=== PATIENT | male | born 1935 | race Caucasian/White ===

== ENCOUNTER 2024-10-27 14:46 | Inpatient (IN) | payer OTHER, MEDICARE, SELFPAY ==
[2024-10-27] VITALS (7 sets, daily range): BP systolic 134–165; BP diastolic 62–82; PULSE 60–79; RESP 14–16; TEMP 36.6–36.9; O2SAT 93–100; BMI 34.4; BMI 25.7
--- OUTSIDE RECORDS SUMMARY | 2024-10-27 15:02 | XMS_ITS | Clinical Summary ---
Author Organization [email or web address] Address [address] [place] [id number] Care Team Providers Care Hotbed Lever Operator Name Role Phone Adair Sharp MD Primary Care Provider Allergies No known active allergies Medications ascorbic acid (VITAMIN C) 500 mg tablet Take 1 tablet by mouth once daily. 0 1 Active latanoprost (XALATAN) 0.005 % ophthalmic solution INSTILL 1 DROP INTO EACH EYE IN THE EVENING 0 9 Active timolol maleate (TIMOPTIC) 0.5 % ophthalmic solution INSTILL 1 DROP INTO LEFT EYE IN THE MORNING 0 9 Active doxazosin (CARDURA) 4 mg tabletIndications:B enign prostatic hyperplasia with lower urinary tract symptoms, symptom details unspecified Take 1 Tablet (4 mg) by mouth at bedtime. 90 Tablet 3 4 Active hydroCHLOROthiazide 25 mg tabletIndications:E ssential hypertension Take 1 Tablet (25 mg) by mouth once daily. 90 Tablet 3 4 Active pravastatin (PRAVACHOL) 20 mg tabletIndications:H yperlipidemia, unspecified hyperlipidemia type Take 1 Tablet (20 mg) by mouth at bedtime. 90 Tablet 3 4 Active omeprazole (PRILOSEC) 20 mg Delayed-Release capsuleIndications: Gastroesophageal reflux disease with esophagitis without hemorrhage Take 1 Capsule (20 mg) by mouth once daily before a meal. 90 Capsule 3 4 Active Active Problems Problem Noted Date Diagnosed Date Essential hypertension 08/03/2021 Hyperlipidemia, unspecified 02/02/2020 Venous insufficiency 12/09/2019 Obesity (BMI 30-39.9) 01/31/2018 S/P total knee replacement, right 01/28/2018 Overview (01/28/2018): 2012 Esophageal reflux disease 10/22/2012 Malignant neoplasm of prostate 01/18/2011 Overview (01/28/2018): 2007, brachytherapy Other hyperlipidemia 01/20/2010 BPH (benign prostatic hyperplasia) 01/20/2010 Osteoarthritis 01/20/2010 Resolved Problems Problem Noted Date Diagnosed Date Resolved Date Venous ulcer of left leg 08/03/202109/2021 Venous ulcer of left leg 02/02/202103/2024 HTN (hypertension) 01/20/2010 0 Routine health maintenance 01/20/2010 1 Overview (01/20/2010): Last cpx-10/08 Last lipid 10/08, LDL-105 Last colonoscopy-09/30 Immunizations Immunization Administration Dates Next Due AMB Influenza, IIV4 PF (=>6 mos Flulaval,Fluzone Fluarix)(Flu Clinic Only) 01/07/2020,01/07/2020 COVID-19 vaccine (Moderna 100mcg/0.5mL) PF, MDV 06/12/2020,06/02/2020,05/15/2020 Influenza A (H1N1), Inactivated 04/14/2009 Influenza A (H1N1), Inactiva trupti (Age >=3 Years) 04/14/2009 Influenza, High-dose Inactivated 01/24/2016,12/31 Influenza, High-dose Quadriv alent Inactivated 12/22/2022,01/04/2022,01/05/2021 Influenza, IIV3 (Age 6-35 mos) 01/18/2011 Influenza, IIV3 (Age >=3 years) 01/19/20 11,12/21/2008,01/20/2005,01/04,01/28/2003,02/12/2002,02/13/2001 ,02/07/2000,01/22/1998 Influenza, Inactivated IIV3 (Age 65+ Years) Preserv Free 01/16/2019,01/28/2018,12/21/2016 Pneumococcal Conj 20-valent (Prevnar 20) 10/26/2022 Pneumococcal Poly,23-Valent (Pneumovax) 12/10/2002 Pneumococcal conj 13-Valent (Prevnar 13) 01/18/2015 RSV, Recombinant ADJ Reconst ituted (Arexvy 120MCG/0.5mL) 12/22/2022 Td (Age >=7 Years) 02/02/2021,12/03/2007, 999 Zoster (Shingrix-RZV, recombinant) 03/20/2022, Family History Medical History Relation Name Comments Cancer Father colon Cancer Mother breast Good Health Sister Relation Name Status Comments Father Mother Sister Social History Tobacco Use Types Packs/Day Years Used Date Smoking Tobacco: Former Cigarettes 3 39 1 165 - 1994 Smokeless Tobacco: Never Tobacco Cessation:Counseling Given: Yes Alcohol Use Standard Drinks/Week Comments No 0 (1 standard drink = 0.6 oz pur e alcohol) PHQ-2 Answer Date Recorded PHQ-2 TOTAL SCORE 0 03/31/2024 Social Connections Answer Date Recorded Do you often feel lonely or isolated from those around you? 0 03/31/2024 Financial Resource Strain Answer Date R ecorded Difficulty of Paying Living Expenses 3 03/31/2024 Difficulty of Paying Living Expenses Not on file 03/31/2024 Food Insecurity Answer Date Recorded Do you worry your food will run out before you are able to buy more? 1 03/31/2024 Transportation Needs Answer Date Record ed Does lack of transportation keep you from medica l appointments? 1 03/31/2024 Does lack of transportation keep you from work, meetings or getting things that you need? 1 03/31/2024 Housing Stability Answer Date Recorded What is your housing situation today? 1 03/31/2024 Utilities Answer Date Recorded Do you have trouble paying f or utilities (for example, heat, electricity, water, phone)? 1 03/31/2024 Sex and Gender Information Value Date Recorded Sex Assigned at Not on file Legal Sex Male 7:52 AM STOCK COUNTER Gender Identity Not on file Sexual Orientation Not on file Obstetrics History Last Filed Vital Signs Vital Sign Reading Time Taken Comments Blood Pressure 140/70 03/31/2024 10:17 AM STOCK COUNTER Pulse 64 03/31/2024 10:17 AM STOCK COUNTER Temperature 36.7 C (98 F) 07/29/2021 4:10 PM CDT Respiratory Rate 16 07/29/2021 5:57 PM CDT Oxygen Saturation 97% 08/03/2021 7:50 AM CDT Inhaled Oxygen Concentration - - Weight 120.7 kg (266 lb) 03/31/2024 10:17 AM STOCK COUNTER Height 185 cm (6' 0.84) 03/31/2024 10:17 AM STOCK COUNTER Body Mass Index 35.25 03/31/2024 10:17 AM STOCK COUNTER Plan of Treatment Health Maintenance Due Date Last Done Comments COVID-19 vaccine series ( season) 2024 12/17/2023, 01/12/2023, 01/04/2022, Additional history exists Influenza Vaccine (#1) 2024 , 01/07/2020, 01/16/2019, Additional history exists BMI (ht and wt on same day) for age 18+ 03/31/2025 03/31/2024, 02/07/2023, 02/06/2022, Additional history exists Depression screening for age 12+ 03/31/2025 03/31/2024, 02/07/2023, 02/07/2022, Additional history exists Medicare Wellness for age 65+ 04/01/2025 03/31/2024, 02/07/2023, 02/06/2022, Additional history exists Tetanus booster 02/02/2031 02/02/2021, 05/2007, 04/02/1998 Zoster (shingles) series for age 50+ Completed 03/20/2022, 01/14/2022 Pneumococcal series for age 50+ Completed 10/26/2022, 01/18/2015, 12/10/2002 RSV vaccine for adults or Completed 12/22/2022 Hepatitis B series for 19+ Aged Out N o longer eligible based on patient's age to complete this topic Insurance [facility] MR Care Teams Hotbed Lever Operator Relationship Specialty [place] [address] [place] [address] PCP - General Family Practice 01/28/18
--- NOTE | 2024-10-27 15:03 | CRLHL7_ITS ---
For Patients: As a result of the Cures Act, medical imaging exams and procedure reports are released immediately into your electronic medical record. You may view this report before your referring provider. If you have questions, please contact your health care provider. Indication: Left hip fracture. Technique: Frontal view of the pelvis two views left hip Comparison: None. Findings: Moderately displaced acted intertrochanteric comminuted left femoral neck fracture. The hip appears to be located with moderate osteoarthritis. The obturator ring is intact. Brachytherapy seeds within the prostate. Impression: Displaced left femoral neck fracture. Dictated by Perry Monzon MD @ 10/27/2024 4:29:45 PM (Electronically Signed)
--- NOTE | 2024-10-27 15:04 | ED.GENADULT ---
HPI - General Adult General Chief complaint: Extremity Pain/Injury, Lower Stated complaint: Unspecified complaint Time Seen by Provider: 10/27/24 14:49 Source: patient and EMS Mode of arrival: EMS Limitations: no limitations History of Present Illness HPI narrative: [age] year old male coming in today complaining of left hip pain. 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 He denies hitting his head, denies losing consciousness. Denies pain in the upper extremities, chest or abdomen. Past medical history significant for hypertension, hyperlipidemia. Related Data Home Medications ?Medication ?Instructions ?Recorded ?Confirmed doxazosin 4 mg tablet 4 mg PO HS 10/27/24 10/27/24 hydrochlorothiazide 25 mg tablet 25 mg PO DAILY 10/27/24 10/27/24 latanoprost 0.005 % eye drops 1 drp ophthalmic (eye) QPM 10/27/24 10/27/24 omeprazole 20 mg capsule,delayed 20 mg PO DAILY 10/27/24 10/27/24 release pravastatin 20 mg tablet 20 mg PO HS 10/27/24 10/27/24 timolol maleate 0.5 % eye drops 1 drp ophthalmic (eye-left) QAM 10/27/24 10/27/24 Allergies Allergy/AdvReac Type Severity Reaction Status Date / Time No Known Drug Allergies Allergy Verified 10/27/24 14:51 Review of Systems Status of ROS: Reports: 6 or more systems reviewed and unremarkable except as noted in History and below Exam Narrative: Exam Narrative: Well-nourished well-developed patient in no acute distress. Alert and oriented. Answers questions appropriately. Mood and affect are appropriate. Thoughts are goal oriented and rational. No tangential or magical thinking noted. Patient speaks in full sentences without needing to catch his breath. HEENT: Normocephalic atraumatic. Pupils are equally round reactive to light. Extraocular muscles are intact. Conjunctivae are moist without any icterus noted. Moist mucous membranes. Cardiovascular: Heart is regular rate and rhythm . Lungs: Clear to auscultation bilaterally no wheezes rhonchi or rales are appreciated. Patient takes deep breaths without any discomfort. Abdomen: Soft and nontender nondistended with normal bowel sounds. Extremities: Patient has tenderness to palpation over the superior lateral thigh. He cannot lift that left leg off the bed. Skin: Well perfused. Const: Vital Signs, click to edit/add: Vital Signs - 24 hr 10/27/24 14:49 Temperature 98.5 F Pulse Rate [Pulse Oximeter] 74 Respiratory Rate 16 Blood Pressure [Ri ght Upper Arm] 141/62 H Pulse Oximetry 93 Oxygen Delivery Me thod Room Air Course Course ED Course: Symptoms concerning for hip fracture. Therefore we proceeded with an x-ray of the hip which does show a displaced femoral neck fracture. Hemoglobins minimally low at 11.7, normal white cell count. Chemistries are unremarkable, but creatinine clearance 42. Chest x-ray, read by me, does not show any acute pathology. EKG, read by me, shows normal sinus rhythm with a pulse of 66, low voltage QRS. Patient given fentanyl for pain control. Discussed patient with Orthopedics team who recommended admission and probable surgery in the morning. Vital Signs Vital signs: Initial Vital Signs Temperature 98.5 F 10/27/24 14:49 Temperature Source Temporal Artery Scan 10/27/24 14:49 Pulse Rate 74 10/27/24 14:49 Respiratory Rate 16 10/27/24 14:49 Blood Pressure 141/62 H 10/27/24 14:49 Blood Pressure Mean 88 10/27/24 14:49 Blood Pressure Position Supine 10/27/24 14:49 Pulse Oximetry 93 10/27/24 14:49 Oxygen Delivery Method Room Air 10/27/24 14:49 Vital Signs Temperature 98.5 F 10/27/24 14:49 Pulse Rate 74 10/27/24 14:49 Respiratory Rate 16 10/27/24 14:49 Blood Pressure 141/62 H 10/27/24 14:49 Pulse Oximetry 93 10/27/24 14:49 Oxygen Delivery Method Room Air 10/27/24 14:49 Temperature 98.5 F 10/27/24 14:49 Pulse Rate 74 10/27/24 14:49 Respiratory Rate 16 10/27/24 14:49 Blood Pressure 141/62 H 10/27/24 14:49 Pulse Oximetry 93 10/27/24 14:49 Oxygen Delivery Method Room Air 10/27/24 14:49 Medical Decision Making MDM Narrative Medical decision making narrative: 89-year-old male with a femoral neck fracture. Patient will be admitted for further management. Lab Data Lab results reviewed: Yes I reviewed the patient's lab results Labs: Lab Results 10/27/24 Range/Units 15:18 WBC 7.97 (4.50-11.00) K/uL RBC 4.10 L (4.30-5.90) m/uL Hgb 11.7 L (13.5-17.5) gm/dL Hct 35.3 L (37.0-53.0) % MCV 86 (80-100) fL MCH 29 (26-34) pg MCHC 33 (32-36) gm/dL RDW Coeff of Marita 14.2 (11.5-15.5) % Plt Count 142 (140-440) K/uL Neut % (Auto) 68.3 (42.0-72.0) % Lymph % (Auto) 17.6 L (20-44) % Becker % (Auto) 8.3 (0.0-11.0) % Eos % (Auto) 4.9 (0.0-7.0) % Baso % (Auto) 0.6 (0.0-3.0) % Neut # (Auto) 5.45 (1.7-7.0) K/uL Lymph # (Auto) 1.40 (0.90-2.90) K/uL Becker # (Auto) 0.70 (0.00-0.90) K/UL Eos # (Auto) 0.39 (0.00-0.50) K/uL Baso # (Auto) 0.05 (0.00-0.30) K/uL Abs Immat Gran (auto) 0.02 (0.00-0.30) K/uL Imm/Tot Granulo (auto) 0.3 % Sodium 138 (135-149) mmol/L Potassium 4.1 (3.6-5.1) mmol/L Chloride 105 (96-114) mmol/L Carbon Dioxide 27 (20-32) mmol/L Anion Gap 6 L (7-15) mEq/L BUN 27 (7-30) mg/dL Creatinine 1.4 (0.5-1.5) mg/dL Estimated Creat Clear 42.75 Estimated GFR 48 ml/min Glucose 150 H (60-115) mg/dL Calcium 8.8 (8.4-10.6) mg/dL Imaging Data X-ray hip: Attestation: I have reviewed the pertinent imaging results. Radiologist's impression: Technique: Frontal view of the pelvis two views left hip Comparison: None. Findings: Moderately displaced acted intertrochanteric comminuted left femoral neck fracture. The hip appears to be located with moderate osteoarthritis. The obturator ring is intact. Brachytherapy seeds within the prostate. Impression: Displaced left femoral neck fracture. Chest x-ray: Attestation: I have reviewed the pertinent imaging results. Radiologist's impression: TECHNIQUE: Chest radiograph 1 view COMPARISON: None FINDINGS: The sensitivity and specificity of the exam are severely limited by the patient`s body habitus. Mediastinum: The mediastinum is normal in appearance. The heart silhouette is normal in size and morphology. Lung: Both lungs are unremarkable in appearance. No sign of pleural effusion seen. No pneumothorax is identified. The left lateral costophrenic sulcus is partially excluded. Bone and Soft tissue: Mild dextroscoliosis of the thoracic spine with moderate degenerative disc disease seen. IMPRESSION: 1. No acute cardiopulmonary disease is seen. If there is a high clinical index of suspicion for rib injury, dedicated rib series radiographs are recommended. ECG Data Attestation: I personally reviewed and interpreted this ECG as follows: Discharge Plan Discharge Clinical Impression: Intertrochanteric fracture of femur Patient Disposition: Admitted As Inpatient Condition: Stable
--- NOTE | 2024-10-27 15:06 | CRLHL7_ITS ---
For Patients: As a result of the Cures Act, medical imaging exams and procedure reports are released immediately into your electronic medical record. You may view this report before your referring provider. If you have questions, please contact your health care provider. INDICATION: Fall, chest injury TECHNIQUE: Chest radiograph 1 view COMPARISON: None FINDINGS: The sensitivity and specificity of the exam are severely limited by the patient`s body habitus. Mediastinum: The mediastinum is normal in appearance. The heart silhouette is normal in size and morphology. Lung: Both lungs are unremarkable in appearance. No sign of pleural effusion seen. No pneumothorax is identified. The left lateral costophrenic sulcus is partially excluded. Bone and Soft tissue: Mild dextroscoliosis of the thoracic spine with moderate degenerative disc disease seen. IMPRESSION: 1. No acute cardiopulmonary disease is seen. If there is a high clinical index of suspicion for rib injury, dedicated rib series radiographs are recommended. Dictated by Benjamin Becerra MD @ 10/27/2024 4:39:51 PM Dictated by: Benjamin Becerra MD @ 10/27/2024 16:39:54 (Electronically Signed)
[2024-10-27 15:26] LABS: Hematocrit* 35.3 % (37.0-53.0); Hemoglobin* 11.7 gm/dL (13.5-17.5); Immature Granulocytes Abs Auto 0.02 K/uL (0.00-0.30); Immature Granulocytes Pct Auto 0.3 %; Lymphocytes Absolute Auto 1.40 K/uL (0.90-2.90); Mean Corpuscular HGB Conc 33 gm/dL (32-36); Mean Corpuscular Hemoglobin 29 pg (26-34); Mean Corpuscular Volume 86 fL (80-100); RDW Coefficient of Variation % 14.2 % (11.5-15.5); Red Blood Count* 4.10 m/uL (4.30-5.90); White Blood Count* 7.97 K/uL (4.50-11.00)
[2024-10-27 15:36] LABS: Slide Review Reflex No
[2024-10-27 15:41] LABS: Chloride* 105 mmol/L (96-114); Potassium* 4.1 mmol/L (3.6-5.1); Sodium* 138 mmol/L (135-149)
[2024-10-27 15:44] LABS: Blood Urea Nitrogen* 27 mg/dL (7-30); Creatinine* 1.4 mg/dL (0.5-1.5); Est. Creatinine Clearance* 42.75; Estimated Glomerular Filt Rate 48 ml/min
[2024-10-27 15:45] LABS: Anion Gap 6 mEq/L (7-15); Calcium* 8.8 mg/dL (8.4-10.6); Carbon Dioxide* 27 mmol/L (20-32); Glucose* 150 mg/dL (60-115)
--- NOTE | 2024-10-27 17:39 | P.IMHP_ITS ---
Assessment and Plan Assessment and plan (1) Intertrochanteric fracture of femur: Problem comment: - status post fall from standing state, tripped over hose - Dr. Mcmanus, orthopedic surgeon, will consult with patient tomorrow for surgical repair options - NPO after midnight Status: Acute (2) Anemia: Problem comment: - chronic Status: Acute (3) Venous insufficiency: Problem comment: - chronic, utilizes compression wraps during the day Status: Acute (4) Essential hypertension: Status: Acute (5) BPH (benign prostatic hyperplasia): Status: Acute Plan 1. Reviewed impression, plans, recommendations with patient 2. Answered his questions to satisfaction 3. Check EKG 4. 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 Has had left hip pain since. 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 Unfortunately he tripped over a hose while carrying out this responsibility. No other pains. Denies striking his head or having loss of co nsciousness. In our emergency department he was found to have nondisplaced left femoral neck fracture. Consultation between the emergency department physician and orthopedic surgery physician undertaken and it was recommended that patient be admitted to the hospital for preparation for orthopedic surgery stabilization of the fracture tomorrow morning. Review of Systems Status of ROS: Reports: 6 or more systems reviewed and unremarkable except as noted in History and below Narrative: Generally healthy. Denies cardiopulmonary concerns. Active, still working. Denies gastrointestinal or genitourinary concerns. Acknowledges chronic bilateral lower extremity edema for which she utilizes compression wraps every morning and removes them in the evening. No other recent trauma or injury. No recent travel. No recent illness. Lives at home with his . They have been for 67 years. Review of outside medical record, 03/31/2024, with mini cog test score of 3 suggestive of possible cognitive impairment Medical Decision Making Medical Decision Making During This Stay, Who Would You Like To Make Decisions For You In The Event You Are Unable To Make Them For Yourself?: His son, Deuce, . Relevant situational information: Does not want to be kept alive in a persistent vegetative state. [facility] Medical History (Updated 10/27/24 @ 18:00 by Hossein Gonzales MD) Glaucoma ?H40.9 - Unspecified glaucoma (ICD-10) Venous insufficiency (12/09/19) ?I87.2 - Venous insufficiency (chronic) (peripheral) (ICD-10) Osteoarthritis (01/20/10) ?M19.90 - Unspecified osteoarthritis, unspecified site (ICD-10) Obesity (BMI 30-39.9) (01/31/18) ?E66.9 - Obesity, unspecified (ICD-10) Malignant neoplasm of prostate (01/18/11) ?C61 - Malignant neoplasm of prostate (ICD-10) Hyperlipidemia, unspecified (02/02/20) ?E78.5 - Hyperlipidemia, unspecified (ICD-10) Essential hypertension (08/03/21) ?I10 - Essential (primary) hypertension (ICD-10) Esophageal reflux disease (10/22/12) ?K21.9 - Gastro-esophageal reflux disease without esophagitis (ICD-10) BPH (benign prostatic hyperplasia) (01/20/10) ?N40.0 - Benign prostatic hyperplasia without lower urinary tract symptoms (ICD-10) Surgical History Status post right knee replacement ?Z96.651 - Presence of right artificial knee joint (ICD-10) Social History Smoking Status: Former smoker What tobacco products do you use: cigarettes Smoking quit date/years: >15 years ago How often do you have a drink containing alcohol: never AUDIT-C Alcohol total score: 0 Non-prescribed substance use: denies use Meds Home Medications and Allergies Home Medications ?Medication ?Instructions ?Recorded ?Confirmed ?Type doxazosin 4 mg tablet 4 mg PO HS 10/27/24 10/27/24 History hydrochlorothiazide 25 mg tablet 25 mg PO DAILY 10/27/24 History latanoprost 0.005 % eye drops 1 drp ophthalmic (eye) Q PM 10/27/24 10/27/24 History omeprazole 20 mg capsule,delayed 20 mg PO DAILY 10/27/24 History release pravastatin 20 mg tablet 20 mg PO HS 10/27/24 5 History timolol maleate 0.5 % eye drops 1 drp ophthalmic (eye- left) QAM 10/27/24 10/27/24 History Allergies Allergy/AdvReac Type Severity Reaction Status Date / Time No Known Drug Allergies Allergy Verified 10/27/24 14:51 Exam Narrative: Exam Narrative: Examined patient in the emergency department. He is semi recumbent with the head of the bed elevated about 30? and legs extended in front of him and he appears comfortable. Alert and oriented x4. Friendly, articulate, cooperative. Vision and hearing are adequate. Midline nasal septum. Dentition in fair repair. Moist buccal mucosa. No icterus. Conjugate gaze. Neck is supple. Midline trachea. No head neck lymphadenopathy. No hepatojugular reflux or carotid bruits. Lungs are clear to auscultation without wheezing, rhonchi, rales. Chest wall excursions are full. No CVA tenderness. Heart tones with regular rhythm, normal S1-S2, grade 2/6 systolic murmur across precordium. Abdomen with active bowel sounds, soft, nontender. Bilateral lower extremities with compression wraps. Trace edema lower extremities. Palpable pulses upper and lower extremities. No focal motor neurologic deficits. Cranial nerves 3-12 grossly normal. Skin is dry, intact. Const: Vital Signs, click to edit/add: Vital Signs - 24 hr 10/27/24 14:49 10/27/24 16:53 10/27/24 17:00 Temperature 98.5 F Pulse Rate 71 Pulse Rate [Pulse Oximeter] 74 Respiratory Rate 16 14 Blood Pressure 162/82 H Blood Pressure [Ri ght Upper Arm] 141/62 H Pulse Oximetry 93 100 98 Oxygen Delivery Me thod Room Air Hospitalist - H&P: Result Labs Labs: Short CBC 10/27/24 Range/Units 15:18 WBC 7.97 (4.50-11.00) K/uL Hgb 11.7 L (13.5-17.5) gm/dL Hct 35.3 L (37.0-53.0) % Plt Count 142 (140-440) K/uL [facility] 10/27/24 15:18 Sodium 138 Potassium 4.1 Chloride 105 Carbon Dioxide 27 BUN 27 Creatinine 1.4 Glucose 150 H Calcium 8.8 Imaging Left hip x-ray: Attestation: I have reviewed the pertinent imaging results. Radiologist's impression: Findings: Moderately displaced acted intertrochanteric comminuted left femoral neck fracture. The hip appears to be located with moderate osteoarthritis. The obturator ring is intact. Brachytherapy seeds within the prostate. Impression: Displaced left femoral neck fracture. Chest x-ray: Attestation: I have reviewed the pertinent imaging results. Radiologist's impression: No acute cardiopulmonary process and no obvious rib fracture
--- NOTE | 2024-10-27 18:44 | PC.NURSE ---
Pt up to floor at 1615, VSS but hypertensive. Rates pain in the left hip 3 when not moving and 7-8/10 when moving. Alert and oriented x4, Afebrile and 95% on RA. Patient wraps legs bilaterally with ARUNA bandage every morning and takes off at NOC. Patient tolerating a reg diet but will be NPO in prep for surgery 10/[address] Mcmanus.
[2024-10-27] MEDS: ACETAMINOPHEN 325 MG TABLET 650 MG PO (20:33)
[2024-10-27] MEDS: SODIUM CHLORIDE 0.9 % (FLUSH) 10 ML SYRINGE 5 ML IVF (20:34)
[2024-10-27] MEDS: MORPHINE 4 MG/ML INJ IVP (20:42)
[2024-10-27] MEDS: DOXAZOSIN 4 MG TABLET PO (21:05)
[2024-10-28] VITALS (27 sets, daily range): BP systolic 94–156; BP diastolic 50–89; PULSE 56–97; RESP 12–24; TEMP 36.1–36.9; O2SAT 90–97
[2024-10-28] MEDS: MORPHINE 4 MG/ML INJ IVP (02:23)
[2024-10-28] MEDS: SODIUM CHLORIDE 0.9 % (FLUSH) 10 ML SYRINGE 5 ML IVF (02:23)
--- NOTE | 2024-10-28 06:35 | PC.NURSE ---
End of shift report [id number]: VSS. Afebrile. On RA. AxOx4. Rates pain from a 2-4/10 prn pain meds offered and given with relief. Intermittent ice applied. Pt NPO since 0000. Compression wraps removed overnight per pts request, BLE 2+ pitting edema. Pt utilizes urinal at bedside. Bed alarm on, call light within reach.?
[2024-10-28 06:54] LABS: HCO3 VBG 27 mmol/L (21-28); Hematocrit* 30.2 % (37.0-53.0); Hemoglobin* 10.0 gm/dL (13.5-17.5); Lactate* 1.6 mmol/L (0.5-1.9); Mean Corpuscular HGB Conc 33 gm/dL (32-36); Mean Corpuscular Hemoglobin 28 pg (26-34); Mean Corpuscular Volume 86 fL (80-100); PCO2 VBG 45 mmHG (40-50); PO2 VBG 33.5 mmHG (25-47); Red Blood Count* 3.52 m/uL (4.30-5.90); White Blood Count* 9.41 K/uL (4.50-11.00); pH VBG 7.393 (7.32-7.43)
[2024-10-28 06:56] LABS: Slide Review Reflex No
[2024-10-28 07:15] LABS: Albumin* 3.2 g/dL (3.3-5.0); Chloride* 103 mmol/L (96-114); Sodium* 135 mmol/L (135-149)
[2024-10-28 07:16] LABS: Potassium* 3.8 mmol/L (3.6-5.1)
[2024-10-28 07:18] LABS: Blood Urea Nitrogen* 31 mg/dL (7-30); Creatinine* 1.4 mg/dL (0.5-1.5); Est. Creatinine Clearance* 42.75; Estimated Glomerular Filt Rate 48 ml/min
[2024-10-28 07:19] LABS: Anion Gap 5 mEq/L (7-15); Calcium* 8.3 mg/dL (8.4-10.6); Carbon Dioxide* 27 mmol/L (20-32); Glucose* 137 mg/dL (60-115)
[2024-10-28] MEDS: LACTATED RINGERS 1000 ML 1,000 ML 125 ML IV ×2 (08:31→10:30)
--- NOTE | 2024-10-28 08:48 | CRLHL7_ITS ---
For Patients: As a result of the Century Cures Act, medical imaging exams and procedure reports are released immediately into your electronic medical record. You may view this report before your referring provider. If you have questions, please contact your health care provider. INDICATION: Intraoperative guidance. IMPRESSION: Fluoroscopic imaging provided for the procedure. 125 seconds fluoro time reported. Four images show cephalomedullary nail placement left hip and femur. Brachytherapy seeds noted in the expected position of the prostate. Dictated by Mazin Gallardo MD @ 11/01/2024 12:42:31 PM (Electronically Signed)
--- NOTE | 2024-10-28 10:22 | P.NB_ITS ---
Nerve Block Nerve Block Time Seen by Provider: 08:45 Date Seen: 10/28/24 Type of block requested by surgeon for post-operative analgesia: CHAI/LFCN Side: left Time out performed: Yes Verification of patient name: Yes Verification of date of : Yes Site marking: site marked Name of person performing procedure: Ivana Continuous monitoring Was continuous monitoring of O2 sat, B/P, manager monitoring, recorded every 15 minutes?: Yes Procedure Checklist: sterile prep, needles and gloves Ultrasound guided. Images saved: Yes Medications given in 5ml increments after negative aspiration: Ropivicaine %: 0.5 mL: 26 Needle gauge: 20 Precedex (mcg): 25 Patient tolerated procedure well: Yes Block Charges Block Charge (with Pro Fee): Other Periph Nerve Block Use of Ultrasound Machine for Block: Yes- US Guidance/pain block
--- NOTE | 2024-10-28 10:33 | PM.ORCN ---
History of Present Illness HPI Date Seen: 10/28/24 Chief complaint: Right hip pain status post fall from standing Narrative: Patient is a community ambulator, without assist. He fell yesterday sustaining a left hip fracture. He is admitted for treatment. He has never injured this hip or had surgery on it previously. He does not have diabetes, does not smoke cigarettes and is not on blood thinners. Review of Systems Narrative: The patient denies: Fever, night sweats, shaking chills, nausea, vomiting, diarrhea, chest pain, chest pressure, shortness of breath, no rash, no change in hearing or vision, no issues with bleeding or clotting [facility] Medical History Glaucoma ?H40.9 - Unspecified glaucoma (ICD-10) Venous insufficiency (12/09/19) ?I87.2 - Venous insufficiency (chronic) (peripheral) (ICD-10) Osteoarthritis (01/20/10) ?M19.90 - Unspecified osteoarthritis, unspecified site (ICD-10) Obesity (BMI 30-39.9) (01/31/18) ?E66.9 - Obesity, unspecified (ICD-10) Malignant neoplasm of prostate (01/18/11) ?C61 - Malignant neoplasm of prostate (ICD-10) Hyperlipidemia, unspecified (02/02/20) ?E78.5 - Hyperlipidemia, unspecified (ICD-10) Essential hypertension (08/03/21) ?I10 - Essential (primary) hypertension (ICD-10) Esophageal reflux disease (10/22/12) ?K21.9 - Gastro-esophageal reflux disease without esophagitis (ICD-10) BPH (benign prostatic hyperplasia) (01/20/10) ?N40.0 - Benign prostatic hyperplasia without lower urinary tract symptoms (ICD-10) Surgical History Status post right knee replacement ?Z96.651 - Presence of right artificial knee joint (ICD-10) Social History What is your current living situation?: I presently have a place to live Problems where you live: no known problems Problems where you live details: no known problems In the past 12 months, utilities in danger of being shut off: no In past 12 months, lack of transportation kept you from medical appts, meetings, work, or getting things needed for daily living: no In the past 12 mos, have been you worried that your food would run out before you had money to buy more?: never true In the past 12 mos, the food you bought just didn't last and you didn't have money to buy more?: never true Highest level of school completed/degree received: high school graduate Smoking Status: Former smoker What tobacco products do you use: cigarettes Smoking quit date/years: >15 years ago How often do you have a drink containing alcohol: never AUDIT-C Alcohol total score: 0 Non-prescribed substance use: denies use Caffeine: Yes How often does anyone, including family, friends and others, physically hurt you: never How often does anyone, including family, friends and others, insult or talk down to you: never How often does anyone, including family, friends and others, threaten you with harm: never How often does anyone, including family, friends and others, scream or curse at you: never service: Yes Meds Home Medications and Allergies Home Medications ?Medication ?Instructions ?Recorded ?Confirmed ?Type doxazosin 4 mg tablet 4 mg PO HS 10/27/24 10/27/24 History hydrochlorothiazide 25 mg tablet 25 mg PO DAILY 10/27/24 10/27/24 History latanoprost 0.005 % eye drops 1 drp ophthalmic (eye) QPM 10/27/24 10/27/24 History omeprazole 20 mg capsule,delayed 20 mg PO DAILY 10/27/24 10/27/24 History release pravastatin 20 mg tablet 20 mg PO HS 10/27/24 10/27/24 History timolol maleate 0.5 % eye drops 1 drp ophthalmic (eye-left) QAM 10/27/24 10/27/24 History Allergies Allergy/AdvReac Type Severity Reaction Status Date / Time No Known Drug Allergies Allergy Verified 10/27/24 14:51 Ortho Exam Narrative Exam Narrative: The patient is alert and oriented x3, in no acute distress, they are able to converse in a normal speaking voice without obvious hearing loss and with nonlabored breathing. The patient is examined supine in the hospital bed. The skin about the left hip is intact, without surgical scars or ecchymosis. CMS to the left foot is normal. Const Vital Signs, click to edit/add: Vital Signs - 24 hr 10/27/24 14:49 10/27/24 16:53 10/27/24 17:00 Temperature 98.5 F Pulse Rate 71 Pulse Rate [Pulse Oximeter] 74 Respiratory Rate 16 14 Blood Pressure 162/82 H Blood Pressure [Right Arm] Blood Pressure [Right Upper Arm] 141/62 H Pulse Oximetry 93 100 98 Oxygen Delivery Method Room Air 10/27/24 18:13 10/27/24 18:13 10/27/24 19:00 Temperature 97.8 F 97.9 F Pulse Rate Pulse Rate [Pulse Oximeter] 68 79 Respiratory Rate 16 16 16 Blood Pressure Blood Pressure [Right Arm] 165/74 H 134/68 Blood Pressure [Right Upper Arm] Pulse Oximetry 95 95 97 Oxygen Delivery Method Room Air Room Air Room Air 10/27/24 19:41 10/27/24 23:00 10/27/24 23:00 Temperature 98.4 F Pulse Rate Pulse Rate [Pulse Oximeter] 79 60 Respiratory Rate 16 16 16 Blood Pressure Blood Pressure [Right Arm] 143/76 H Blood Pressure [Right Upper Arm] Pulse Oximetry 94 94 Oxygen Delivery Method Room Air Room Air 10/28/24 03:00 10/28/24 07:00 10/28/24 07:00 Temperature 97.7 F Pulse Rate Pulse Rate [Pulse Oximeter] 72 72 Respiratory Rate 18 18 18 Blood Pressure Blood Pressure [Right Arm] 146/80 H Blood Pressure [Right Upper Arm] Pulse Oximetry 95 95 Oxygen Delivery Method Room Air Room Air 10/28/24 07:00 Temperature 98.5 F Pulse Rate Pulse Rate [Pulse Oximeter] 75 Respiratory Rate 18 Blood Pressure Blood Pressure [Right Arm] 142/65 H Blood Pressure [Right Upper Arm] Pulse Oximetry 95 Oxygen Delivery Method Room Air Results Labs Labs: Laboratory Results - last 48 hr 10/27/24 10/28/24 15:18 06:00 WBC 7.97 9.41 RBC 4.10 L 3.52 L Hgb 11.7 L 10.0 L Hct 35.3 L 30.2 L MCV 86 86 MCH 29 28 MCHC 33 33 RDW Coeff of Marita 14.2 Plt Count 142 133 L Neut % (Auto) 68.3 Lymph % (Auto) 17.6 L Rooks % (Auto) 8.3 Eos % (Auto) 4.9 Baso % (Auto) 0.6 Neut # (Auto) 5.45 Lymph # (Auto) 1.40 Rooks # (Auto) 0.70 Eos # (Auto) 0.39 Baso # (Auto) 0.05 Abs Immat Gran (auto) 0.02 Imm/Tot Granulo (auto) 0.3 VBG pH 7.393 VBG pCO2 45 VBG pO2 33.5 VBG HCO3 27 Sodium 138 135 Potassium 4.1 3.8 Chloride 105 103 Carbon Dioxide 27 27 Anion Gap 6 L 5 L BUN 27 31 H Creatinine 1.4 1.4 Estimated Creat Clear 42.75 42.75 Estimated GFR 48 48 Glucose 150 H 137 H Hemoglobin A1c 6.1 H Lactate 1.6 Calcium 8.8 8.3 L Phosphorus 3.6 Magnesium 1.9 C-Reactive Protein 2.5 H Albumin 3.2 L TSH 5.180 H Diagnostic results Additional Comments: An AP pelvis, AP and cross-table lateral view of the left hip show a 3 part intertrochanteric fracture. There is pre-existing Tonnis grade 2 left hip osteoarthritis with superior joint space narrowing not [id number], lateral osteophytic spurring. No real subchondral sclerosis or subchondral cysts. Assessment and Plan Assessment and plan (1) Intertrochanteric fracture of femur: Problem comment: - status post fall from standing state, tripped over hose - Dr. Mcmanus, orthopedic surgeon, will consult with patient tomorrow for surgical repair options - NPO after midnight Status: Acute Total time spent: Total time spent is greater than 50% in coordination of care (as documented) at patient's floor/unit and/or counseling patient: (2) Anemia: Problem comment: - chronic Status: Acute Total time spent: Total time spent is greater than 50% in coordination of care (as documented) at patient's floor/unit and/or counseling patient: (3) Venous insufficiency: Problem comment: - chronic, utilizes compression wraps during the day Status: Acute Total time spent: Total time spent is greater than 50% in coordination of care (as documented) at patient's floor/unit and/or counseling patient: (4) Essential hypertension: Status: Acute Total time spent: Total time spent is greater than 50% in coordination of care (as documented) at patient's floor/unit and/or counseling patient: (5) BPH (benign prostatic hyperplasia): Status: Acute Total time spent: Total time spent is greater than 50% in coordination of care (as documented) at patient's floor/unit and/or counseling patient: Plan Assessment: Three-part left hip intertrochanteric fracture Jose grade 2 left hip osteoarthritis Plan: He has been medically cleared for surgery. Therefore, we will plan to take him to the operating room today for ORIF of his left hip fracture.
--- NOTE | 2024-10-28 10:36 | PM.ORPRC ---
Procedure Note Date of procedure: 10/28/24 Procedure: PREOPERATIVE DIAGNOSIS: Left hip 3 part intertrochanteric fracture POSTOPERATIVE DIAGNOSIS: Left hip 3 part intertrochanteric fracture NAME OF OPERATION: Left hip fracture ORIF SURGEON: Mick Mcmanus MD NAIL KEGGER: HENRI Fuchs IMPLANTS: Synthes intramedullary hip screw 12 mm x 170 mm with a 115 mm lag screw and a 40 mm distal interlocking screw ANESTHESIA: Spinal ESTIMATED BLOOD LOSS: 50 mL COMPLICATIONS: None SPECIMENS: None DRAINS: None PREOPERATIVE ANTIBIOTICS: Ancef 2 gram INDICATIONS: The patient is a 89-year-old who fell yesterday sustaining a 3 part intertrochanteric fracture of the left hip. They were admitted for workup and care. They have been medically cleared for surgery. The risks, benefits and expected outcomes were discussed in detail. These included but were not limited to: Infection, bleeding, injury to blood vessel or nerve, venous thromboembolism. All questions were answered to their satisfaction. Use of an human resources executive assistant was necessary for patient positioning and safety, soft tissue retraction and closure, dressing application, and transfer of the patient to and from the hospital bed to the fracture table. PROCEDURE: Spinal anesthesia was administered. The patient was placed supine on the fracture table. The left lower extremity was prepped and draped in the usual sterile fashion. The limb was placed in longitudinal traction. Our provisional reduction was confirmed with the C-arm. The guide pin was placed percutaneously to the tip of the greater trochanter. It was advanced into the canal. Its placement was confirmed with the image intensifier in both AP and lateral views. We then made a stab incision around the guide pin. The soft tissue sleeve was advanced to the tip of the trochanter. The opening reamer was used. The intramedullary nail was placed. The guide pin was taken to the subchondral bone of the femoral head on both the AP and lateral views. It was placed in the posterior, inferior aspect of the head. The drill and the tap were used. We placed the 115 mm lag screw. Our reduction remains anatomic. Traction was released. The fracture was compressed. The lag screw was set to dynamic mode. That is it was not locked. We placed the distal interlocking screw. This construct was imaged in the AP and lateral views and was felt to be well placed with an anatomic reduction. The wounds were irrigated with normal saline. They were closed with Vicryl deep and Monocryl in the skin. A dry dressing was applied. Sponge and needle counts were correct x2. The patient tolerated the procedure well. There were no apparent complications. They were carefully transferred to the hospital bed and taken to the postanesthesia care unit in satisfactory condition. PLAN: The patient will be mobilized with physical therapy. They [may weightbear as tolerates on the left lower extremity. Xarelto will be used for DVT prophylaxis. They will be discharged to a retirement once medically appropriate.
--- NOTE | 2024-10-28 10:48 | P.ANES_ITS ---
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
--- NOTE | 2024-10-28 10:48 | W.ANESCHARGE ---
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
--- NOTE | 2024-10-28 10:58 | PC.SOCIAL ---
Addendum entered by JORDAN Mejia 10/28/24 16:01: Discharge planning: custom shop worker met with pt this afternoon after his surgery and physical therapy session. Pt stated to this worker, as he also did to the physical therapist, that he does not want to go to rehab after this hospital stay and would really like to go home, so that he can also be with his . custom shop worker will share this news with the team in rounds and check back in with the pt in the morning. Social work to follow-up as needed. Original Note: Discharge planning: custom shop worker met with pt's family(pt was still in surgery) to inquire if they knew if the pt was filing a worker's compensation claim. Family stated that the pt was at work when the fall/fracture happened, but they were not sure if it would be a work comp claim or not. custom shop worker did provide the family with the list [facility] for their reference in anticipation of the pt needing a short-term rehab stay after the hospital. Social work to follow-up as needed.
--- NOTE | 2024-10-28 11:08 | SUR.PHASEI ---
Patient arrived in PACU sleepy with oral airway and oxygen on per mask at 6l/m. When he was more alert he spit out oral airway. He denies pain, nausea or being cold. Oxygen off after 15 minutes in PACU. Oxygen saturation varies between 94% to 90%. Mask reapplied for another 5 minutes until he is more awake. Patient can't move feet yet. Legs still feel numb when asked.
--- NOTE | 2024-10-28 11:20 | SUR.PHASEI ---
Patient awake and comfortable. Oxygen off for 10 minutes and maintains a saturaion of 92%. Meets discharge criteria from PACU.
[2024-10-28] MEDS: ACETAMINOPHEN 325 MG TABLET 650 MG PO ×2 (14:36→19:57)
--- NOTE | 2024-10-28 15:42 | PM.IMPN1 ---
Assessment and Plan Assessment and plan (1) Intertrochanteric fracture of femur: Problem comment: - status post fall from standing state, ORIF by Dr. Mcmanus on 10/28/2024. No complications. Status: Acute (2) Anemia: Problem comment: Hemoglobin January 2023 was 13.5. Hemoglobin 11.7 on admission possibly due to blood loss from hip fracture Status: Acute (3) Venous insufficiency: Problem comment: - chronic, utilizes compression wraps during the day Status: Acute (4) Essential hypertension: Problem comment: Restart home blood pressure medicines as tolerated Status: Acute (5) BPH (benign prostatic hyperplasia): Problem comment: Monitor bladder scan. Status: Acute Plan 89-year-old male admitted to the hospital with left intertrochanteric femur fracture. Proceeded to surgery today with Dr. Mcmanus for ORIF. Uncomplicated. Postop doing well. Continue to monitor chronic medical problems as above. Pain control and therapy. 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 Has had left hip pain since. 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 Unfortunately he tripped over a hose while carrying out this responsibility. No other pains. Denies striking his head or having loss of consciousness. In our emergency department he was found to have nondisplaced left femoral neck fracture. Consultation between the emergency department physician and orthopedic surgery physician undertaken and it was recommended that patient be admitted to the hospital for preparation for orthopedic surgery stabilization of the fracture tomorrow morning. Patient reports he has otherwise been doing well recently. He has no other health concerns. No other injuries besides his hip. Exam Narrative: Exam Narrative: He is alert and appears in no distress. Respirations are clear to auscultation. Cardiovascular: S1, S2, 1/6 systolic murmur. No gallop or rub. Abdomen: Bowel sounds active. Abdomen is soft without tenderness. Lower extremities with intact pulses and sensation and motion bilaterally. 1+ edema bilaterally. Const: Vital Signs, click to edit/add: Vital Signs - 24 hr 10/27/24 16:53 10/27/24 17:00 10/27/24 18:13 Temperature 97.8 F Pulse Rate 71 Pulse Rate [Pulse Oximeter] 68 Respiratory Rate 14 16 Blood Pressure 162/82 H Blood Pressure [Ri ght Arm] 165/74 H Pulse Oximetry 100 98 95 Oxygen Delivery Me thod Room Air Oxygen Flow Rate 10/27/24 18:13 10/27/24 19:00 10/27/24 19:41 Temperature 97.9 F Pulse Rate Pulse Rate [Pulse Oximeter] 79 79 Respiratory Rate 16 16 16 Blood Pressure Blood Pressure [Ri ght Arm] 134/68 Pulse Oximetry 95 97 Oxygen Delivery Me thod Room Air Room Air Oxygen Flow Rate 10/27/24 23:00 10/27/24 23:00 10/28/24 03:00 Temperature 98.4 F 97.7 F Pulse Rate Pulse Rate [Pulse Oximeter] 60 72 Respiratory Rate 16 16 18 Blood Pressure Blood Pressure [Ri ght Arm] 143/76 H 146/80 H Pulse Oximetry 94 94 95 Oxygen Delivery Me thod Room Air Room Air Room Air Oxygen Flow Rate 10/28/24 07:00 10/28/24 07:00 10/28/24 07:00 Temperature 98.5 F Pulse Rate Pulse Rate [Pulse Oximeter] 72 75 Respiratory Rate 18 18 18 Blood Pressure Blood Pressure [Ri ght Arm] 142/65 H Pulse Oximetry 95 95 Oxygen Delivery Me thod Room Air Room Air Oxygen Flow Rate 10/28/24 10:44 10/28/24 10:50 10/28/24 10:54 Temperature 97.4 F L Pulse Rate 70 63 59 L Pulse Rate [Pulse Oximeter] Respiratory Rate 24 12 12 Blood Pressure 99/54 L 104/57 L 109/59 L Blood Pressure [Ri ght Arm] Pulse Oximetry 95 95 95 Oxygen Delivery Me thod Aerosol Mask Oxygen Flow Rate 6 10/28/24 11:00 10/28/24 11:05 10/28/24 11:10 Temperature Pulse Rate 58 L 57 L 56 L Pulse Rate [Pulse Oximeter] Respiratory Rate 12 12 12 Blood Pressure 117/58 L 112/61 115/62 Blood Pressure [Ri ght Arm] Pulse Oximetry 94 92 96 Oxygen Delivery Me thod Room Air Aerosol Mask Oxygen Flow Rate 4 10/28/24 11:15 10/28/24 11:19 10/28/24 11:35 Temperature 97.0 F L Pulse Rate 56 L 59 L Pulse Rate [Pulse Oximeter] 60 Respiratory Rate 12 13 16 Blood Pressure 118/60 115/59 L Blood Pressure [Ri ght Arm] 135/68 Pulse Oximetry 91 92 90 Oxygen Delivery Me thod Room Air Room Air Room Air Oxygen Flow Rate 10/28/24 11:45 10/28/24 12:00 10/28/24 12:15 Temperature 97.2 F L Pulse Rate Pulse Rate [Pulse Oximeter] 65 58 L 68 Respiratory Rate 16 22 16 Blood Pressure Blood Pressure [Ri ght Arm] 152/80 H 145/67 H 134/89 Pulse Oximetry 90 94 91 Oxygen Delivery Me thod Room Air Room Air Room Air Oxygen Flow Rate 10/28/24 12:30 10/28/24 13:00 10/28/24 13:30 Temperature Pulse Rate Pulse Rate [Pulse Oximeter] 66 63 70 Respiratory Rate 16 16 18 Blood Pressure Blood Pressure [Ri ght Arm] 121/62 127/58 L 156/61 H Pulse Oximetry 92 96 94 Oxygen Delivery Me thod Room Air Room Air Room Air Oxygen Flow Rate 10/28/24 15:00 10/28/24 15:00 Temperature Pulse Rate Pulse Rate [Pulse Oximeter] 70 Respiratory Rate 18 18 Blood Pressure Blood Pressure [Ri ght Arm] Pulse Oximetry 91 Oxygen Delivery Me thod Room Air Oxygen Flow Rate Documenting provider has reviewed patient's vital signs: yes Labs Labs: Laboratory Results - last 24 hr 10/27/24 10/28/24 15:18 06:00 WBC 9.41 RBC 3.52 L Hgb 10.0 L Hct 30.2 L MCV 86 MCH 28 MCHC 33 Plt Count 133 L VBG pH 7.393 VBG pCO2 45 VBG pO2 33.5 VBG HCO3 27 Sodium 138 135 Potassium 4.1 3.8 Chloride 105 103 Carbon Dioxide 27 27 Anion Gap 6 L 5 L BUN 27 31 H Creatinine 1.4 1.4 Estimated Creat Clear 42.75 42.75 Estimated GFR 48 48 Glucose 150 H 137 H Hemoglobin A1c 6.1 H Lactate 1.6 Calcium 8.8 8.3 L Phosphorus 3.6 Magnesium 1.9 C-Reactive Protein 2.5 H Albumin 3.2 L TSH 5.180 H
[2024-10-28] MEDS: CEFAZOLIN 2 GM in 0.9 % SODIUM CHLORIDE Mini-bag 100 ML IVPB (17:42)
--- NOTE | 2024-10-28 18:41 | PC.NURSE ---
Nursing Care Hours: 4839-1511 Pt this shift calm and cooperative, alert and oriented. Pre op education and prep completed without issue. Arrived back from PACU in stable condition. Post op recovery met without issue. Pt did walk to BR with [address] back from BR pt stopped and reported feeling dizzy. Chair brought to pt and BP taken, see VS. When pt felt ready about 2 min later, walked to the recliner and BP taken again with lower reading. See VS.
--- NOTE | 2024-10-28 18:47 | PC.NURSE ---
Nursing Care Hours: 3605-2054 Pre op education and prep completed without issue. Pt arrived from PACU alert and oriented. Post op recovery completed without issue. 2 assist with walker and gait belt to BR. On the way back from BR, pt stopped and c/o feeling dizzy. Chair brought to pt to sit. BP checked and WNL, see VS. Walked back to recliner when pt ready, rechecked BP which was soft, see VS. Pedal pulse present, CMS intact. Pain minimal with movement, treated per eMAR. Pt saline locked and tolerating PO intake.
[2024-10-28] MEDS: DOXAZOSIN 4 MG TABLET PO (19:58)
[2024-10-28] MEDS: SENNOSIDES 1 TAB TABLET 2 TAB PO (20:04)
[2024-10-29] VITALS (7 sets, daily range): BP systolic 121–133; BP diastolic 50–66; PULSE 70–96; RESP 16–28; TEMP 36.6–37; O2SAT 92–94
[2024-10-29] MEDS: CEFAZOLIN 2 GM in 0.9 % SODIUM CHLORIDE Mini-bag 100 ML IVPB (01:14)
[2024-10-29] MEDS: ACETAMINOPHEN 325 MG TABLET 650 MG PO ×4 (01:58→19:47)
[2024-10-29] MEDS: CALCIUM CARBONATE 500 MG CHEW PO (02:06)
[2024-10-29 06:44] LABS: Hematocrit* 24.3 % (37.0-53.0); Hemoglobin* 8.2 gm/dL (13.5-17.5); Immature Granulocytes Abs Auto 0.05 K/uL (0.00-0.30); Immature Granulocytes Pct Auto 0.5 %; Mean Corpuscular HGB Conc 34 gm/dL (32-36); Mean Corpuscular Hemoglobin 29 pg (26-34); Mean Corpuscular Volume 86 fL (80-100); RDW Coefficient of Variation % 14.3 % (11.5-15.5); Red Blood Count* 2.82 m/uL (4.30-5.90); White Blood Count* 10.10 K/uL (4.50-11.00)
[2024-10-29 06:45] LABS: Chloride* 98 mmol/L (96-114); Sodium* 131 mmol/L (135-149)
[2024-10-29 06:46] LABS: Potassium* 3.9 mmol/L (3.6-5.1)
[2024-10-29 06:48] LABS: Blood Urea Nitrogen* 37 mg/dL (7-30)
[2024-10-29 06:49] LABS: Anion Gap 6 mEq/L (7-15); Calcium* 8.1 mg/dL (8.4-10.6); Carbon Dioxide* 27 mmol/L (20-32); Creatinine* 1.6 mg/dL (0.5-1.5); Est. Creatinine Clearance* 37.41; Estimated Glomerular Filt Rate 41 ml/min; Glucose* 155 mg/dL (60-115)
[2024-10-29 06:51] LABS: Lymphocytes Absolute Auto 1.40 K/uL (0.90-2.90); Slide Review Reflex No
[2024-10-29] MEDS: OMEPRAZOLE 20 MG CAPSULE DR PO (07:08)
--- NOTE | 2024-10-29 07:35 | PC.NURSE ---
End of shift report [id number]: When ambulating pt?from the chair to bed pt had a decrease in BP going from 105/54 before ambulation and 94/50 after pt remained asymptomatic, MD Park notified, no new orders. Afebrile. On RA. Denies nausea. Rates pain from a 5-3/10, pain meds offered and given with relief. Pt stated he was having some stomach upset, tums offered and given. Piece Dyeing Machine Tender encouraged ice and pt was noted to utilize it for a short period of time. Pt ambulates 2 assist, ASHUTOSH W. Bed alarm on, call light within reach.?
[2024-10-29] MEDS: 0.9 % SODIUM CHLORIDE 500 ML 500 ML IV (07:49)
--- NOTE | 2024-10-29 08:26 | CRLHL7_ITS ---
For Patients: As a result of the Cures Act, medical imaging exams and procedure reports are released immediately into your electronic medical record. You may view this report before your referring provider. If you have questions, please contact your health care provider. INDICATION: Chest pain. TECHNIQUE: AP portable semi upright chest x-ray. COMPARISON: October 27, 2024. FINDINGS: Mildly shallow inspiratory effort. No pneumothorax. Normal heart size and pulmonary vascularity. Degenerative change of the shoulders/AC joints. IMPRESSION: No acute cardiopulmonary process identified. No significant change. Dictated by Sabas Huggins MD @ 10/29/2024 9:00:18 AM (Electronically Signed)
[2024-10-29] MEDS: RIVAROXABAN 10 MG TABLET PO (09:04)
[2024-10-29] MEDS: SENNOSIDES 1 TAB TABLET 2 TAB PO ×2 (09:04→19:46)
--- NOTE | 2024-10-29 09:55 | PM.ORPN ---
Subjective Subjective Time Seen by Provider: 09:15 Date Seen: 10/29/24 Principal diagnosis: Day 1 s/p left hip fracture ORIF Interval history: Ford (goes by 'Eben') is resting comfortably in his recliner. He c/o chest pain, SOB and dizziness. Chest pain began last night and comes and goes and improves with belching. His SOB worsens with transfers and ambulation. He also seems short of breath conversing with me this morning. Denies fever, chills, numbness/tingling distally and nausea and vomiting. Denies postop bowel movement, but admits to flatulence. Pain is well managed with acetaminophen and oxycodone PRN. Patient lives with his , who recently sustained a wrist fracture that will require surgical intervention. Eben explains she is seeing [facility] in [place]. She will be unable to care for Eben. Eben requesting I contact his son, Jose Cruz, to update him this morning. Jose Cruz is currently traveling in [facility] and his service is spotty. Ortho Exam Narrative Exam Narrative: Incision/Dressing: Mepilex dressing x [address] The distal dressing has 3cm area of drainage noted. This has been outlined. Nursing staff will notify our clinic if this increases. Moderate swelling. No obvious erythema, fluctuance or excessive warmth. No ecchymosis or erythematous streaking. Warmth around the wound is appropriate. Ice is being utilized as needed. CMS: Intact distally with 2+ Dorsalis pedis and Posterior Tibial pulses. 5/5 motor strength dorsal and plantar flexion. Confirmed sensation distally. Calf: Bilateral calves are supple, with no swelling, pain, tenderness, erythema, discoloration or coolness to the touch. Constitutional: Patient is alert and oriented x3. Patient is short of breath during our conversation. Patient is pleasant and cooperative. Affect is full range and appropriate for the circumstances. Const Vital Signs, click to edit/add: Vital Signs - 24 hr 10/28/24 10:44 10/28/24 10:50 10/28/24 10:54 Temperature 97.4 F L Pulse Rate 70 63 59 L Pulse Rate [Pulse Oximeter] Respiratory Rate 24 12 12 Blood Pressure 99/54 L 104/57 L 109/59 L Blood Pressure [Right Arm] Pulse Oximetry 95 95 95 Oxygen Delivery Method Aerosol Mask Oxygen Flow Rate 6 10/28/24 11:00 10/28/24 11:05 10/28/24 11:10 Temperature Pulse Rate 58 L 57 L 56 L Pulse Rate [Pulse Oximeter] Respiratory Rate 12 12 12 Blood Pressure 117/58 L 112/61 115/62 Blood Pressure [Right Arm] Pulse Oximetry 94 92 96 Oxygen Delivery Method Room Air Aerosol Mask Oxygen Flow Rate 4 10/28/24 11:15 10/28/24 11:19 10/28/24 11:35 Temperature 97.0 F L Pulse Rate 56 L 59 L Pulse Rate [Pulse Oximeter] 60 Respiratory Rate 12 13 16 Blood Pressure 118/60 115/59 L Blood Pressure [Right Arm] 135/68 Pulse Oximetry 91 92 90 Oxygen Delivery Method Room Air Room Air Room Air Oxygen Flow Rate 10/28/24 11:45 10/28/24 12:00 10/28/24 12:15 Temperature 97.2 F L Pulse Rate Pulse Rate [Pulse Oximeter] 65 58 L 68 Respiratory Rate 16 22 16 Blood Pressure Blood Pressure [Right Arm] 152/80 H 145/67 H 134/89 Pulse Oximetry 90 94 91 Oxygen Delivery Method Room Air Room Air Room Air Oxygen Flow Rate 10/28/24 12:30 10/28/24 13:00 10/28/24 13:30 Temperature Pulse Rate Pulse Rate [Pulse Oximeter] 66 63 70 Respiratory Rate 16 16 18 Blood Pressure Blood Pressure [Right Arm] 121/62 127/58 L 156/61 H Pulse Oximetry 92 96 94 Oxygen Delivery Method Room Air Room Air Room Air Oxygen Flow Rate 10/28/24 14:20 10/28/24 15:00 10/28/24 15:00 Temperature Pulse Rate Pulse Rate [Pulse Oximeter] 67 70 Respiratory Rate 18 18 18 Blood Pressure Blood Pressure [Right Arm] 105/55 L Pulse Oximetry 92 91 Oxygen Delivery Method Room Air Room Air Oxygen Flow Rate 10/28/24 15:30 10/28/24 16:30 10/28/24 17:30 Temperature Pulse Rate Pulse Rate [Pulse Oximeter] 67 68 72 Respiratory Rate 18 18 18 Blood Pressure Blood Pressure [Right Arm] 129/58 L 120/74 131/66 Pulse Oximetry 91 92 91 Oxygen Delivery Method Room Air Room Air Room Air Oxygen Flow Rate 10/28/24 17:50 10/28/24 17:55 10/28/24 19:00 Temperature 97.6 F Pulse Rate Pulse Rate [Pulse Oximeter] 97 86 Respiratory Rate 16 Blood Pressure Blood Pressure [Right Arm] 136/60 100/51 L 120/58 L Pulse Oximetry 94 Oxygen Delivery Method Room Air Oxygen Flow Rate 10/28/24 23:00 10/28/24 23:00 10/28/24 23:00 Temperature 98.1 F Pulse Rate Pulse Rate [Pulse Oximeter] 81 81 Respiratory Rate 16 16 16 Blood Pressure Blood Pressure [Right Arm] 105/54 L Pulse Oximetry 97 97 Oxygen Delivery Method Room Air Room Air Oxygen Flow Rate 10/28/24 23:15 10/29/24 03:00 10/29/24 07:00 Temperature 98.6 F Pulse Rate Pulse Rate [Pulse Oximeter] 70 70 Respiratory Rate 16 20 Blood Pressure Blood Pressure [Right Arm] 94/50 L 133/66 Pulse Oximetry 92 Oxygen Delivery Method Room Air Oxygen Flow Rate 10/29/24 07:00 10/29/24 07:00 Temperature 98.5 F Pulse Rate Pulse Rate [Pulse Oximeter] 83 Respiratory Rate 20 20 Blood Pressure Blood Pressure [Right Arm] 123/60 Pulse Oximetry 93 93 Oxygen Delivery Method Room Air Room Air Oxygen Flow Rate Assessment and Plan Assessment and plan (1) Intertrochanteric fracture of femur: Problem details: - status post fall from standing state, ORIF by Dr. Mcmanus on 10/28/2024. Status: Acute Assessment and Plan: - Regarding Eben's chest pain, this does not appear to be cardiac related. His troponin is negative and his EKG and chest x-ray show no acute findings. Regarding his SOB and dizziness, this is concerning for a pulmonary embolism. Dr. Zendejas and I discussed this concern and Dr. Zendejas will order a CT this morning. - Mepilex dressings will remain x 10 days. Patient will likely be discharged to SNF. The nursing staff at this facility may remove these dressings in approx. 10 days, perform a wound check and notify our Orthopedic clinic with any concerns. - Weight bear as tolerated with walker for assistance. - For pain management, recommend frequent icing, elevation and alternating Tylenol and Oxycodone PRN. ? - For DVT prophylaxis: Xarelto 10 mg daily. Also recommend ankle pumps when sedentary and frequent ambulation. - I anticipate Eben will be discharged to SNF. Discharge timing unknown at this time. Discharge medications will be sent when the SNF location is known. - Patient will follow-up with an Orthopedic PA in 2 weeks for a wound check and clinical evaluation. - Patient will follow-up with Dr. Mcmanus at 6 weeks postoperative. - Per the patient's request, I attempted to contact and update his son, Jose Cruz. There was no answer. I left a voicemail to return my call. Jose Cruz: [phone]. - Notify Orthopedics with any questions or concerns. ([phone])
--- NOTE | 2024-10-29 12:31 | PC.SOCIAL ---
Addendum entered by JORDAN Mejia 10/29/24 16:30: Discharge planning: mud worker faxed a referral to [facility] in [place] at fax number #[phone], as their admissions nurse, Keturah, said they have some male rehab openings coming up and they do review work comp cases. Social work to follow-up as needed. Addendum entered by JORDAN Mejia 10/29/24 14:33: Discharge planning: mud worker has reached out to [facility] and [facility] in [place] to see if they have availability for male short-term rehab beds. Social work to follow-up as needed. Addendum entered by JORDAN Mejia 10/29/24 14:31: Discharge planning: mud worker heard back from Bernice at [facility] that they do not accept any worker's compensation referrals. Social work to follow-up as needed. Addendum entered by JORDAN Mejia 10/29/24 14:23: Discharge planning: mud worker spoke to pt's granddaughter this afternoon who shared that her grandfather(the pt) is willing to go to rehab now and would prefer to go to [facility] or [facility] in [place] in that order. mud worker updated Rosita at [facility] case management and she suggested that this worker let the facility know the referral is a work comp case. mud worker secure emailed pt's referral to Bernice in admissions at [facility]. Social work to follow-up as needed. Addendum entered by JORDAN Mejia 10/29/24 12:38: Discharge planning: Rosita will be coming at 10:30am tomorrow. Social work to follow-up as needed. Original Note: Discharge planning: Received a call from Rosita with [facility] case management(worker's compensation) #[phone], who states she is working on the pt's worker's compensation case and will be coming to the hospital tomorrow 10/30/24 to meet with the pt. Rostia said she did also get a medical update from the pt's nurse that is working today. Social work to follow-up as needed.
--- NOTE | 2024-10-29 12:36 | PM.IMPN1 ---
Assessment and Plan Assessment and plan (1) Intertrochanteric fracture of femur: Problem comment: - status post fall from standing state, ORIF by Dr. Mcmanus on 10/28/2024. Status: Acute (2) Anemia: Problem comment: Hemoglobin January 2023 was 13.5. Hemoglobin 11.7 on admission possibly due to blood loss from hip fracture. Postop day 1 hemoglobin 8.2 due to acute blood loss from hip fracture. Continue to monitor. Status: Acute (3) Venous insufficiency: Problem comment: - chronic, utilizes compression wraps during the day Status: Acute (4) Essential hypertension: Problem comment: Restart home blood pressure medicines as tolerated. Status: Acute (5) BPH (benign prostatic hyperplasia): Problem comment: Monitor bladder scan. Status: Acute (6) Chest pain: Problem comment: History suggests esophageal chest pain. Continue to monitor. Vital signs are relatively normal in stable. EKG is unremarkable. Telemetry is unremarkable. Chest x-ray is unremarkable. Trial PPI. Status: Acute (7) Discharge planning issues: Problem comment: Patient will likely need rehab stay. He is open to this. 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 Ongoing concerns about this. Status: Acute Plan Continue in hospital for postoperative management of pain and therapy. Continue to monitor and manage other medical problems. Total Time Spent Total Time Spent: Total time spent today is 45 minutes in coordination of care and discussing with patient and other providers management of hip fracture, rehab, chest pain. Subjective Date Seen: 10/29/24 Interval history: Ford Coker is a 89 year old man was in his usual health until he tripped over a hose while at work today and fell landing on his left side. Has had left hip pain since. 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 Unfortunately he tripped over a hose while carrying out this responsibility. No other pains. Denies striking his head or having loss of consciousness. In our emergency department he was found to have nondisplaced left femoral neck fracture. Consultation between the emergency department physician and orthopedic surgery physician undertaken and it was recommended that patient be admitted to the hospital for preparation for orthopedic surgery stabilization of the fracture tomorrow morning. Patient reports he has otherwise been doing well recently. He has no other health concerns. No other injuries besides his hip. 10/28/2024: He underwent ORIF. Did well postoperatively. 10/29/2024: Eben reports doing fairly well overnight. He does note that he has a little chest discomfort and he points to his mid sternum where he has had that. He tells me he has had since yesterday. It seems to be resolved with burping or belching. No shortness of breath. He does have a history of some reflux and no history of known coronary disease. Discomfort was present when I saw him around 7:00 a.m. and hand resolved when I saw him around 10 a.m.. Eating without difficulty. He has been a little lightheaded when he stands up and moves. Hemoglobin is dropped to 8.2 today. Exam Narrative: Exam Narrative: He is alert and appears in no distress. Gives his own history. Oriented to his circumstances. Respirations are clear to auscultation. Breathing is unlabored. Cardiovascular: S1, S2, regular rate and rhythm. Abdomen: Bowel sounds active. Abdomen is soft without tenderness or mass. Extremities with intact pulses. Mild edema. Moves feet and ankles well Const: Vital Signs, click to edit/add: Vital Signs - 24 hr 10/28/24 13:00 10/28/24 13:30 10/28/24 14:20 Temperature Pulse Rate [Pulse Oximeter] 63 70 67 Respiratory Rate 16 18 18 Blood Pressure [Ri ght Arm] 127/58 L 156/61 H 105/55 L Pulse Oximetry 96 94 92 Oxygen Delivery Me thod Room Air Room Air Room Air 10/28/24 15:00 10/28/24 15:00 10/28/24 15:30 Temperature Pulse Rate [Pulse Oximeter] 70 67 Respiratory Rate 18 18 18 Blood Pressure [Ri ght Arm] 129/58 L Pulse Oximetry 91 91 Oxygen Delivery Me thod Room Air Room Air 10/28/24 16:30 10/28/24 17:30 10/28/24 17:50 Temperature Pulse Rate [Pulse Oximeter] 68 72 Respiratory Rate 18 18 Blood Pressure [Ri ght Arm] 120/74 131/66 136/60 Pulse Oximetry 92 91 Oxygen Delivery Ms thod Room Air Room Air 10/28/24 17:55 10/28/24 19:00 10/28/24 23:00 Temperature 97.6 F 98.1 F Pulse Rate [Pulse Oximeter] 97 86 81 Respiratory Rate 16 16 Blood Pressure [Ri ght Arm] 100/51 L 120/58 L 105/54 L Pulse Oximetry 94 97 Oxygen Delivery Me thod Room Air Room Air 10/28/24 23:00 10/28/24 23:00 10/28/24 23:15 Temperature Pulse Rate [Pulse Oximeter] 81 Respiratory Rate 16 16 Blood Pressure [Ri ght Arm] 94/50 L Pulse Oximetry 97 Oxygen Delivery Me thod Room Air 10/29/24 03:00 10/29/24 07:00 10/29/24 07:00 Temperature 98.6 F Pulse Rate [Pulse Oximeter] 70 70 Respiratory Rate 16 20 20 Blood Pressure [Ri ght Arm] 133/66 Pulse Oximetry 92 93 Oxygen Delivery Me thod Room Air Room Air 10/29/24 07:00 Temperature 98.5 F Pulse Rate [Pulse Oximeter] 83 Respiratory Rate 20 Blood Pressure [Ri ght Arm] 123/60 Pulse Oximetry 93 Oxygen Delivery Me thod Room Air Documenting provider has reviewed patient's vital signs: yes Labs Labs: Laboratory Results - last 24 hr 10/29/24 05:39 WBC 10.10 RBC 2.82 L Hgb 8.2 L Hct 24.3 L MCV 86 MCH 29 MCHC 34 RDW Coeff of Marita 14.3 Plt Count 105 L Neut % (Auto) 74.0 H Lymph % (Auto) 13.6 L [place] % (Auto) 10.2 Eos % (Auto) 1.4 Baso % (Auto) 0.3 Neut # (Auto) 7.50 H Lymph # (Auto) 1.40 [place] # (Auto) 1.00 H Eos # (Auto) 0.14 Baso # (Auto) 0.03 Abs Immat Gran (auto) 0.05 Imm/Tot Granulo (auto) 0.5 Sodium 131 L Potassium 3.9 Chloride 98 Carbon Dioxide 27 Anion Gap 6 L BUN 37 H Creatinine 1.6 H Estimated Creat Clear 37.41 Estimated GFR 41 Glucose 155 H Calcium 8.1 L Troponin I < 0.01
[2024-10-29] MEDS: SIMETHICONE 80 MG TAB.CHEW 160 MG PO (13:58)
--- NOTE | 2024-10-29 19:37 | PC.NURSE ---
Nursing Care Hours: [id number] Pt this shift calm and cooperative. 500ml bolus given for signs of hypovolemia. BP maintained and stable this shift before and after ambulation. Pt only tolerating short distance walking d/t pain. Making it to the room door than needing to sit for a short break and walking back. Pt unable to heel to toe walk on left leg d/t pain per pt. Full dose oxycodone given and pt tolerated well. Able to walk to wall opposite room before needing to sit for a break. Strong urine odor from pt but pt refused shower. Sponge bath given, gown and linens changed. Jayy wraps to bilat legs applied. Bilat pitting edema present. Epigastric and gas pains treated per emar.
[2024-10-30] VITALS (16 sets, daily range): BP systolic 115–145; BP diastolic 53–81; PULSE 71–93; RESP 16–22; TEMP 36.9–37.6; O2SAT 91–96
[2024-10-30] MEDS: ACETAMINOPHEN 325 MG TABLET 650 MG PO ×4 (01:53→20:53)
[2024-10-30] MEDS: OMEPRAZOLE 20 MG CAPSULE DR PO (05:55)
--- NOTE | 2024-10-30 06:44 | PC.NURSE ---
End of shift report [id number]: VSS. Afebrile rates pain from a 3-4/10 prn pain meds offered and given with relief. Intermittent ice utilized. L hip dressings are dry and intact with a scant amount of dried blood circled on dressing. Pt ambulates 2 A, GB, and W. Pt is up in the chair, chair alarm on, call light within reach.?
[2024-10-30 06:58] LABS: Hematocrit* 23.1 % (37.0-53.0); Immature Granulocytes Pct Auto 0.9 %; Mean Corpuscular HGB Conc 34 gm/dL (32-36); Mean Corpuscular Hemoglobin 29 pg (26-34); Mean Corpuscular Volume 85 fL (80-100); RDW Coefficient of Variation % 14.3 % (11.5-15.5); Red Blood Count* 2.72 m/uL (4.30-5.90); White Blood Count* 12.09 K/uL (4.50-11.00)
[2024-10-30 07:00] LABS: Hemoglobin* 7.9 gm/dL (13.5-17.5); Immature Granulocytes Abs Auto 0.10 K/uL (0.00-0.30); Lymphocytes Absolute Auto 2.20 K/uL (0.90-2.90)
[2024-10-30 07:01] LABS: Slide Review Reflex No
[2024-10-30] MEDS: RIVAROXABAN 10 MG TABLET PO (08:59)
[2024-10-30] MEDS: SENNOSIDES 1 TAB TABLET 2 TAB PO ×2 (08:59→20:53)
--- NOTE | 2024-10-30 09:42 | PC.SOCIAL ---
Addendum entered by JORDAN Mejia 10/30/24 16:34: Discharge planning: Pt has been clinically accepted to [facility] for short-term rehab. [facility] Admission staff and this worker have been trying to get a hold of the medical insurance verifier, Adam Kraft, about payment for the short-term rehab stay and have not been successful. beef cattle farm worker faxed and secure emailed the pt's hospital stay documentation to Adam Kraft earlier today and have not gotten a response from him. beef cattle farm worker plans to reach out to the pt's [employer] case work aide, Rosita Lloyd, to let her know that we are not getting a response from the medical insurance verifier. Social work to follow-up as needed. Addendum entered by JORDAN Mejia 10/30/24 11:00: Discharge planning: Pt's work compensation claim number is [id number]. The work comp carton forming machine adjuster's information is as follows: Adam Kraft Phone number: [phone] Fax number: [phone] Email: [email or web address] beef cattle farm worker will give this information to [facility] [employer] as well. Social work to follow-up as needed. Original Note: Discharge planning: beef cattle farm worker received a message from pt's son, Jose Cruz, asking for a call back in regards to discharge planning for the pt. beef cattle farm worker called Jose Cruz back this morning and left a message at phone number #[phone]. Social work to follow-up as needed.
--- NOTE | 2024-10-30 11:28 | PM.ORPN ---
Subjective Subjective Time Seen by Provider: 11:28 Date Seen: 10/30/24 Principal diagnosis: Day 2 s/p left hip fracture ORIF Interval history: Ford is conversive this morning. He states that ambulating has been quite painful left lower extremity. A retirement facility is the plan for discharge, upon work comp approval Ortho Exam Narrative Exam Narrative: Alert and oriented x3. Patient is in no acute distress. Converses without labored breathing. Hearing is grossly intact. Ambulates with a walker and assist. Examination of the left hip shows the dressing has a large area of blood saturation. Dressing is changed. Wound shows no erythema or drainage currently or sign of infection. No dehiscence. The wound is not gapping. A new waterproof dressing is applied. CMS intact left lower extremity. Very large swollen thigh. Calves are soft and nontender. Const Vital Signs, click to edit/add: Vital Signs - 24 hr 10/29/24 15:00 10/29/24 15:00 10/29/24 15:00 Temperature Pulse Rate Pulse Rate [Pulse Oximeter] 96 83 Respiratory Rate 20 20 28 H Blood Pressure [Left Arm] 124/50 L Pulse Oximetry 94 92 Oxygen Delivery Method Room Air Room Air 10/29/24 15:00 10/29/24 19:00 10/29/24 21:24 Temperature 98.1 F Pulse Rate 77 Pulse Rate [Pulse Oximeter] 85 85 Respiratory Rate 18 18 Blood Pressure [Left Arm] 130/57 L Pulse Oximetry 93 Oxygen Delivery Method Room Air 10/29/24 23:00 10/29/24 23:00 10/29/24 23:00 Temperature 97.9 F Pulse Rate 78 Pulse Rate [Pulse Oximeter] 85 Respiratory Rate 22 22 Blood Pressure [Left Arm] 127/57 L Pulse Oximetry 94 94 Oxygen Delivery Method Room Air Room Air 10/30/24 02:10 10/30/24 09:00 Temperature 98.9 F 98.6 F Pulse Rate Pulse Rate [Pulse Oximeter] 84 93 Respiratory Rate 20 18 Blood Pressure [Left Arm] 129/55 L 144/60 H Pulse Oximetry 91 96 Oxygen Delivery Method Room Air Room Air Documenting provider has reviewed patient's vital signs: yes Assessment and Plan Assessment and plan (1) History of open reduction and internal fixation (ORIF) procedure: Problem details: Left hip fracture ORIF (10/28/2024, Dr. Mcmanus) Status: Acute Assessment and Plan: Ford will be getting blood today. Hemoglobin 7.9. Plan for discharge is to a retirement facility upon approval of work comp. Weightbear as tolerated left lower extremity. Xarelto for DVT prophylaxis Continue PT and OT. Physical therapy at retirement facility See Dr. Mcmanus in 4-6 weeks. No need to see physician surgical physician assistant at 2 weeks due to him residing at a retirement facility. Remove dressing in 2 weeks. Change the dressing if needed Is discussed with Ford that his pain with weight-bearing will likely improve in a day or so, however pain will continue for several weeks.
[2024-10-30] MEDS: FUROSEMIDE 10 MG/ML inj 20 MG IVP (11:52)
[2024-10-30] MEDS: 0.9 % SODIUM CHLORIDE 500 ML 250 ML IV (11:52)
--- NOTE | 2024-10-30 13:53 | P.IMPN_ITS ---
Assessment and Plan Assessment and plan (1) Intertrochanteric fracture of femur: Problem comment: - status post fall from standing height. ORIF by Dr. Mcmanus on 10/28/2024. No complications. Status: Acute (2) History of open reduction and internal fixation (ORIF) procedure: Problem comment: Left hip fracture ORIF (10/28/2024, Dr. Mcmanus) Status: Acute (3) Chest pain: Problem comment: History suggests esophageal chest pain. Continue to monitor. Vital signs are relatively normal in stable. EKG is unremarkable. Telemetry is unremarkable. Chest x-ray is unremarkable. Trial PPI. No further episodes of chest pain Status: Acute (4) Anemia: Problem comment: Hemoglobin January 2023 was 13.5. Hemoglobin 11.7 on admission possibly due to blood loss from hip fracture. Postop day 1 hemoglobin 8.2 due to acute blood loss from hip fracture. Day 2 hemoglobin 7.9 with relative low blood pressure and significant weight gain from fluid resuscitation. Transfuse 1 unit with furosemide Status: Acute (5) Essential hypertension: Problem comment: Restart home blood pressure medicines as tolerated. Status: Acute (6) BPH (benign prostatic hyperplasia): Problem comment: Monitor bladder scan. Status: Acute (7) Discharge planning issues: Problem comment: Patient will likely need rehab stay. He is open to this. Some difficulty related to work Comp insurance coverage. 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 Ongoing concerns about this. Status: Acute Plan Continue in-hospital for management of acute blood loss anemia, rehab pending placement for ongoing rehabilitation. Total Time Spent Total Time Spent: Total time spent today is 40 minutes in coordination of care and discussing with patient and other providers ongoing management of blood-loss anemia, rehab, placement Subjective Date Seen: 10/30/24 Interval history: Interval history: Ford Coker is a 89 year old man was in his usual health until he tripped over a hose while at work today and fell landing on his left side. Has had left hip pain since. 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 Unfortunately he tripped over a hose while carrying out this responsibility. No other pains. Denies striking his head or having loss of consciousness. In our emergency department he was found to have nondisplaced left femoral neck fracture. Consultation between the emergency department physician and orthopedic surgery physician undertaken and it was recommended that patient be admitted to the hospital for preparation for orthopedic surgery stabilization of the fracture tomorrow morning. Patient reports he has otherwise been doing well recently. He has no other health concerns. No other injuries besides his hip. 10/28/2024: He underwent ORIF. Did well postoperatively. 10/29/2024: Eben reports doing fairly well overnight. He does note that he has a little chest discomfort and he points to his mid sternum where he has had that. He tells me he has had since yesterday. It seems to be resolved with burping or belching. No shortness of breath. He does have a history of some reflux and no history of known coronary disease. Discomfort was present when I saw him around 7:00 a.m. and hand resolved when I saw him around 10 a.m.. Eating without difficulty. He has been a little lightheaded when he stands up and moves. Hemoglobin is dropped to 8.2 today. 10/30/2024: He reports doing fairly well today. He has no concerns. Blood pressure has been relatively low despite holding blood pressure medication. Hemoglobin dropped to 7.9. Weight is up about 6 kg due to fluid resuscitation. No shortness of breath. Appetite is good. Exam Narrative: Exam Narrative: He is alert and appears in no distress. Speech is normal. Respirations are clear to auscultation. Cardiovascular: S1, S2, regular rate and rhythm. Abdomen is soft without tenderness or mass. Extremities with 1+ edema. He moves all 4 extremities well. Const: Vital Signs, click to edit/add: Vital Signs - 24 hr 10/29/24 15:10/29/24 15:10/29/24 15:00 Temperature Pulse Rate Pulse Rate [Pulse Oximeter] 96 83 Respiratory Rate 20 20 28 H Blood Pressure Blood Pressure [Le ft Arm] 124/50 L Pulse Oximetry 94 92 Oxygen Delivery Me thod Room Air Room Air 10/29/24 15:10/29/24 19:00 10/29/24 21:24 Temperature 98.1 F Pulse Rate 77 Pulse Rate [Pulse Oximeter] 85 85 Respiratory Rate 18 18 Blood Pressure Blood Pressure [Le ft Arm] 130/57 L Pulse Oximetry 93 Oxygen Delivery Me thod Room Air 10/29/24 23:00 10/29/24 23:00 10/29/24 23:00 Temperature 97.9 F Pulse Rate 78 Pulse Rate [Pulse Oximeter] 85 Respiratory Rate 22 22 Blood Pressure Blood Pressure [Le ft Arm] 127/57 L Pulse Oximetry 94 94 Oxygen Delivery Me thod Room Air Room Air 10/30/24 02:10 10/30/24 07:00 10/30/24 07:00 Temperature 98.9 F Pulse Rate Pulse Rate [Pulse Oximeter] 84 93 Respiratory Rate 20 18 18 Blood Pressure Blood Pressure [Le ft Arm] 129/55 L Pulse Oximetry 91 92 Oxygen Delivery Me thod Room Air Room Air 10/30/24 09:00 10/30/24 11:55 10/30/24 11:55 Temperature 98.6 F 99.2 F 99.2 F Pulse Rate 86 Pulse Rate [Pulse Oximeter] 93 93 Respiratory Rate 18 18 18 Blood Pressure 143/71 H Blood Pressure [Le ft Arm] 144/60 H 143/71 H Pulse Oximetry 96 92 92 Oxygen Delivery Me thod Room Air Room Air Room Air 10/30/24 12:14 10/30/24 12:44 10/30/24 13:13 Temperature 98.5 F 98.9 F 99.3 F Pulse Rate 87 84 87 Pulse Rate [Pulse Oximeter] Respiratory Rate 18 18 22 Blood Pressure 129/58 L 127/65 135/81 Blood Pressure [Le ft Arm] Pulse Oximetry 94 96 94 Oxygen Delivery Me thod Room Air Room Air Room Air Documenting provider has reviewed patient's vital signs: yes Labs Labs: Laboratory Results - last 24 hr 10/30/24 10/30/24 05:39 06:28 WBC 12.09 H RBC 2.72 L Hgb 7.9 L* Hct 23.1 L MCV 85 MCH 29 MCHC 34 RDW Coeff of Marita 14.3 Plt Count 113 L Neut % (Auto) 67.4 Lymph % (Auto) 18.4 L Campbell % (Auto) 9.8 Eos % (Auto) 3.2 Baso % (Auto) 0.3 Neut # (Auto) 8.10 H Lymph # (Auto) 2.20 Campbell # (Auto) 1.20 H Eos # (Auto) 0.40 Baso # (Auto) 0.00 Abs Immat Gran (auto) 0.10 Imm/Tot Granulo (auto) 0.9 Blood Type A Positive Antibody Screen NEGATIVE Crossmatch (AHG) See Detail
--- NOTE | 2024-10-30 18:52 | PC.NURSE ---
End of Shift: Patient pleasant and cooperative, A&O. VSS, afebrile. SpO2 maintained above 90% on RA. Blood transfusion complete this shift with no reactions noted. 1A with walker and gait belt. ?
[2024-10-31] MEDS: ACETAMINOPHEN 325 MG TABLET 650 MG PO ×2 (01:56→09:09)
[2024-10-31 02:12] VITALS: BP 145/67; PULSE 88; RESP 20; TEMP 37.2; O2SAT 96
[2024-10-31 06:44] LABS: Hematocrit* 23.2 % (37.0-53.0); Immature Granulocytes Abs Auto 0.11 K/uL (0.00-0.30); Immature Granulocytes Pct Auto 1.2 %; Mean Corpuscular HGB Conc 34 gm/dL (32-36); Mean Corpuscular Hemoglobin 29 pg (26-34); Mean Corpuscular Volume 85 fL (80-100); RDW Coefficient of Variation % 14.4 % (11.5-15.5); Red Blood Count* 2.72 m/uL (4.30-5.90); White Blood Count* 9.33 K/uL (4.50-11.00)
[2024-10-31 06:48] LABS: Hemoglobin* 7.9 gm/dL (13.5-17.5); Lymphocytes Absolute Auto 1.70 K/uL (0.90-2.90); Slide Review Reflex No
[2024-10-31] MEDS: OMEPRAZOLE 20 MG CAPSULE DR PO (07:06)
[2024-10-31 07:10] VITALS: PULSE 81
[2024-10-31 07:12] LABS: Chloride* 100 mmol/L (96-114); Potassium* 3.9 mmol/L (3.6-5.1); Sodium* 131 mmol/L (135-149)
[2024-10-31 07:15] LABS: Blood Urea Nitrogen* 41 mg/dL (7-30); Creatinine* 1.5 mg/dL (0.5-1.5); Est. Creatinine Clearance* 39.90; Estimated Glomerular Filt Rate 44 ml/min
[2024-10-31 07:16] LABS: Anion Gap 6 mEq/L (7-15); Calcium* 8.0 mg/dL (8.4-10.6); Carbon Dioxide* 25 mmol/L (20-32); Glucose* 129 mg/dL (60-115)
--- NOTE | 2024-10-31 08:18 | PM.ORPN ---
Subjective Subjective Time Seen by Provider: 08:00 Date Seen: 10/31/24 Principal diagnosis: Day 2 s/p left hip fracture ORIF Interval history: Ford (goes by 'Eben') is resting comfortably in his recliner. He reports he slept well last night. C/o 3 out of 10 left hip pain that is well managed with rest, ice, acetaminophen and oxycodone PRN. Denies chest pain, SOB and dizziness. Eben explains his granddaughter and will be visiting this morning around 12pm. Eben lives with his , who recently sustained a wrist fracture that will require surgical intervention. I also spoke with Eben's son Jose Cruz on Sunday (10/29) to provide an update. Most of Jose Cruz's questions related to discharge planning. I requested he contacted Electronic Sales And Service Technician to discuss this further. Ortho Exam Narrative Exam Narrative: Incision/Dressing: Mepilex dressing x [address] Moderate swelling. No obvious erythema, fluctuance or excessive warmth. No ecchymosis or erythematous streaking. Warmth around the wound is appropriate. Ice is being utilized as needed. CMS: Intact distally with 2+ Dorsalis pedis and Posterior Tibial pulses. 5/5 motor strength dorsal and plantar flexion. Confirmed sensation distally. Calf: Bilateral calves are supple, with no swelling, pain, tenderness, erythema, discoloration or coolness to the touch. Constitutional: Patient is alert and oriented x3. Patient is pleasant and cooperative. Affect is full range and appropriate for the circumstances. Const Vital Signs, click to edit/add: Vital Signs - 24 hr 10/30/24 09:00 10/30/24 11:55 10/30/24 11:55 Temperature 98.6 F 99.2 F 99.2 F Pulse Rate 86 Pulse Rate [Pulse Oximeter] 93 93 Respiratory Rate 18 18 18 Blood Pressure 143/71 H Blood Pressure [Left Arm] 144/60 H 143/71 H Pulse Oximetry 96 92 92 Oxygen Delivery Method Room Air Room Air Room Air 10/30/24 12:14 10/30/24 12:44 10/30/24 13:13 Temperature 98.5 F 98.9 F 99.3 F Pulse Rate 87 84 87 Pulse Rate [Pulse Oximeter] Respiratory Rate 18 18 22 Blood Pressure 129/58 L 127/65 135/81 Blood Pressure [Left Arm] Pulse Oximetry 94 96 94 Oxygen Delivery Method Room Air Room Air Room Air 10/30/24 13:44 10/30/24 14:14 10/30/24 14:32 Temperature 99.4 F 99.3 F 99.1 F Pulse Rate 84 86 81 Pulse Rate [Pulse Oximeter] Respiratory Rate 18 18 18 Blood Pressure 123/59 L 127/56 L 115/67 Blood Pressure [Left Arm] Pulse Oximetry 95 92 94 Oxygen Delivery Method Room Air Room Air Room Air 10/30/24 15:00 10/30/24 15:00 10/30/24 15:00 Temperature 98.9 F Pulse Rate Pulse Rate [Pulse Oximeter] 80 71 Respiratory Rate 18 16 16 Blood Pressure Blood Pressure [Left Arm] 130/53 L Pulse Oximetry 94 95 Oxygen Delivery Method Room Air Room Air 10/30/24 15:00 10/30/24 15:02 10/30/24 15:32 Temperature 99.4 F 98.9 F Pulse Rate 82 87 80 Pulse Rate [Pulse Oximeter] Respiratory Rate 18 16 Blood Pressure 127/70 130/53 L Blood Pressure [Left Arm] Pulse Oximetry 92 95 Oxygen Delivery Method Room Air Room Air 10/30/24 19:00 10/30/24 22:54 10/30/24 23:00 Temperature 99.6 F 99 F Pulse Rate Pulse Rate [Pulse Oximeter] 92 76 76 Respiratory Rate 18 18 18 Blood Pressure Blood Pressure [Left Arm] 145/62 H 125/57 L Pulse Oximetry 93 93 Oxygen Delivery Method Room Air Room Air 10/30/24 23:00 10/30/24 23:00 10/31/24 02:12 Temperature 99 F Pulse Rate 88 Pulse Rate [Pulse Oximeter] 88 Respiratory Rate 18 20 Blood Pressure Blood Pressure [Left Arm] 145/67 H Pulse Oximetry 93 96 Oxygen Delivery Method Room Air Room Air Assessment and Plan Assessment and plan (1) History of open reduction and internal fixation (ORIF) procedure: Problem details: Left hip fracture ORIF (10/28/2024, Dr. Mcmanus) Status: Acute Assessment and Plan: - Mepilex dressings will remain x 10-14 days. - Discharge timing remains unknown. Tentative plan is to be discharged to [facility], however this is pending work comp approval. The nursing staff at [facility] will remove these dressings in approx. 10-14 days, perform a wound check and notify our Orthopedic clinic with any concerns. - Weight bear as tolerated with walker for assistance. - For pain management, recommend frequent icing, elevation and alternating Tylenol and Oxycodone PRN. ? - For DVT prophylaxis: Xarelto 10 mg daily. Also recommend ankle pumps when sedentary and frequent ambulation. - Patient will follow-up with an Orthopedic PA in 2 weeks for a wound check and clinical evaluation. - Patient will follow-up with Dr. Mcmanus at 6 weeks postoperative. - Notify Orthopedics with any questions or concerns. ([phone])
[2024-10-31 09:02] VITALS: BP 126/52; PULSE 78; RESP 20; RESP 22; TEMP 36.7; O2SAT 93; O2SAT 95
[2024-10-31] MEDS: SENNOSIDES 1 TAB TABLET 2 TAB PO (09:09)
[2024-10-31] MEDS: RIVAROXABAN 10 MG TABLET PO (09:09)
[2024-10-31] MEDS: POTASSIUM CHLORIDE 10 MEQ CAPSULE ER 20 MEQ PO (10:26)
[2024-10-31] MEDS: FUROSEMIDE 10 MG/ML inj 20 MG IVP (10:26)
[2024-10-31 11:44] VITALS: BP 147/62; PULSE 78; RESP 22; TEMP 36.6; O2SAT 95
--- NOTE | 2024-10-31 12:23 | P.DS_ITS ---
DS: Providers Provider Date Seen: 10/31/24 Date of admission: 10/27/24 17:29 Primary care physician: Not a Local Provider Admitting Clinician: Hossein Gonzales MD Attending Physician on discharge: Antelmo Zendejas MD Date of Discharge: 10/31/24 DS: Diagnosis Discharge Diagnosis (1) History of open reduction and internal fixation (ORIF) procedure: Status: Acute Problem details: Left hip fracture ORIF (10/28/2024, Dr. Mcmanus) (2) Intertrochanteric fracture of femur: Status: Acute Problem details: - status post fall from standing height. ORIF by Dr. Mcmanus on 10/28/2024. No complications. (3) Chest pain: Status: Acute Problem details: Patient had episode of chest pain early in hospital stay. Evaluation showed no acute coronary syndrome. Suspected to be due to reflux. Resolved without recurrence. (4) BPH (benign prostatic hyperplasia): Status: Acute Problem details: Monitor bladder scan as needed (5) Essential hypertension: Status: Acute Problem details: Restart home blood pressure medicines as tolerated. Due to low blood pressure from blood-loss anemia blood pressure medicines were held until the day of discharge. Doxazosin was switched to Flomax. (6) Venous insufficiency: Status: Acute Problem details: - chronic, utilizes compression wraps during the day. Behzad stockings. (7) Anemia: Status: Acute Problem details: Hemoglobin January 2023 was 13.5. Hemoglobin 11.7 on admission possibly due to blood loss from hip fracture. Postop day 1 hemoglobin 8.2 due to acute blood loss from hip fracture. Day 2 hemoglobin 7.9 with relative low blood pressure a nd significant weight gain from fluid resuscitation. Transfuse 1 unit with furosemide. Hemoglobin stable at 7.9 on discharge. Recheck next week. DS: Summary Hospital Course Hospital Course: Fodr Coker is a 89 year old man was in his usual health until he tripped over a hose while at work today and fell landing on his left side. Has had left hip pain since. 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 Unfortunately he tripped over a hose while carrying out this responsibility. No other pains. Denies striking his head or having loss of consciousness. In our emergency department he was found to have nondisplaced left femoral neck fracture. Consultation between the emergency department physician and o rthopedic surgery physician undertaken and it was recommended that patient be admitted to the hospital for preparation for orthopedic surgery stabilization of the fracture tomorrow morning. Patient reports he has otherwise been doing well recently. He has no other health concerns. No other injuries besides his hip. Hospital course: Patient did well after surgery. He did have some lightheadedn ess and low blood pressure which was thought due to blood loss from his fracture. Additional evidence for that came with a hemoglobin that dropped to 7.9 and marked swelling and bruising of his left thigh. Blood pressure medicines were held and he did well. He received 1 unit of blood transfusion. Hemoglobin 7.9 on discharge. Status at Discharge Functional status at discharge: uses cane/walker Overall status at discharge: patient is progressing back to baseline Time Spent with Patient Time attestation: Total time spent providing and/or coordinating discharge services: 45 minutes Time spent: Greater than 30 minutes Exam Narrative: Exam Narrative: He is alert in no distress. Breathing is unlabored. Respirations are clear to auscultation. Cardiovascular: S1, S2, regular rate and rhythm. 1/6 systolic murmur. Abdomen is soft without tenderness. Lower extremities notable for marked swelling and bruising of the left thigh. Distally has intact pulses and sensation. Mild lower extremity edema. Const: Vital Signs, click to edit/add: Vital Signs - 24 hr 10/30/24 12:44 10/30/24 13:13 10/30/24 13:44 Temperature 98.9 F 99.3 F 99.4 F Pulse Rate 84 87 84 Pulse Rate [Pulse Oximeter] Respiratory Rate 18 22 18 Blood Pressure 127/65 135/81 123/59 L Blood Pressure [Le ft Arm] Pulse Oximetry 96 94 95 Oxygen Delivery Me thod Room Air Room Air Room Air 10/30/24 14:14 10/30/24 14:32 10/30/24 15:00 Temperature 99.3 F 99.1 F Pulse Rate 86 81 Pulse Rate [Pulse Oximeter] Respiratory Rate 18 18 18 Blood Pressure 127/56 L 115/67 Blood Pressure [Le ft Arm] Pulse Oximetry 92 94 94 Oxygen Delivery Me thod Room Air Room Air Room Air 10/30/24 15:00 10/30/24 15:00 10/30/24 15:00 Temperature 98.9 F Pulse Rate 82 Pulse Rate [Pulse Oximeter] 80 71 Respiratory Rate 16 16 Blood Pressure Blood Pressure [Le ft Arm] 130/53 L Pulse Oximetry 95 Oxygen Delivery Me thod Room Air 10/30/24 15:02 10/30/24 15:32 10/30/24 19:00 Temperature 99.4 F 98.9 F 99.6 F Pulse Rate 87 80 Pulse Rate [Pulse Oximeter] 92 Respiratory Rate 18 16 18 Blood Pressure 127/70 130/53 L Blood Pressure [Le ft Arm] 145/62 H Pulse Oximetry 92 95 93 Oxygen Delivery Me thod Room Air Room Air Room Air 10/30/24 22:54 10/30/24 23:00 10/30/24 23:00 Temperature 99 F Pulse Rate Pulse Rate [Pulse Oximeter] 76 76 Respiratory Rate 18 18 18 Blood Pressure Blood Pressure [Le ft Arm] 125/57 L Pulse Oximetry 93 93 Oxygen Delivery Me thod Room Air Room Air 10/30/24 23:00 10/31/24 02:12 10/31/24 09:02 Temperature 99 F 98.1 F Pulse Rate 88 Pulse Rate [Pulse Oximeter] 88 78 Respiratory Rate 20 20 Blood Pressure Blood Pressure [Le ft Arm] 145/67 H 126/52 L Pulse Oximetry 96 93 Oxygen Delivery Me thod Room Air Room Air 10/31/24 11:44 Temperature 97.8 F Pulse Rate Pulse Rate [Pulse Oximeter] 78 Respiratory Rate 22 Blood Pressure Blood Pressure [Le ft Arm] 147/62 H Pulse Oximetry 95 Oxygen Delivery Me thod Room Air Documenting provider has reviewed patient's vital signs: yes DS: Data Data Completed and Pending Labs on day of discharge: Labs from last 24 hours 10/31/24 10/30/24 06:04 05:39 WBC 9.33 RBC 2.72 L Hgb 7.9 L* Hct 23.2 L MCV 85 MCH 29 MCHC 34 RDW Coeff of Marita 14.4 Plt Count 136 L Neut % (Auto) 64.4 Lymph % (Auto) 18.5 L [place] % (Auto) 12.4 H Eos % (Auto) 3.1 Baso % (Auto) 0.4 Neut # (Auto) 6.00 Lymph # (Auto) 1.70 [place] # (Auto) 1.20 H Eos # (Auto) 0.29 Baso # (Auto) 0.04 Abs Immat Gran (auto) 0.11 Imm/Tot Granulo (auto) 1.2 Sodium 131 L Potassium 3.9 Chloride 100 Carbon Dioxide 25 Anion Gap 6 L BUN 41 H Creatinine 1.5 Estimated Creat Clear 39.90 Estimated GFR 44 Glucose 129 H Calcium 8.0 L Crossmatch (AHG) See Detail Discharge Plan Discharge Disposition: [facility] Date of Admission: 10/27/24 17:29 Attending Provider on Discharge: Jose Zendejas Consulting Providers: Jovita Zapien; Zulma Park; Marcus Juarez; Vinicio Tovar; Marcos Robertson; Rg Taylor; Jackie Kimble; Keturah Juarez; Adeline Ba; Hossein Gonzales; Matilda Cameron; Favio Elizabeth; Jose Zendejas; Nando Molina; Ciro Stoddard; Last Herbert; Arlet Moreland; Natanael Acosta; Stacia Guevara; Lyndsay Fallon; Kate Prieto; Berenice Moran; Payton Lopez; Vanessa Han; Ana Paula Dougherty; Lenka Dougherty; Shawn Stoll; Alberto Espino; Evan Calvillo; Puja Cedeno; Brooklynn Anderson; Stanley Greene Primary Care Provider: Provider,Not a Local Condition: Stable Anticipated Discharge Date/Time: 10/31/24 12:00 Discharge Medications: New tamsulosin 0.4 mg capsule 0.4 mg PO QHS Qty: 30 2RF oxycodone 5 mg tablet 5 mg PO Q4H PRN (Reason: pain) Qty: 30 0RF sennosides [Senna Lax] 8.6 mg tablet 8.6 mg PO BID Qty: 10 0RF Xarelto 10 mg tablet 10 mg PO DAILY Qty: 10 0RF Rx Instructions: for 35 days aspirin 81 mg tablet 81 mg PO BID Qty: 60 0RF Rx Instructions: Start aspirin 81 mg twice daily after the last dose of Xarelto, in 10 days Continued pravastatin 20 mg tablet 20 mg PO HS hydrochlorothiazide 25 mg tablet 25 mg PO DAILY latanoprost 0.005 % drops 1 drp ophthalmic (eye) QPM Patient Comments: BOTH EYES omeprazole 20 mg capsule,delayed release(DR/EC) 20 mg PO DAILY timolol maleate 0.5 % drops 1 drp ophthalmic (eye-left) QAM Discontinued doxazosin 4 mg tablet 4 mg PO HS Discharge Orders: Discharge Order (Routine); Ordered 10/31/24 Ordered By: Jose Zendejas Consulting provider completed their portion of the discharge: Yes Additional Instructions: Please make postoperative appointment with Dr. Mcmanus in 4-6 weeks [facility] [place]. Activity Level: Weight Bearing as Tolerated and Use Walker Activity Detail: Keep dressing on for 2 weeks. Dressing is waterproof. May shower. Attend physical therapy at long-term [facility]. Ice and elevate operative extremity without restriction. Swelling and bruising will worsen within the first week. When swelling occurs, elevate the extremity above heart level several times a day and gently massage/pull soft tissue swelling toward hip. This allows gravity to assist in eliminating the swelling/edema. Wear compression stockings/divina bandages as needed for swelling. Ambulate frequently throughout the day. If you drive, Do not drive while taking narcotic pain medication. Do not drink alcohol while taking narcotic pain medication. May drive when safe to do so and have full function of the extremities, this may take 6 weeks or more. Notify Orthopedics with any questions or concerns. ([phone]) Weightbear as tolerated left lower extremity. Discharge Diet: Regular Follow Up Appointments: Provider,Not a Local [Primary Care Provider, Family Practice] [facility]F Length of Stay: <30 days Can use facility standing orders?: Yes Code Status: DNR/DNI TEDs: Bilateral Knee Rehab Potential: Good Therapy: Physical Therapy and Occupational Therapy Therapy Orders: Evaluate and Treat Oxygen: No Lab Orders: Check hemoglobin in 4-6 days
--- NOTE | 2024-10-31 12:44 | PC.NURSE ---
Nurse to nurse given to Neeta at [facility].
--- NOTE | 2024-10-31 14:40 | PC.NURSE ---
Discharge: Patient pleasant and cooperative, alert and oriented. Patient vitally stable, lungs clear but also had some expiratory wheezes, BS WNL, IV removed catheter intact. Patient rates left hip pain 3-07/10, only scheduled tylenol given, patient declined oxycodone. Left hip dressings x2, C/D/I, active ice used on hip. Patient tolerating regular diet and urinating well using urinal. Patient signed belongings sheet and discharge form, patient had no further questions regarding discharge information. Patient left the floor by wheelchair with family and belongings to [facility] at 1328.
--- NOTE | 2024-10-31 15:57 | PC.SOCIAL ---
Addendum entered by JORDAN Mejia 10/31/24 16:13: Discharge planning: The pt was transported to [facility] by his granddaughter/grandson. Social work to follow-up as needed. Original Note: Discharge planning: Pt discharged to [facility] today for short-term rehab. Discharge orders were secure emailed to Kenisha at [facility]. The pre-admission screening was also completed and secure emailed to Kenisha at [facility]. [id number]. 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 The pt was just a little frustrated with his work comp claim and hopeful that they will cover all the costs of his hospital stay and short-term rehab stay. The pt stated that he received excellent care while in the hospital and was a little sad to leave. Social work to follow-up as needed.
== END 2024-10-31 13:28 | DRG 481 ==
LOC: ED 16:55 → MEDSURG 17:28
PROVIDERS: Family Medicine; Orthopaedic Surgery; Admitting Provider Internal Medicine; Emergency Provider Family Medicine; Visit Provider Internal Medicine
PROC: 0QS706Z Reposition Left Upper Femur with Intramedullary Internal Fixation Device, Open Approach (ICD-10-PCS; CPT 27245; principal; 2024-10-28 08:45)
DX: S72.142A Displaced intertrochanteric fracture of left femur, initial encounter for closed fracture (principal); D62 Acute posthemorrhagic anemia; G89.18 Other acute postprocedural pain; W01.0XXA Fall on same level from slipping, tripping and stumbling without subsequent striking against object, initial encounter; Y93.H3 Activity, building and construction; Y92.9 Unspecified place or not applicable; I87.2 Venous insufficiency (chronic) (peripheral); R07.9 Chest pain, unspecified; R06.02 Shortness of breath; R42 Dizziness and giddiness; I10 Essential (primary) hypertension; N40.0 Benign prostatic hyperplasia without lower urinary tract symptoms; E66.9 Obesity, unspecified; K21.9 Gastro-esophageal reflux disease without esophagitis; E78.5 Hyperlipidemia, unspecified
CPT/HCPCS: 01210; 36415; 36430; 51798; 64450; 71045; 73502; 73552; 76000; 76942; 80048; 80069; 82803; 83036; 83605; 83735; 84443; 84484; 85025; 85027; 86140; 86850; 86900; 86901; 86922; 93005; 94761; 97110; 97116; 97162; 97165; 97530; 97535; 99100; 99284; 99285; A9270; C1713; J0665; J0690; J1938; J2270; J2371; J2704; J2795; J3010; J3490; J7030; J7120; P9016

== ENCOUNTER 2024-12-27 13:25 | Outpatient (CLI) | payer MEDICARE, SELFPAY | END 2024-12-27 13:26 | disposition home or self-care (01) | LOC: AMB 12-30 13:37 | PROVIDERS: PCP Podiatrist Foot & Ankle Surgery; Visit Provider Internal Medicine | DX: R53.1 Weakness (principal) | CPT/HCPCS: A0998 ==

== ENCOUNTER 2024-12-27 14:21 | Inpatient (IN) | payer MEDICARE, SELFPAY ==
--- OUTSIDE RECORDS SUMMARY | 2010-09-28 07:04 | XMS_ITS | Continuity of Care Document ---
Author Organization [facility] Address [address] [address] [place] [address] Phone Care Team Providers Care Database Modeler Name Role Phone Unavailable Unavailable Unavailable Advance Directives Directive Yes / No Effective Date File Name No Information Encounters Encounter Description Practice Location Reason(s) For Visit Diagnoses Date Provider Providers Copied on Encounter [facility], [address] [address], [place], [place], [id number], [place] tel:[phone] [facility] No Information No Information Family History Family Member Type Diagnosis Age At Onset No Information Payers Payer name Insurance type Covered green party ID Authoriza tion(s) Medicare [facility] MB [id number] AARP CI [id number] Social History Type Description Quantity Date Captured Comments Sex Male Smoking Status No Information Chief Complaint And Reason For Visit No Information Reason For Referral Reason For Referral No Information History Of Present Illness Encounter Date Complaint History Of Prese nt Illness No Information Functional Status Date Functional Assessmen t No Information Instructions Date Instruction Additional Infor mation No Information Assessments Type Assessment Date No Information Patient Care Teams Name Effective Dates (start - stop) Status Members No Information
--- OUTSIDE RECORDS SUMMARY | 2010-09-28 07:04 | XMS_ITS | Continuity of Care Document ---
Author Organization [facility] Address [address] [address] [place] [address] Phone Care Team Providers Care Saddle Stitcher Name Role Phone Unavailable Unavailable Unavailable Advance Directives Directive Yes / No Effective Date File Name No Information Encounters Encounter Description Practice Location Reason(s) For Visit Diagnoses Date Provider Providers Copied on Encounter [facility], [address] [address], [place], [place], [id number], [place] tel:[phone] [facility] No Information No Information Family History Family Member Type Diagnosis Age At Onset No Information Payers Payer name Insurance type Covered green party ID Authoriza tion(s) Medicare [facility] MB [id number] AARP CI [id number] Social History Type Description Quantity Date Captured [...]
[2024-12-27] VITALS (33 sets, daily range): BP systolic 104–167; BP diastolic 54–78; PULSE 73–117; RESP 28–44; TEMP 36.1–38; O2SAT 89–96; BMI 33.1; BMI 32.3; BMI 32.4
--- OUTSIDE RECORDS SUMMARY | 2024-12-27 14:24 | XMS_ITS | Clinical Summary ---
Author Organization [facility] Address [address] [place] [id number] Care Team Providers Care Branch Chief Name Role Phone Adair Sharp MD Primary Care Provider [facility] [place] Unavailable Allergies No known active allergies Medications ascorbic [...] cpx-10/08 Last lipid 10/08, LDL-105 Last colonoscopy-09/30 Encounters Date Type Department Care Team Description 12/24/2024 9:00 AM CDT Home Care Visit [address] [address] Ciro Amador, PT PT - REASSESSMENT 12/17/2024 9:30 AM CDT Home Care Visit [address] [address] Ciro Amador, PT PT - HOME VISIT 12/10/2024 9:30 AM CDT Home Care Visit [address] [address] Ciro Amador, PT PT - HOME VISIT 12/03/2024 9:30 AM CDT Home Care Visit [address] [address] Ciro Amador, PT PT - HOME VISIT 12/02/2024 2:55 PM CDT Office Visit [facility] [address] [place] [address] Adair Sharp MD Hospital F/U (Fall and broken hip [facility].) 12/02/2024 Travel 11/28/2024 9:00 AM CDT Home Care Visit [address] [address] Josemanuel Tristan, PT PT - [place] START OF CARE 11/28/2024 Plan of Care Documentation [address] [address] 11/25/2024 Nurse Triage [address] [address] Adair Sharp MD Home Care 11/25/2024 Nurse Triage [address] [address] [facility], [facility] Error-please disregard 11/21/2024 Transcribe Orders [address] [address] Provider, [facility] 11/05/2024 Lab Requisition [facility] [phone] Una Horton NP 10/29/2024 Orders Only [facility] Scanner 1 scan: (1-Ord) 10/29/2024 10/29/2024 Orders Only [facility] Scanner 1 scan: (1-Ord) [facility], CHEST 1V PORTABLE, 10/29/2024 10/28/2024 Orders Only [facility] Scanner 1 scan: (1-Ord) [facility], FEMOR LT 2V, 10/28/2024 10/27/2024 Orders Only [facility] Scanner 1 scan: (1-Ord) 10/27/2024 10/27/2024 Orders Only [facility] Scanner 1 scan: (1-Ord) 10/27/2024 10/27/2024 Orders Only [facility] Scanner 1 scan: (1-Ord) 10/27/2024 10/27/2024 Orders Only [facility] Scanner 1 scan: (1-Ord) [facility], HIP LT MIN 2V, 10/27/2024 10/27/2024 Orders Only [facility] Scanner 1 scan: (1-Ord) [facility], CHEST 1V, 10/27/2024 from Last 3 Months Immunizations Immunization Administration Dates Next Due AMB Influenza, IIV4 PF (=>6 mos Flulaval,Fluzone Fluarix)(Flu Clinic Only) 01/07/2020,01/07/2020 COVID-19 VACCINE (MODERNA 25MCG/0.25ML) 6MO-11YO PFS 12/17/2023 COVID-19 vaccine (Moderna 100mcg/0.5mL) PF, MDV 06/12/2020,06/02/2020,05/15/2020 Influenza A (H1N1), Inactivated 04/14/2009 Influenza A (H1N1), Inactiva trupti (Age >=3 Years) 04/14/2009 Influenza, High-dose Inactivated 12/17/2023,01/01,01/18/2015 Influenza, High-dose Quadriv alent Inactivated 12/22/2022,01/04/2022,01/05/2021 Influenza, IIV3 (Age 6-35 mos) 01/18/2011 Influenza, IIV3 (Age >=3 years) 01/19/20 11,12/21/2008,01/20/2005,01/04,01/28/2003,02/12/2002,02/13/2001 ,02/07/2000,01/22/1998 Influenza, Inactivated IIV3 (Age 65+ Years) Preserv Free 01/16/2019,01/28/2018,12/21/2016 Pneumococcal Conj 20-valent (Prevnar 20) 10/26/2022 Pneumococcal Poly,23-Valent (Pneumovax) 12/10/2002 Pneumococcal conj 13-Valent (Prevnar 13) 01/18/2015 RSV, Recombinant ADJ Reconst ituted (Arexvy 120MCG/0.5mL) 12/22/2022 Td (Age >=7 Years) 02/02/2021,12/03/2007, 999 Tuberculin Skin Test, Unspecified 11/14/2024,04/2024 Zoster (Shingrix-RZV, recombinant) 03/20/2022, Zoster, Unspecified Formulation 03/20/2022,01/14 Family History Medical History Relation Name Comments Cancer Father colon Cancer Mother breast Good Health Sister Relation Name Status Comments Father Mother Sister Social History Tobacco Use Types Packs/Day Years Used Date Smoking Tobacco: Former Cigarettes 3 39 1 955 - 1994 Passive Smoke Exposure: Past Smokeless Tobacco: Never Tobacco Cessation:Counseling Given: No Alcohol Use Standard Drinks/Week Comments No 0 (1 standard drink = 0.6 oz pur e alcohol) PHQ-2 Answer Date Recorded PHQ-2 TOTAL SCORE 0 12/02/2024 Social Connections Answer Date Recorded Do you often feel lonely or isolated from those around you? 0 12/02/2024 Financial Resource Strain Answer Date R ecorded Difficulty of Paying Living Expenses 3 03/31/2024 Difficulty of Paying Living Expenses Not on file 03/31/2024 Food Insecurity Answer Date Recorded Do you worry your food will run out before you are able to buy more? 1 12/02/2024 Transportation Needs Answer Date Record ed Does lack of transportation keep you from medica l appointments? 1 12/02/2024 Does lack of transportation keep you from work, meetings or getting things that you need? 1 12/02/2024 Housing Stability Answer Date Recorded What is your housing situation today? 1 12/02/2024 Utilities Answer Date Recorded Do you have trouble paying f or utilities (for example, heat, electricity, water, phone)? 1 12/02/2024 Sex and Gender Information Value Date Recorded Sex Assigned at Not on file Legal Sex Male 7:52 AM [employer] Gender Identity Not on file Sexual Orientation Not on file Obstetrics History Last Filed Vital Signs Vital Sign Reading Time Taken Comments Blood Pressure 130/72 12/24/2024 9:20 AM CDT Pulse 68 12/24/2024 9:20 AM CDT Temperature 36.6 C (97.9 F) 12/24/2024 9:20 AM CDT Respiratory Rate 18 12/24/2024 9:20 AM CDT Oxygen Saturation 97% 12/24/2024 9:20 AM CDT Inhaled Oxygen Concentration - - Weight 99.5 kg (219 lb 4.8 oz) 12/02/2024 2:54 P M CDT Height 185 cm (6' 0.84) 12/02/2024 2:54 PM CDT Body Mass Index 29.06 12/02/2024 2:54 PM CDT Plan of Treatment Upcoming Encounters Date Type Department Care Team (Late st Contact Info) Description 01/01/2025 9:30 AM CDT [facility] [address] [place] [address] Ciro Amador, PT [address] [place], [place] [id number] 01/07/2025 3:00 AM CDT [facility] [address] [place] [address] Ciro Amador, PT [address] [place], [place] [id number] Health Maintenance Due Date Last Done Comments COVID-19 vaccine series ( season) 2024 12/17/2023, 12/17/2023, 01/12/2023, Additional history exists Influenza Vaccine (#1) 2024 , 01/07/2020, 01/07/2020, Additional history exists Medicare Wellness for age 65+ 04/01/2025 03/31/2024, 02/07/2023, 02/06/2022, Additional history exists BMI (ht and wt on same day) for age 18+ 12/02/2025 12/02/2024, 03/31/2024, 02/07/2023, Additional history exists Depression screening for age 12+ 12/02/2025 12/02/2024, 03/31/2024, 02/07/2023, Additional history exists Tetanus booster 02/02/2031 02/02/2021, 05/2007, 04/02/1998 Zoster (shingles) series for age 50+ Completed 03/20/2022, 01/14/2022 Pneumococcal series for age 50+ Completed 10/26/2022, 01/18/2015, 12/10/2002 RSV vaccine for adults or Completed 12/22/2022 Hepatitis B series for 19+ Aged Out N o longer eligible based on patient's age to complete this topic Procedures Procedure Name Priority Date/Time Associated Diagnosis Comments HEMOGLOBIN Routine 12/02/2024 3:41 PM CDT Hospital discharge follow-up S/p left hip fracture RED CELL MORPHOLOGY Routine 11/11/2024 8 :24 AM CDT Other specified postprocedural states PLATELET ESTIMATE Routine 11/11/2024 8:2 4 AM CDT Other specified postprocedural states MANUAL DIFFERENTIAL Routine 11/11/2024 8 :24 AM CDT Other specified postprocedural states CBC WITH AUTO DIFFERENTIAL Routine 11/11/2024 8:24 AM CDT Other specified postprocedural states BASIC METABOLIC PANEL Routine 11/11/2024 8:24 AM CDT Other specified postprocedural states CBC WITH AUTO DIFFERENTIAL Routine 11/11/2024 8:24 AM CDT Other specified postprocedural states SCAN-ELECTROCARDIOGR AM EKG 10/29/2024 12:00 AM CDT SCAN-RADIOLOGY REPORT 10/29/2024 12:00 AM CDT SCAN-RADIOLOGY REPORT 10/28/2024 12:00 AM CDT SCAN-ELECTROCARDIOGR AM EKG 10/27/2024 12:00 AM CDT SCAN-ELECTROCARDIOGR AM EKG 10/27/2024 12:00 AM CDT SCAN-ELECTROCARDIOGR AM EKG 10/27/2024 12:00 AM CDT SCAN-RADIOLOGY REPORT 10/27/2024 12:00 AM CDT SCAN-RADIOLOGY REPORT 10/27/2024 12:00 AM CDT from Last 3 Months Results * (ABNORMAL) HEMOGLOBIN (12/02/2024 3:41 PM CDT) HEMOGLOBIN 10.0(L) 13.2 - 17.1 g/dL 12/03/2024 4:50 AM CDT [facility] MCV 90.1 80.0 - 100.0 fL 12/03/2024 4:50 AM CDT [facility] Blood BLOOD SPECIMEN / Unknown [facility] / Unknown 12/02/2024 3:41 PM CDT 12/02/2024 3:41 PM CDT Adair Sharp MD HEMATOLOGY Final R esult [facility] [address] [place] [address], * (ABNORMAL) CBC WITH AUTO DIFFERENTIAL (11/11/2024 8:24 AM CDT) WHITE BLOOD COUNT 9.3 4.5 - 11.0 thou/cu mm 11/11/2024 11:21 AM [facility] RED BLOOD COUNT 3.39(L) 4.30 - 5.90 mil/cu mm 11/11/2024 11:21 AM [facility] HEMOGLOBIN 9.6(L) 13.5 - 17.5 g/dL 11/11/2024 11:21 AM [facility] HEMATOCRIT 29.7(L) 37.0 - 53.0 % 11/11/2024 11:21 AM [facility] MCV 88 80 - 100 fL 11/11/2024 11:21 AM [facility] MCH 28.3 26.0 - 34.0 pg 11/11/2024 11:21 AM [facility] MCHC 32.3 32.0 - 36.0 g/dL 11/11/2024 11:21 AM [facility] RDW 14.9 11.5 - 15.5 % 11/11/2024 11:21 AM [facility] PLATELET COUNT 298 140 - 440 thou/cu mm 11/11/2024 11:21 AM [facility] MPV 8.6 6.5 - 11.0 fL 11/11/2024 11:21 AM CDT [facility] Blood BLOOD SPECIMEN / Unknown Butterfly / Unknown 11/11/2024 8:24 AM CDT 11/11/2024 9:48 AM CDT Una Horton NP HEMATOLOGY Final Resul t Performing Organization Address City/[facility]/ZIP Co de Phone Number [facility] [address] [place] [address] * (ABNORMAL) RED CELL MORPHOLOGY (11/11/2024 8:24 AM CDT) ELLIPTOCYTES Few 11/11/2024 11:21 AM CDT [facility] RBC COMMENT Present(A ) RBC morphology appears normal, RBC morphology within normal limits for newborns. 11/11/2024 11:21 AM CDT [facility] Blood BLOOD SPECIMEN / Unknown Butterfly / Unknown 11/11/2024 8:24 AM CDT 11/11/2024 9:48 AM CDT Una Horton NP HEMATOLOGY Final Resul t Performing Organization Address [facility] Co de Phone Number [facility] [address] [place] [address] * PLATELET ESTIMATE (11/11/2024 8:24 AM CDT) PLATELET ESTIMATE Adequate Adequate, No estimate 11/11/2024 11:21 AM CDT [facility] Blood BLOOD SPECIMEN / Unknown Butterfly / Unknown 11/11/2024 8:24 AM CDT 11/11/2024 9:48 AM CDT Una Horton NP HEMATOLOGY Final Resul t Performing Organization Address City/[facility]/ZIP Co de Phone Number [facility] [address] [place] [address] * (ABNORMAL) MANUAL DIFFERENTIAL (11/11/2024 8:24 AM CDT) Pathologist [facility] % NEUTROPHILS 74.0 % 11/11/2024 11:21 AM T [facility] % LYMPHOCYTES 16.0 % 11/11/2024 11:21 AM T [facility] % MONOCYTES 4.0 % 11/11/2024 11:21 AM T [facility] % EOSINOPHILS 6.0 % 11/11/2024 11:21 AM T [facility] % BASOPHILS 0.0 % 11/11/2024 11:21 AM T [facility] NEUTROPHILS ABSOLUTE 6.9 1.7 - 7.0 thou/cu mm 11/11/2024 11:21 AM T [facility] LYMPHOCYTES ABSOLUTE 1.5 0.9 - 2.9 thou/cu mm 11/11/2024 11:21 AM T [facility] MONOCYTES ABSOLUTE 0.4 <0.9 thou/cu mm 11/11/2024 11:21 AM [facility] EOSINOPHILS ABSOLUTE 0.6(H) <0.5 thou/cu mm 11/11/2024 11:21 AM T [facility] BASOPHILS ABSOLUTE 0.0 <0.3 thou/cu mm 11/11/2024 11:21 AM [facility] Blood BLOOD SPECIMEN / Unknown Butterfly / Unknown 11/11/2024 8:24 AM CDT 11/11/2024 9:48 AM CDT us Una Horton NP HEMATOLOGY Final Resul t [facility] [address] [place] [address] * (ABNORMAL) BASIC METABOLIC PANEL (11/11/2024 8:24 AM CDT) [facility] SODIUM 137 136 - 145 mmol/L 11/11/2024 10:24 AM T [facility] POTASSIUM 3.9 3.5 - 5.1 mmol/L 11/11/2024 10:24 AM T [facility] CHLORIDE 100 98 - 107 mmol/L 11/11/2024 10:24 AM [facility] CO2,TOTAL 25 22 - 29 mmol/L 11/11/2024 10:24 AM [facility] ANION GAP 12 5 - 18 11/11/2024 10:24 AM [facility] GLUCOSE 135(H) 70 - 99 mg/dL 11/11/2024 10:24 AM [facility] CALCIUM 9.0 8.8 - 10.4 mg/dL 11/11/2024 10:24 AM [facility] Comment: Reference ranges for this test were updated on 02/05/2024 to reflect our healthy population more accurately. Reference range changes are not retroactively applied to results, but previous results using the same methodology can be interpreted in the context of the new reference range. BUN 25(H) 8 - 23 mg/dL 11/11/2024 10:24 AM [facility] CREATININE 1.32(H) 0.70 - 1.20 mg/dL 11/11/2024 10:24 AM [facility] BUN/CREAT RATIO 19 10 - 20 10:24 AM [facility] eGFR 52(L) >90 mL/min/1. 73m2 11/11/2024 10:24 AM [facility] Comment:As of 2021, eG FR is calculated by the CKD-EPI creatinine equation without race adjustment. eGFR can be influenced by muscle mass, exercise, and diet. The reported eGFR is an estimation only and is only applicable if the renal function is stable. Blood BLOOD SPECIMEN / Unknown Butterfly / Unknown 11/11/2024 8:24 AM CDT 11/11/2024 9:48 AM CDT us Una Horton COMB WINDER CHEMISTRY Final Resul t [facility] [address] [place] [address] * SCAN-RADIOLOGY REPORT (10/29/2024 12:00 AM CDT) Only the most recent of4 resultswithin the time period is included. Anatomical Region Laterality Modality Other us Scanner OTHER Final Result * SCAN-ELECTROCARDIOGRAM EKG (10/29/2024 12:00 AM CDT) Only the most recent of4 resultswithin the time period is included. us Scanner OTHER Final Result from Last 3 Months Insurance [facility] [employer] network Care Teams Branch Chief Relationship Specialty [place] [address] [place] [address] PCP - General Family Practice 01/28/18 [facility], [facility] [address] [place] [address] 11/27/24
--- NOTE | 2024-12-27 14:49 | CRLHL7_ITS ---
For Patients: As a result of the Century Cures Act, medical imaging exams and procedure reports are released immediately into your electronic medical record. You may view this report before your referring provider. If you have questions, please contact your health care provider. INDICATION: Shortness of breath TECHNIQUE: Single-view chest. COMPARISON: Chest x-ray 10/29/2024 FINDINGS: The lungs are clear. The heart, mediastinum and pulmonary vessels are of normal size. There is no evidence of pleural disease. IMPRESSION: Negative chest. Dictated by Claudia Mcneill MD @ 12/27/2024 3:43:47 PM (Electronically Signed)
--- NOTE | 2024-12-27 14:50 | ED.GENADULT ---
HPI - General Adult General Chief complaint: Weakness <Dmitri Royal MD - Last Filed: 12/27/24 15:59> Stated complaint: Weakness, chest tightness <Dmitri Royal MD - Last Filed: 12/27/24 15:59> Time Seen by Provider: 12/27/24 14:24 <Dmitri Royal MD - Last Filed: 12/27/24 15:59> History of Present Illness HPI narrative: Patient is 89-year-old gentleman who lives independently with his . Patient had a hip fracture approximately 2 months ago. That appears to be healed up postsurgery. He was having trouble getting out of his chair today and developed weakness and stumbled to the ground. He did not hit his head he did not lose consciousness he was assisted up by his family who brings him in further evaluation. Patient is having no pain consistent with injury. He states he feels somewhat unsteady and weak. Patient wears compression stockings to his thighs bilaterally for lower extremity edema. Has had no obvious sources of bleeding no difficulties with other falls. Patient has no bruising or ecchymosis no swelling. Patient is concerned that his weakness is progressing. <Dmitri Royal MD - Last Filed: 12/27/24 15:59> Related Data Home medications: Home Medications ?Medication ?Instructions ?Recorded ?Confirmed hydrochlorothiazide 25 mg tablet 25 mg PO DAILY 10/27/24 12/08/24 latanoprost 0.005 % eye drops 1 drp ophthalmic (eye) QPM 10/27/24 12/08/24 omeprazole 20 mg capsule,delayed 20 mg PO DAILY 10/27/24 12/08/24 release pravastatin 20 mg tablet 20 mg PO HS 10/27/24 12/08/24 timolol maleate 0.5 % eye drops 1 drp ophthalmic (eye-left) QAM 10/27/24 12/08/24 doxazosin 4 mg tablet 4 mg PO DAILY 12/08/24 12/08/24 Previous Rx's ?Medication ?Instructions ?Recorded rivaroxaban 10 mg tablet (Xarelto) 10 mg PO DAILY #10 tabs 10/31/24 tamsulosin 0.4 mg capsule 0.4 mg PO QHS #30 caps 10/31/24 <Dmitri Royal MD - Last Filed: 12/27/24 15:59> Allergies/adverse reactions: Allergies Allergy/AdvReac Type Severity Reaction Status Date / Time No Known Drug Allergies Allergy Verified 12/27/24 14:41 <Dmitri Royal MD - Last Filed: 12/27/24 15:59> Review of Systems Status of ROS: Reports: 10 or more systems reviewed and unremarkable except as noted in History and below <Dmitri Royal MD - Last Filed: 12/27/24 15:59> [facility] Medical History: Medical History Glaucoma ?H40.9 - Unspecified glaucoma (ICD-10) Venous insufficiency (12/09/19) ?I87.2 - Venous insufficiency (chronic) (peripheral) (ICD-10) Osteoarthritis (01/20/10) ?M19.90 - Unspecified osteoarthritis, unspecified site (ICD-10) Obesity (BMI 30-39.9) (01/31/18) ?E66.9 - Obesity, unspecified (ICD-10) Malignant neoplasm of prostate (01/18/11) ?C61 - Malignant neoplasm of prostate (ICD-10) Hyperlipidemia, unspecified (02/02/20) ?E78.5 - Hyperlipidemia, unspecified (ICD-10) Essential hypertension (08/03/21) ?I10 - Essential (primary) hypertension (ICD-10) Esophageal reflux disease (10/22/12) ?K21.9 - Gastro-esophageal reflux disease without esophagitis (ICD-10) BPH (benign prostatic hyperplasia) (01/20/10) ?N40.0 - Benign prostatic hyperplasia without lower urinary tract symptoms (ICD-10) <Dmitri Royal MD - Last Filed: 12/27/24 15:59> Surgical History: Surgical History History of open reduction and internal fixation (ORIF) procedure (10/28/24) ?Z98.890 - Other specified postprocedural states (ICD-10) 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) ?Z96.651 - Presence of right artificial knee joint (ICD-10) <Dmitri Royal MD - Last Filed: 12/27/24 15:59> Social History: Social History What is your current living situation?: I presently have a place to live Problems where you live: no known problems Problems where you live details: no known problems In the past 12 months, utilities in danger of being shut off: no In past 12 months, lack of transportation kept you from medical appts, meetings, work, or getting things needed for daily living: no In the past 12 mos, have been you worried that your food would run out before you had money to buy more?: never true In the past 12 mos, the food you bought just didn't last and you didn't have money to buy more?: never true Highest level of school completed/degree received: high school graduate Smoking Status: Former smoker What tobacco products do you use: cigarettes Smoking quit date/years: >15 years ago How often do you have a drink containing alcohol: never AUDIT-C Alcohol total score: 0 Non-prescribed substance use: denies use Caffeine: Yes How often does anyone, including family, friends and others, physically hurt you: never How often does anyone, including family, friends and others, insult or talk down to you: never How often does anyone, including family, friends and others, threaten you with harm: never How often does anyone, including family, friends and others, scream or curse at you: never service: Yes <Dmitri Royal MD - Last Filed: 12/27/24 15:59> Exam Narrative: Exam Narrative: EXAM GENERAL: Patient appears elderly. EYES: No scleral icterus. ENT: Tympanic membranes and oropharynx normal. THYROID: no thyroid nodules or thyromegaly. LYMPH: No supraclavicular or cervical lymphadenopathy. SKIN: Patient has some minor erythema in the right posterior hand and wrist. EXT: Bilateral lower extremity edema to the knees. Symmetric. HEART: Regular rate and rhythm with no murmurs, rubs, or gallops. LUNGS: Decreased breath sounds bilaterally. ABD: Soft, non tender, non distended. PSYCH: Good eye contact, speech is not pressured. <Dmitri Royal MD - Last Filed: 12/27/24 15:59> Const: Vital Signs, click to edit/add: Vital Signs - 24 hr 12/27/24 14:38 12/27/24 14:43 12/27/24 14:45 Temperature Pulse Rate 106 H 102 H 101 H Pulse Rate [Pulse Oximeter] Respiratory Rate Blood Pressure 132/74 Blood Pressure [Ri ght Upper Arm] Pulse Oximetry 92 95 96 Oxygen Delivery Me thod 12/27/24 14:52 12/27/24 14:52 12/27/24 15:02 Temperature 100.4 F H Pulse Rate 101 H Pulse Rate [Pulse Oximeter] 102 H Respiratory Rate 32 H Blood Pressure 121/67 144/78 H Blood Pressure [Ri ght Upper Arm] 132/74 Pulse Oximetry 95 89 Oxygen Delivery Me thod Room Air 12/27/24 15:06 12/27/24 15:32 12/27/24 16:11 Temperature Pulse Rate 104 H 101 H Pulse Rate [Pulse Oximeter] Respiratory Rate Blood Pressure 145/62 H Blood Pressure [Ri ght Upper Arm] Pulse Oximetry 94 93 Oxygen Delivery Me thod 12/27/24 16:15 12/27/24 16:30 12/27/24 16:32 Temperature Pulse Rate 101 H 94 101 H Pulse Rate [Pulse Oximeter] Respiratory Rate Blood Pressure 165/77 H Blood Pressure [Ri ght Upper Arm] Pulse Oximetry 92 93 93 Oxygen Delivery Me thod 12/27/24 16:54 12/27/24 17:00 12/27/24 17:02 Temperature Pulse Rate 110 H 113 H 109 H Pulse Rate [Pulse Oximeter] Respiratory Rate Blood Pressure 157/78 H Blood Pressure [Ri ght Upper Arm] Pulse Oximetry 90 92 91 Oxygen Delivery Me thod 12/27/24 17:32 12/27/24 17:33 12/27/24 17:36 Temperature Pulse Rate 113 H 117 H Pulse Rate [Pulse Oximeter] Respiratory Rate 44 H Blood Pressure 167/78 H Blood Pressure [Ri ght Upper Arm] Pulse Oximetry 92 91 Oxygen Delivery Me thod <Dmitri Royal MD - Last Filed: 12/27/24 15:59> Vital Signs, click to edit/add: Vital Signs - 24 hr 12/27/24 14:38 12/27/24 14:43 12/27/24 14:45 Temperature Pulse Rate 106 H 102 H 101 H Pulse Rate [Pulse Oximeter] Respiratory Rate Blood Pressure 132/74 Blood Pressure [Ri ght Upper Arm] Pulse Oximetry 92 95 96 Oxygen Delivery Me thod 12/27/24 14:52 12/27/24 14:52 12/27/24 15:02 Temperature 100.4 F H Pulse Rate 101 H Pulse Rate [Pulse Oximeter] 102 H Respiratory Rate 32 H Blood Pressure 121/67 144/78 H Blood Pressure [Ri ght Upper Arm] 132/74 Pulse Oximetry 95 89 Oxygen Delivery Me thod Room Air 12/27/24 15:06 12/27/24 15:32 12/27/24 16:11 Temperature Pulse Rate 104 H 101 H Pulse Rate [Pulse Oximeter] Respiratory Rate Blood Pressure 145/62 H Blood Pressure [Ri ght Upper Arm] Pulse Oximetry 94 93 Oxygen Delivery Me thod 12/27/24 16:15 12/27/24 16:30 12/27/24 16:32 Temperature Pulse Rate 101 H 94 101 H Pulse Rate [Pulse Oximeter] Respiratory Rate Blood Pressure 165/77 H Blood Pressure [Ri ght Upper Arm] Pulse Oximetry 92 93 93 Oxygen Delivery Me thod 12/27/24 16:54 12/27/24 17:00 12/27/24 17:02 Temperature Pulse Rate 110 H 113 H 109 H Pulse Rate [Pulse Oximeter] Respiratory Rate Blood Pressure 157/78 H Blood Pressure [Ri ght Upper Arm] Pulse Oximetry 90 92 91 Oxygen Delivery Me thod 12/27/24 17:32 12/27/24 17:33 12/27/24 17:36 Temperature Pulse Rate 113 H 117 H Pulse Rate [Pulse Oximeter] Respiratory Rate 44 H Blood Pressure 167/78 H Blood Pressure [Ri ght Upper Arm] Pulse Oximetry 92 91 Oxygen Delivery Me thod <Alexander Macias MD - Last Filed: 12/27/24 17:49> Course Course ED Course: Patient appears to be uninjured by his fall and actually appears to be probably in his usual state of health. I am concerned about his amount of edema and I did send off a D-dimer and BNP as well as troponin CBC comprehensive metabolic panel chest x-ray EKG UA. <Dmitri Royal MD - Last Filed: 12/27/24 15:59> Reevaluation(s) Time of Reevaluation #1: 16:00 <Alexander Macias MD - Last Filed: 12/27/24 17:49> Reevaluation #1: Sign-out from prior provider. Patient presents today with generalized weakness and fall, no other localizing symptoms. On exam here patient is tachycardic and febrile, not hypotensive. Labs with white blood cell count 14.2, hemoglobin 10.2, creatinine 1.8 which is proximally stable for the patient. Troponin 0.08 and will be repeated coming EKG without acute ischemic changes. BNP elevated at 8030. Urinalysis with moderate bacteria and blood but negative nitrites, negative leukocyte esterase, no white blood cells. D-dimer elevated, CT PE study ordered and also CT abdomen and pelvis. Anticipate admission. <Alexander Macias MD - Last Filed: 12/27/24 17:49> Time of Reevaluation #2: 16:51 <Alexander Macias MD - Last Filed: 12/27/24 17:49> Reevaluation #2: Labs independently interpreted by me with lactate 2.1, gentle fluid bolus ordered as patient does have elevated BNP although no history of heart failure. <Alexander Macias MD - Last Filed: 12/27/24 17:49> Time of Reevaluation #3: 16:57 <Alexander Macias MD - Last Filed: 12/27/24 17:49> Reevaluation #3: CT chest independently interpreted by me without acute infiltrate, pleural effusion, pericardial effusion, or pulmonary embolism. <Alexander Macias MD - Last Filed: 12/27/24 17:49> Additional Reevaluation(s): 5:12 p.m. patient examined. He has some noisy breathing and some expiratory wheezes but no crackles on exam. Examination of bilateral extremities with marked edema which family says is not usual, additionally the right lower leg is warm and erythematous with about a 6 cm blister anterior medially. There are some chronic venous stasis changes of the legs bilaterally. This would appear to represent cellulitis with edema. Zosyn and vancomycin are ordered, Lasix will be given to a diuresis and plan for admission. Will order bilateral lower extremity ultrasounds as well given his elevated D-dimer and lower extremity swelling. 5:48 p.m. care discussed with Dr. Juarez, hospitalist. Request CRP and procalcitonin which will be added orders, patient also given Lasix 40 mg. <Alexander Macias MD - Last Filed: 12/27/24 17:49> Vital Signs Vital signs: Initial Vital Signs Pulse Rate 106 H 12/27/24 14:38 Pulse Oximetry 92 12/27/24 14:38 Vital Signs Pulse Rate 106 H 12/27/24 14:38 Pulse Oximetry 92 12/27/24 14:38 Temperature 100.4 F H 12/27/24 14:52 Pulse Rate 117 H 12/27/24 17:33 Respiratory Rate 44 H 12/27/24 17:36 Blood Pressure 167/78 H 12/27/24 17:32 Pulse Oximetry 91 12/27/24 17:33 Oxygen Delivery Method Room Air 12/27/24 14:52 <Dmitri Royal MD - Last Filed: 12/27/24 15:59> Initial Vital Signs Pulse Rate 106 H 12/27/24 14:38 Pulse Oximetry 92 12/27/24 14:38 Vital Signs Pulse Rate 106 H 12/27/24 14:38 Pulse Oximetry 92 12/27/24 14:38 Temperature 100.4 F H 12/27/24 14:52 Pulse Rate 117 H 12/27/24 17:33 Respiratory Rate 44 H 12/27/24 17:36 Blood Pressure 167/78 H 12/27/24 17:32 Pulse Oximetry 91 12/27/24 17:33 Oxygen Delivery Method Room Air 12/27/24 14:52 <Alexander Macias MD - Last Filed: 12/27/24 17:49> Medications Administered Medications: Discontinued Medications Generic Name Dose Route Start Last Admin Trade Name Freq PRN Reason Stop Dose Admin Acetaminophen 1,000 mg 12/27/24 17:14 12/27/24 17:30 Acetaminophen 500 Mg Tablet PO 12/27/24 17:15 1,000 mg ONCE ONE Administration <Dmitri Royal MD - Last Filed: 12/27/24 15:59> Discontinued Medications Generic Name Dose Route Start Last Admin Trade Name Freq PRN Reason Stop Dose Admin Acetaminophen 1,000 mg 12/27/24 17:14 12/27/24 17:30 Acetaminophen 500 Mg Tablet PO 12/27/24 17:15 1,000 mg ONCE ONE Administration <Alexander Macias MD - Last Filed: 12/27/24 17:49> Medical Decision Making Lab Data Labs: Lab Results 12/27/24 12/27/24 12/27/24 Range/Units 14:49 15:13 16:19 WBC 14.27 H (4.50-11.00) K/uL RBC 3.69 L (4.30-5.90) m/uL Hgb 10.7 L (13.5-17.5) gm/dL Hct 31.6 L (37.0-53.0) % MCV 86 (80-100) fL MCH 29 (26-34) pg MCHC 34 (32-36) gm/dL RDW Coeff of Marita 14.8 (11.5-15.5) % Plt Count 105 L (140-440) K/uL Neut % (Auto) 91.6 H (42.0-72.0) % Lymph % (Auto) 3.6 L (20-44) % [place] % (Auto) 3.5 (0.0-11.0) % Eos % (Auto) 0.0 (0.0-7.0) % Baso % (Auto) 0.0 (0.0-3.0) % Neut # (Auto) 13.10 H (1.7-7.0) K/uL Lymph # (Auto) 0.50 L (0.90-2.90) K/uL [place] # (Auto) 0.50 (0.00-0.90) K/UL Eos # (Auto) 0.00 (0.00-0.50) K/uL Baso # (Auto) 0.00 (0.00-0.30) K/uL Abs Immat Gran (auto) 0.20 (0.00-0.30) K/uL Imm/Tot Granulo (auto) 1.3 % D-Dimer Quant (PE/DVT) 16.52 H (0.00-0.50) ug/ml Sodium 130 L (135-149) mmol/L Potassium 3.7 (3.6-5.1) mmol/L Chloride 97 (96-114) mmol/L Carbon Dioxide 21 (20-32) mmol/L Anion Gap 12 (7-15) mEq/L BUN 45 H (7-30) mg/dL Creatinine 1.8 H (0.5-1.5) mg/dL Estimated Creat Clear 33.25 Estimated GFR 36 ml/min Glucose 127 H (60-115) mg/dL Lactate 2.1 H (0.5-1.9) mmol/L Calcium 8.5 (8.4-10.6) mg/dL Total Bilirubin 0.8 (0.1-1.5) mg/dL AST 91 H (12-35) U/L ALT 30 (4-50) U/L Alkaline Phosphatase 87 (40-150) U/L Troponin I 0.08 H* (0.01-0.04) ng/mL NT-Pro-B Natriuret Pep 8030 H (See Note) pg/mL Total Protein 6.7 (6.0-8.3) g/dL Albumin 3.5 (3.3-5.0) g/dL Urine Color Minerva A (Yellow) Urine Appearance Slightly Cloudy A (Clear) Urine pH 5.5 (5.0-8.5) Ur Specific [place] 1.025 (1.000-1.030) Urine Protein 2+ A (Negative) Urine Glucose (UA) Negative (Negative) Urine Ketones Trace A (Negative) Urine Blood 3+ A (Negative) Urine Nitrite Negative (Negative) Urine Bilirubin Negative (Negative) Urine Urobilinogen 0.2 (0.2-1.0) Ur Leukocyte Esterase Negative (Negative) Urine RBC 0-2 (0-2) Urine WBC 0-2 (0-5) Ur Squamous Epith Cells None (None-Few) Amorphous Sediment Moderate A (None) Urine Bacteria Moderate A (None) Coarse Granular Casts Few A (None) <Dmitri Royal MD - Last Filed: 12/27/24 15:59> Lab Results 12/27/24 12/27/24 12/27/24 Range/Units 14:49 15:13 16:19 WBC 14.27 H (4.50-11.00) K/uL RBC 3.69 L (4.30-5.90) m/uL Hgb 10.7 L (13.5-17.5) gm/dL Hct 31.6 L (37.0-53.0) % MCV 86 (80-100) fL MCH 29 (26-34) pg MCHC 34 (32-36) gm/dL RDW Coeff of Marita 14.8 (11.5-15.5) % Plt Count 105 L (140-440) K/uL Neut % (Auto) 91.6 H (42.0-72.0) % Lymph % (Auto) 3.6 L (20-44) % [place] % (Auto) 3.5 (0.0-11.0) % Eos % (Auto) 0.0 (0.0-7.0) % Baso % (Auto) 0.0 (0.0-3.0) % Neut # (Auto) 13.10 H (1.7-7.0) K/uL Lymph # (Auto) 0.50 L (0.90-2.90) K/uL [place] # (Auto) 0.50 (0.00-0.90) K/UL Eos # (Auto) 0.00 (0.00-0.50) K/uL Baso # (Auto) 0.00 (0.00-0.30) K/uL Abs Immat Gran (auto) 0.20 (0.00-0.30) K/uL Imm/Tot Granulo (auto) 1.3 % D-Dimer Quant (PE/DVT) 16.52 H (0.00-0.50) ug/ml Sodium 130 L (135-149) mmol/L Potassium 3.7 (3.6-5.1) mmol/L Chloride 97 (96-114) mmol/L Carbon Dioxide 21 (20-32) mmol/L Anion Gap 12 (7-15) mEq/L BUN 45 H (7-30) mg/dL Creatinine 1.8 H (0.5-1.5) mg/dL Estimated Creat Clear 33.25 Estimated GFR 36 ml/min Glucose 127 H (60-115) mg/dL Lactate 2.1 H (0.5-1.9) mmol/L Calcium 8.5 (8.4-10.6) mg/dL Total Bilirubin 0.8 (0.1-1.5) mg/dL AST 91 H (12-35) U/L ALT 30 (4-50) U/L Alkaline Phosphatase 87 (40-150) U/L Troponin I 0.08 H* (0.01-0.04) ng/mL NT-Pro-B Natriuret Pep 8030 H (See Note) pg/mL Total Protein 6.7 (6.0-8.3) g/dL Albumin 3.5 (3.3-5.0) g/dL Urine Color Minerva A (Yellow) Urine Appearance Slightly Cloudy A (Clear) Urine pH 5.5 (5.0-8.5) Ur Specific [place] 1.025 (1.000-1.030) Urine Protein 2+ A (Negative) Urine Glucose (UA) Negative (Negative) Urine Ketones Trace A (Negative) Urine Blood 3+ A (Negative) Urine Nitrite Negative (Negative) Urine Bilirubin Negative (Negative) Urine Urobilinogen 0.2 (0.2-1.0) Ur Leukocyte Esterase Negative (Negative) Urine RBC 0-2 (0-2) Urine WBC 0-2 (0-5) Ur Squamous Epith Cells None (None-Few) Amorphous Sediment Moderate A (None) Urine Bacteria Moderate A (None) Coarse Granular Casts Few A (None) <Alexander Macias MD - Last Filed: 12/27/24 17:49> Discharge Plan Discharge Clinical Impression: Cellulitis of right lower leg, Edema of both legs, Venous insufficiency <Dmitri Royal MD - Last Filed: 12/27/24 15:59> Patient Disposition: Admitted As Inpatient <Dmitri Royal MD - Last Filed: 12/27/24 15:59>
[2024-12-27 14:56] LABS: Appearance Urine Slightly Cloudy (Clear)
[2024-12-27 15:23] LABS: Hematocrit* 31.6 % (37.0-53.0); Hemoglobin* 10.7 gm/dL (13.5-17.5); Immature Granulocytes Pct Auto 1.3 %; Mean Corpuscular HGB Conc 34 gm/dL (32-36); Mean Corpuscular Hemoglobin 29 pg (26-34); Mean Corpuscular Volume 86 fL (80-100); RDW Coefficient of Variation % 14.8 % (11.5-15.5); Red Blood Count* 3.69 m/uL (4.30-5.90); White Blood Count* 14.27 K/uL (4.50-11.00)
[2024-12-27 15:26] LABS: Immature Granulocytes Abs Auto 0.20 K/uL (0.00-0.30); Lymphocytes Absolute Auto 0.50 K/uL (0.90-2.90); Slide Review Reflex No
[2024-12-27 15:32] LABS: Albumin* 3.5 g/dL (3.3-5.0); Chloride* 97 mmol/L (96-114); Potassium* 3.7 mmol/L (3.6-5.1); Sodium* 130 mmol/L (135-149)
[2024-12-27 15:35] LABS: Alanine Aminotransferase* 30 U/L (4-50); Alkaline Phosphatase* 87 U/L (40-150); Anion Gap 12 mEq/L (7-15); Aspartate Amino Transferase* 91 U/L (12-35); Bilirubin Total* 0.8 mg/dL (0.1-1.5); Blood Urea Nitrogen* 45 mg/dL (7-30); Calcium* 8.5 mg/dL (8.4-10.6); Carbon Dioxide* 21 mmol/L (20-32); Creatinine* 1.8 mg/dL (0.5-1.5); Est. Creatinine Clearance* 33.25; Estimated Glomerular Filt Rate 36 ml/min; Glucose* 127 mg/dL (60-115); Total Protein* 6.7 g/dL (6.0-8.3)
[2024-12-27 15:48] LABS: NT Pro B Type NatriureticPept* 8030 pg/mL (See Note)
--- NOTE | 2024-12-27 15:56 | CRLHL7_ITS ---
For Patients: As a result of the Century Cures Act, medical imaging exams and procedure reports are released immediately into your electronic medical record. You may view this report before your referring provider. If you have questions, please contact your health care provider. Indication: Weakness shortness of breath, elevated D-dimer and fever Technique: Volumetric multidetector CT images of the abdomen and pelvis were obtained after the administration of intravenous contrast. 130 cc Isovue 370 low osmolar intravenous contrast Comparison: None available. Findings: There is basilar atelectasis and parenchymal scar within the partially visualized lung bases. There is mild hepatomegaly without significant hepatic steatosis or focal abnormality. The portal vein is patent. The gallbladder is unremarkable without evidence of radiopaque calculus. There is no significant common biliary ductal dilatation or abrupt cut off. The spleen is normal in enhancement and size. The stomach and duodenum are grossly unremarkable. The pancreas is normal in enhancement without significant atrophy. The adrenal glands are unremarkable. Peripelvic cystic changes of the left greater than right kidneys are appreciated without evidence of hydronephrosis or obstruction. There is moderate stool within the colon without evidence of focal pericolonic inflammatory change. There is likely peristalsis seen within the rectosigmoid colon. The appendix is unremarkable. Somewhat prominent right inguinal and pelvic sidewall lymph nodes are appreciated no other mesenteric or epigastric adenopathy is appreciated. Brachytherapy seeds within the prostate gland are appreciated otherwise the pelvic viscera are grossly within normal limits. There is mildly aneurysmal infrarenal abdominal aorta measuring 3.8 x 3.7 centimeters in greatest dimension with minimal scattered atherosclerotic calcification. There is no free fluid or free air. The anterior abdominal wall is intact without significant hernias. The lumbar vertebral body heights are grossly maintained with likely congenital versus prior fusion changes of the L3-L4 level. There is severe facet arthrosis. No evidence of displaced fracture. Impression: 1. Incidental note made of prominent right inguinal and pelvic sidewall lymph nodes which could represent reactive changes to right lower extremity infectious or inflammatory change. 2. Decompressed appearance of the colon with minimal stool. No definite acute intra-abdominal abnormality. 3. Minimal parapelvic cystic changes. 4. 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 Please note that all CT scans at this facility use dose modulation, iterative reconstruction, and/or weight-based dosing when appropriate to reduce radiation dose to as low as reasonably achievable. Dictated by Amanuel Al MD @ 12/27/2024 5:59:24 PM (Electronically Signed)
--- NOTE | 2024-12-27 15:56 | CRLHL7_ITS ---
For Patients: As a result of the Century Cures Act, medical imaging exams and procedure reports are released immediately into your electronic medical record. You may view this report before your referring provider. If you have questions, please contact your health care provider. INDICATION: Week shortness of breath elevated D-dimer TECHNIQUE: CT chest with 130 cc Isovue 370 intravenous contrast. COMPARISON: None. FINDINGS: Lungs and pleura: Emphysema. Again severe motion limits evaluation. Basilar atelectasis Heart and vasculature: Heart size is normal. Thoracic aorta and pulmonary artery are normal in caliber. Severe respiratory motion limits evaluation of distal pulmonary emboli. No central or proximal pulmonary emboli. Lymph nodes/mediastinum: No mediastinal, hilar, or axillary adenopathy. Chest wall: No masses. Upper abdomen: No significant findings. Bones: Unremarkable for age. IMPRESSION: 1. Severe motion limits evaluation of distal pulmonary emboli. No central or proximal pulmonary emboli. Emphysema. No acute pulmonary findings Please note that all CT scans at this facility use dose modulation, iterative reconstruction, and/or weight-based dosing when appropriate to reduce radiation dose to as low as reasonably achievable. Dictated by Claudia Mcneill MD @ 12/27/2024 5:50:34 PM (Electronically Signed)
[2024-12-27 16:06] LABS: D Dimer Quantitative* 16.52 ug/ml (0.00-0.50)
[2024-12-27 16:29] LABS: Lactate* 2.1 mmol/L (0.5-1.9)
--- NOTE | 2024-12-27 17:13 | CRLHL7_ITS ---
For Patients: As a result of the Century Cures Act, medical imaging exams and procedure reports are released immediately into your electronic medical record. You may view this report before your referring provider. If you have questions, please contact your health care provider. INDICATION: Bilateral lower extremity swelling with elevated D-dimer. TECHNIQUE: Ultrasound venous duplex bilateral lower extremity. Compression venous exam was performed using roberto-scale, color Doppler, and spectral Doppler analysis. COMPARISON: None. FINDINGS: Deep veins: Sonographic imaging demonstrates the bilateral common femoral, deep femoral, superficial femoral, popliteal, and posterior tibial veins to be fully compressible with normal color Doppler blood flow. Peroneal veins appear grossly patent on the right but are not definitively identified on the left. Superficial veins: Greater saphenous veins fully compressible. IMPRESSION: No sonographic evidence of DVT within either lower extremity, however evaluation of the left calf veins is limited on this examination. Dictated by Rashaad Gil MD @ 12/27/2024 7:08:19 PM (Electronically Signed)
[2024-12-27] MEDS: ACETAMINOPHEN 500 MG TABLET 1000 MG PO (17:30)
[2024-12-27 17:49] LABS: PCR FLU A Negative PCR FLU A (Negative); PCR FLU B Negative PCR FLU B (Negative); PCR RSV Negative PCR RSV (Negative); SARS PCR* Negative SARS-CoV-2 (Negative)
[2024-12-27] MEDS: FUROSEMIDE 10 MG/ML inj 40 MG IVP (17:58)
[2024-12-27] MEDS: IPRAT-ALBUT 0.5-2.5 MG/3 ML NEB 1 NEB IH (18:09)
--- NOTE | 2024-12-27 18:25 | P.IMHP_ITS ---
Assessment and Plan Assessment and plan (1) Sepsis: Problem comment: -source is right leg. No known MRSA hx. MRSA pending. Bulla noted - likely a staph infection. -high likelihood of bacteremia. B/C pending. -broad spectrum initiated with Vanc/Cefepime. -LR for fluid bolus in this patient with SULAIMAN, mild CHF and edema but intravascularly dry (30cc/kg is not appropriate given his CHF; will do 250-500cc an hour as frequent reassessments -monitor urine output (Bhatia), blood pressure, pulse, lactate, respiratory status. Admitted to CCU. -sepsis criteria: temp, HR, RR, WBC count. Lactate >2, creatinine almost 2 and platelets 105 -also given his INR of 1.5 and DDimer elevation - likely due to endothelial activation and cytokine storm from infection. Status: Acute (2) Myocardial strain: Problem comment: -initial trop is 0.08, repeat 0.10. will follow. No acute ECG changes or symptoms of chest pain/heaviness. -EKG reviewed and compared to previous. -324mg aspirin administered -treat the sepsis Status: Acute (3) Cellulitis of right lower leg: Problem comment: -no wound cultures yet -venous duplex neg -broad spectrum antibiotics -treat the sepsis -mrsa swab sent Status: Acute (4) CHF with unknown LVEF: Problem comment: -last echo in 2021 - normal LVEF (EF67%) with mild . -rec'd lasix in the ED but first priority is the sepsis, intravascular depletion and avoiding end organ assault -we can catch up diuresis once sepsis has resolved Status: Acute (5) Delirium: Problem comment: -intermittent, mild. He's confused tonight on timing and duration of symptoms. -treat the sepsis Status: Acute (6) Essential hypertension: Problem comment: -holding home meds Status: Acute (7) Venous insufficiency: Problem comment: -chronic with stasis changes -ordered edemawear Status: Acute (8) Anemia: Problem comment: Hemoglobin January 2023 was 13.5. ABLA this summer with hip fracture; rec'd one unit PRBCS. abhishek was 7.9. 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 He presents with about 24 hours of acute weakness, delirium. His son is able to give me and lot of the history. He states his father and mother both went [place] 2 nights ago and seemed to be in the usual state of health. In fact, his , needs support with the walker and oxygen and he was able to provide that to his . Family spoke to him yesterday and he seemed normal. This morning Eben's called their son and said that his father had slipped from his easy recliner was on the floor. When the son arrived he was unable to get his father up. Fire and rescue were able to put him back in his chair. However eventually they called 911 as he was unable to stand. His son states that he was also out of it. He was thinking his hip fracture had just happened and that was actually back on 10/28/2024 here in our hospital. He completed a month of rehab at [facility]. The ER to notice of a very red right murillo with a singular bulla, peripheral edema, delirium and fever. Apparently he has chronic venous stasis and insufficiency. However his legs are more swollen than usual. His hands are swollen. The ER also noted tachypnea, tachycardia, and fever. Hospitalist team was contacted to further evaluate this gentleman who appears to be in sepsis with acute heart failure complicated by SULAIMAN, advanced age, delirium and myocardial strain. ER COURSE: Labs, imaging (which included a CTA, abdomen pelvis CT, venous duplex), blood cultures. He was given Tylenol and Lasix. No fluid bolus or antibiotics were noted to be administered in the ER. CODE STATUS: DNR/DNI. I confirmed this with his family as well. Even for short term he does not want to be intubated or on any amount of life support. 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 Bedside was Stanley, son, and Miranda, [id number]. His Kamryn has advancing dementia and is unable to make decisions for his healthcare. I've updated the PFSH, medications and allergies in the Expanse tabs. INVESTIGATIONS: LABS/MICRO/ECG/IMAGING Patient presented with a low-grade fever 100.4? F Blood pressure has been mildly elevated since arrival 165/77, 167/78 Pulse rate low 100s up to 117, sinus tach Respiratory rate has been elevated 32-44 Pulse ox 91% on room air Stated weight 120 kilos His labs are reviewed. -leukocytosis at 14.27, 91% neutrophils. -hemoglobin 10.7, previously anemic from ABLA in our system from a hip fracture. -platelets are depressed 105. -D-dimer markedly elevated at 16.52 -no venous blood gas has been run from this presentation -chemistries reflect a known hyponatremia -kidney function reveals that he is likely intravascularly dry at 1.8, BUN 45 -glucose is 127 -elevated lactate at 2.1 --> 2.2 -liver function test shows AST of 91 -troponin is 0.08 --> 0.10 -CRP is 33. procalcitonin is 30. -proBNP is 8000 -his albumin and total protein are normal -urine is maria de jesus, 2+ protein, 3+ blood. Negative for LE and nitrate. -negative respiratory swab CT abdomen pelvis 1. Incidental note made of prominent right inguinal and pelvic sidewall lymph nodes which could represent reactive changes to right lower extremity infectious or inflammatory change. 2. Decompressed appearance of the colon with minimal stool. No definite acute intra-abdominal abnormality. 3. Minimal parapelvic cystic changes. 4. 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 CTA 1. Severe motion limits evaluation of distal pulmonary emboli. No central or proximal pulmonary emboli. Emphysema. No acute pulmonary findings U/S No sonographic evidence of DVT within either lower extremity, however evaluation of the left calf veins is limited on this examination. BC x 2 UC pending ECHO 2021 Final Impressions: 1. Normal left ventricular size, mildly increased wall thickness, normal global systolic function, calculated EF of 67 %. 2. Right ventricular cavity size is normal, global systolic RV function is normal. 3. The aortic valve is calcified and trileaflet, mild stenosis and no regurgitation. 4. The inferior vena cava is normal sized, respiratory size variation greater than 50%. ? Comparison There are no prior studies on this patient for comparison purposes. REVIEW OF SYSTEMS: 12-point ROS completed with patient and negative unless otherwise stated in HPI or below. PHYSICAL EXAM: CONSTITUTIONAL: warm, flushed. mild delirium at times. cooperative. GENERAL: Well-developed and above ideal body weight VITAL SIGNS: see record. HEENT: Dry mucus membranes and lips. no JVD, but habitus makes it hard to examine. CARDIAC: rhythm is regular. There is no S3 or rub. No harsh murmurs. PULM: exp wheezing, shallow tachypnea NEURO: Speech is fluent. A brief neurologic exam is negative. SKIN: confluent hyperemia and edema to the right lower extremity. large 8x6cm bulla noted on anterior murillo. chronic appearing wound on the plantar surface of right foot. mild erythema in the right groin. right dorsum of hand is warm and swollen. PSYCHIATRIC: Euthymic. ADMIT TO MEDSURG: CCU DVT: Lovenox GI: PO intake Time spent: Today I spent 75 minutes seeing the patient, discussing the patient with ER staff, reviewing Expanse and EPIC notes/diagnostics, discussing the care plan with our care time that includes social work, PT/OT, pharmacy, RT, care home and documenting my impressions and plan in the medical record. MEDICAL NECESSITY FOR HOSPITALIZATION Anticipated midnights in the hospital: 2+ Admitting diagnosis: sepsis, chf, myocardial strain, cellulitis, delirium. Risk of morbidity and mortality: high Acuity is characterized as high and reflected in: High acuity with presentation. Likely bacteremic, advanced age, SULAIMAN, delirium, myocardial strain verses non-STEMI. This patient will require hospital services as outlined in the assessment and plan in order to stabilize and be safely discharged to a lower level of care. Because of the risk and acuity as described above, this patient cannot be managed at a lower level of care. LENGTH OF STAY: 2 IP ? Anticipated LOS>2 midnights due to acuity of clinical presentation requiring inpatient level of care Medical Decision Making Medical Decision Making Has patient completed a Health Care Directive: Yes [facility] Medical History (Updated 12/27/24 @ 22:04 by Keturah Juarez MD) Glaucoma ?H40.9 - Unspecified glaucoma (ICD-10) Venous insufficiency (12/09/19) ?I87.2 - Venous insufficiency (chronic) (peripheral) (ICD-10) Osteoarthritis (01/20/10) ?M19.90 - Unspecified osteoarthritis, unspecified site (ICD-10) Obesity (BMI 30-39.9) (01/31/18) ?E66.9 - Obesity, unspecified (ICD-10) Malignant neoplasm of prostate (01/18/11) ?C61 - Malignant neoplasm of prostate (ICD-10) Hyperlipidemia, unspecified (02/02/20) ?E78.5 - Hyperlipidemia, unspecified (ICD-10) Essential hypertension (08/03/21) ?I10 - Essential (primary) hypertension (ICD-10) Esophageal reflux disease (10/22/12) ?K21.9 - Gastro-esophageal reflux disease without esophagitis (ICD-10) BPH (benign prostatic hyperplasia) (01/20/10) ?N40.0 - Benign prostatic hyperplasia without lower urinary tract symptoms (ICD-10) Surgical History (Updated 12/27/24 @ 18:43 by Keturah Juarez MD) History of open reduction and internal fixation (ORIF) procedure (10/28/24) ?Z98.890 - Other specified postprocedural states (ICD-10) 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 lives in [place] with his who has dementia and physical limitations. 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 What is your current living situation?: I presently have a place to live Problems where you live: no known problems Problems where you live details: n/a In the past 12 months, utilities in danger of being shut off: no In past 12 months, lack of transportation kept you from medical appts, meetings, work, or getting things needed for daily living: no In the past 12 mos, have been you worried that your food would run out before you had money to buy more?: never true In the past 12 mos, the food you bought just didn't last and you didn't have money to buy more?: never true Highest level of school completed/degree received: high school graduate Smoking Status: Former smoker What tobacco products do you use: cigarettes Smoking quit date/years: >15 years ago Do you use any of these nicotine containing products: None Second hand tobacco smoke exposure: No How often do you have a drink containing alcohol: never AUDIT-C Alcohol total score: 0 Non-prescribed substance use: denies use Caffeine: Yes How often does anyone, including family, friends and others, physically hurt you : never How often does anyone, including family, friends and others, insult or talk down to you: never How often does anyone, including family, friends and others, threaten you with harm: never How often does anyone, including family, friends and others, scream or curse at you: never service: Yes Meds Home Medications and Allergies Home Medications ?Medication ?Instructions ?Recorded ?Confirmed ?Type hydrochlorothiazide 25 mg tablet 25 mg PO DAILY 12/08/24 History latanoprost 0.005 % eye drops 1 drp ophthalmic (eye) Q PM 10/27/24 12/08/24 History omeprazole 20 mg capsule,delayed 20 mg PO DAILY 12/08/24 History release pravastatin 20 mg tablet 20 mg PO HS 10/27/24 5 History timolol maleate 0.5 % eye drops 1 drp ophthalmic (eye- left) QAM 10/27/24 12/08/24 History rivaroxaban 10 mg tablet (Xarelto) 10 mg PO DAILY #10 tabs 10/31/24 12/08/24 Rx tamsulosin 0.4 mg capsule 0.4 mg PO QHS #30 caps 10/3112/08/24 Rx doxazosin 4 mg tablet 4 mg PO DAILY 12/08/2412/08 History Allergies Allergy/AdvReac Type Severity Reaction Status Date / Time No Known Drug Allergies Allergy Verified 12/27/24 14:41 Exam 2 Const: Vital Signs, click to edit/add: Vital Signs - 24 hr 12/27/24 14:38 12/27/24 14:43 12/27/24 14:45 Temperature Pulse Rate 106 H 102 H 101 H Pulse Rate [Pulse Oximeter] Respiratory Rate Blood Pressure 132/74 Blood Pressure [Ri ght Upper Arm] Pulse Oximetry 92 95 96 Oxygen Delivery Al thod 12/27/24 14:52 12/27/24 14:52 12/27/24 15:02 Temperature 100.4 F H Pulse Rate 101 H Pulse Rate [Pulse Oximeter] 102 H Respiratory Rate 32 H Blood Pressure 121/67 144/78 H Blood Pressure [Ri ght Upper Arm] 132/74 Pulse Oximetry 95 89 [facility] 12/27/24 15:06 12/27/24 15:32 12/27/24 16:11 Temperature Pulse Rate 104 H 101 H Pulse Rate [Pulse Oximeter] Respiratory Rate Blood Pressure 145/62 H Blood Pressure [Ri ght Upper Arm] Pulse Oximetry 94 93 Oxygen Delivery Al thod 12/27/24 16:15 12/27/24 16:30 12/27/24 16:32 Temperature Pulse Rate 101 H 94 101 H Pulse Rate [Pulse Oximeter] Respiratory Rate Blood Pressure 165/77 H Blood Pressure [Ri ght Upper Arm] Pulse Oximetry 92 93 93 [facility] 12/27/24 16:54 12/27/24 17:00 12/27/24 17:02 Temperature Pulse Rate 110 H 113 H 109 H Pulse Rate [Pulse Oximeter] Respiratory Rate Blood Pressure 157/78 H Blood Pressure [Ri ght Upper Arm] Pulse Oximetry 90 92 91 [facility] 12[facility]27/24 17:32 12/27/24 17:33 12/27/24 17:36 Temperature Pulse Rate 113 H 117 H Pulse Rate [Pulse Oximeter] Respiratory Rate 44 H Blood Pressure 167/78 H Blood Pressure [Ri ght Upper Arm] Pulse Oximetry 92 91 Oxygen Delivery [facility] - H&P: Result Labs Labs: Short CBC 12/27/24 Range/Units 15:13 WBC 14.27 H (4.50-11.00) K/uL Hgb 10.7 L (13.5-17.5) gm/dL Hct 31.6 L (37.0-53.0) % Plt Count 105 L (140-440) K/uL BMP 12/27/24 15:13 Sodium 130 L Potassium 3.7 Chloride 97 Carbon Dioxide 21 BUN 45 H Creatinine 1.8 H Glucose 127 H Calcium 8.5 Cardiac Enzymes 12/27/24 Range/Units 15:13 Troponin I 0.08 H* (0.01-0.04) ng/mL Liver Function 09/27/25 Range/Units 15:13 Total Bilirubin 0.8 (0.1-1.5) mg/dL AST 91 H (12-35) U/L ALT 30 (4-50) U/L Alkaline Phosphatase 87 (40-150) U/L Albumin 3.5 (3.3-5.0) g/dL Urine 12/27/24 Range/Units 14:49 Urine Color Maria De Jesus A (Yellow) Urine Appearance Slightly Cloudy A (Clear) Urine pH 5.5 (5.0-8.5) Ur Specific [place] 1.025 (1.000-1.030) Urine Protein 2+ A (Negative) Urine Glucose (UA) Negative (Negative)
[2024-12-27 18:28] LABS: Procalcitonin* 30.30 ng/mL (<0.50)
[2024-12-27] MEDS: VANCOMYCIN 1.5 GM/300 ML 1.5 GM/300 ML PIGGYBACK IVPB (19:37)
[2024-12-27] MEDS: PANTOPRAZOLE SODIUM 40 MG INJ IVP (19:37)
[2024-12-27] MEDS: CEFEPIME HCL 2 GM in 0.9 % SODIUM CHLORIDE Mini-bag 100 ML IVPB (19:37)
[2024-12-27 19:38] LABS: PCO2 VBG 33 mmHG (40-50); pH VBG 7.451 (7.32-7.43)
[2024-12-27 19:39] LABS: HCO3 VBG 23 mmol/L (21-28); PO2 VBG 45.5 mmHG (25-47)
[2024-12-27] MEDS: LACTATED RINGERS 500 ML 500 ML IV (19:43)
[2024-12-27 19:46] LABS: Lactate* 2.2 mmol/L (0.5-1.9)
[2024-12-27 20:50] LABS: INR 1.49 (0.91-1.10); Prothrombin Time 19.0 Seconds
[2024-12-27] MEDS: ASPIRIN 81 MG TAB.CHEW 324 MG PO (20:59)
[2024-12-27] MEDS: ENOXAPARIN 40 MG/0.4 ML INJ SUBCUT (20:59)
[2024-12-27] MEDS: SODIUM CHLORIDE 0.9 % (FLUSH) 10 ML SYRINGE 5 ML IVF (20:59)
[2024-12-27] MEDS: LACTATED RINGERS 1000 ML 1,000 ML 250 ML IV (21:30)
[2024-12-27 23:30] LABS: HCO3 VBG 23 mmol/L (21-28); Lactate* 2.6 mmol/L (0.5-1.9); PCO2 VBG 36 mmHG (40-50); PO2 VBG 60.0 mmHG (25-47); pH VBG 7.406 (7.32-7.43)
[2024-12-28] VITALS (34 sets, daily range): BP systolic 110–140; BP diastolic 48–82; PULSE 75–96; RESP 22–30; TEMP 36.2–37.7; O2SAT 91–96
[2024-12-28] MEDS: LACTATED RINGERS 1000 ML 1,000 ML 250 ML IV (01:12)
[2024-12-28] MEDS: CEFEPIME HCL 2 GM in 0.9 % SODIUM CHLORIDE Mini-bag 100 ML IVPB ×3 (03:14→19:25)
[2024-12-28] MEDS: SODIUM CHLORIDE 0.9 % (FLUSH) 10 ML SYRINGE 5 ML IVF ×3 (03:15→19:42)
[2024-12-28 05:13] LABS: Hematocrit* 31.0 % (37.0-53.0); Hemoglobin* 10.5 gm/dL (13.5-17.5); Immature Granulocytes Abs Auto 0.17 K/uL (0.00-0.30); Immature Granulocytes Pct Auto 2.1 %; Mean Corpuscular HGB Conc 34 gm/dL (32-36); Mean Corpuscular Hemoglobin 29 pg (26-34); Mean Corpuscular Volume 86 fL (80-100); RDW Coefficient of Variation % 15.2 % (11.5-15.5); Red Blood Count* 3.62 m/uL (4.30-5.90); White Blood Count* 8.16 K/uL (4.50-11.00)
[2024-12-28 05:22] LABS: Lymphocytes Absolute Auto 0.40 K/uL (0.90-2.90)
[2024-12-28 05:26] LABS: Chloride* 96 mmol/L (96-114); Sodium* 128 mmol/L (135-149)
[2024-12-28 05:27] LABS: Albumin* 3.0 g/dL (3.3-5.0); Potassium* 3.3 mmol/L (3.6-5.1)
[2024-12-28 05:30] LABS: Anion Gap 10 mEq/L (7-15); Blood Urea Nitrogen* 49 mg/dL (7-30); Calcium* 8.3 mg/dL (8.4-10.6); Carbon Dioxide* 22 mmol/L (20-32); Creatinine* 1.7 mg/dL (0.5-1.5); Est. Creatinine Clearance* 35.21; Estimated Glomerular Filt Rate 38 ml/min; Glucose* 116 mg/dL (60-115)
[2024-12-28 05:41] LABS: Iron* 17 ug/dL (49-181)
[2024-12-28 05:46] LABS: Lab Add On Test New Spec Needed
[2024-12-28 05:47] LABS: Procalcitonin* 31.10 ng/mL (<0.50)
[2024-12-28 05:50] LABS: Percent Iron Saturation 9 % (20-50); Total Iron Binding Capacity 199 ug/dL (261-462)
[2024-12-28 06:26] LABS: Slide Review Reflex Yes
[2024-12-28 06:27] LABS: Slide Review Acceptable Review (Acceptable)
--- NOTE | 2024-12-28 06:48 | PC.NURSE ---
[id number]: Patient pleasant and cooperative. A&Ox3 with some confusion. Afebrile. Heavy A2/walker/GB. Franco patent. Denies pain but winces when repositioned, declined pain medication. RUE, RLE, and inner R. thigh with edema and redness TREMAINE. Problem areas outlined. Black scab on R. lateral plantar area CAMP TENDER. Meplix to coccyx for protection. Crackles noted upon 0300 assessment. Dereje updated. Orders to pause IVF and monitor. BP remained stable with SBP 120-135.
[2024-12-28 06:50] LABS: Lactate* 1.7 mmol/L (0.5-1.9)
[2024-12-28] MEDS: OMEPRAZOLE 20 MG CAPSULE DR PO (09:02)
[2024-12-28] MEDS: timoloL maleate 0.5 % 1 DROP EYE-LEFT (09:03)
--- NOTE | 2024-12-28 14:05 | P.IMPN_ITS ---
Assessment and Plan Assessment and plan (1) Sepsis: Problem comment: -source is right leg. No known MRSA hx. MRSA pending. Bulla noted - likely a staph infection. -high likelihood of bacteremia. B/C pending. -broad spectrum initiated with Vanc/Cefepime. -LR for fluid bolus in this patient with SULAIMAN, mild CHF and edema but intravascularly dry (30cc/kg is not appropriate given his CHF; will do 250-500cc an hour as frequent reassessments -monitor urine output (Bhatia), blood pressure, pulse, lactate, respiratory status. Admitted to CCU. -sepsis criteria: temp, HR, RR, WBC count. Lactate >2, creatinine almost 2 and platelets 105 -also given his INR of 1.5 and DDimer elevation - likely due to endothelial activation and cytokine storm from infection. - 12/28 Lactate normalized. BP stable, WBC normalized, HR and Tachypnea improving. MS improving. MRSA swab from ruptured bulla today. BCx2 G+ cocci in chains. Continue vanco/cefepime. Status: Acute (2) Gram positive bacterial infection: Problem comment: - As above, continue vanco/cefepime Status: Acute (3) Myocardial strain: Problem comment: -initial trop is 0.08, repeat 0.10. will follow. No acute ECG changes or symptoms of chest pain/heaviness. -EKG reviewed and compared to previous. -324mg aspirin administered -treat the sepsis - 12/28 trop improving. Asymptomatic. Status: Acute (4) Cellulitis of right lower leg: Problem comment: -no wound cultures yet -venous duplex neg -broad spectrum antibiotics -treat the sepsis -mrsa swab sent - 12/28 MRSA swab pending. Continue vanco/cefepime. Status: Acute (5) CHF with unknown LVEF: Problem comment: -last echo in 2021 - normal LVEF (EF67%) with mild . -rec'd lasix in the ED but first priority is the sepsis, intravascular depletion and avoiding end organ assault -we can catch up diuresis once sepsis has resolved - 12/28 No exacerbation. EF lower on today's ECHO, around low 40's. Monitor, at risk for acute pulmonary edema. Status: Acute (6) Delirium: Problem comment: -intermittent, mild. He's confused tonight on timing and duration of symptoms. -treat the sepsis RESOLVED Status: Acute (7) Essential hypertension: Problem comment: -holding home meds - 12/28 no hypertension yet, continue to hold antihypertensive medications, monitor Status: Acute (8) Venous insufficiency: Problem comment: -chronic with stasis changes -ordered edemawear Status: Acute (9) Anemia: Problem comment: Hemoglobin January 2023 was 13.5. ABLA this summer with hip fracture; rec'd one unit PRBCS. abhishek was 7.9. presentation today 10.7 - 12/28 stable Status: Acute (10) BPH (benign prostatic hyperplasia): Problem comment: -bhatia placed Status: Chronic (11) Chronic kidney disease: Problem comment: Stage IIIB, baseline creatinine 1.4-1.6. Today's creatinine 1.7 which is slightly down from yesterday at 1.8. Monitor. Status: Acute (12) Thrombocytopenia: Problem comment: Thrombocytopenia present since September, platelets lower today than they have been, likely due to sepsis, but okay to still give enoxaparin, consider holding this if platelets get much lower. Status: Acute Total Time Spent Total Time Spent: Today I spent 50 minutes seeing the patient, reviewing [facility] and [facility] notes/diagnostics/labs, discussing the care plan with our care team that includes social work, PT/OT, pharmacy, RT, penitentiary and documenting my impressions and plan in the medical record. Subjective Time Seen by Provider: 08:10 Date Seen: 12/28/24 Interval history: Ford tells me he's feeling better. Nursing staff notes he's still tachypneic, but less so. RT saw him and was the same RT who saw him yesterday and also confirms that he looks better today. Ford's family was not in the room this morning and when I went back this afternoon, they had already left. Exam Narrative: Exam Narrative: General: No acute distress. Awake, alert, oriented x3. No pallor. No jaundice. Oropharynx: Clear. Mucous membranes moist. Cardiovascular: Regular rate and rhythm. No murmurs, gallops, or rubs. Respiratory: A few fine bibasilar crackles, no tightness or wheezing. Abdomen: Bowel sounds present. Soft, nondistended, nontender. Extremities: R dorsum of hand remains warm and edematous without much erythema. RLE edematous with warmth and domingo erythema, slightly receded from lines drawn. Const: Vital Signs, click to edit/add: Vital Signs - 24 hr 12/27/24 14:38 12/27/24 14:43 12/27/24 14:45 Temperature Pulse Rate 106 H 102 H 101 H Pulse Rate [Pulse Oximeter] Respiratory Rate Blood Pressure 132/74 Blood Pressure [Ri ght Arm] Blood Pressure [Ri ght Upper Arm] Pulse Oximetry 92 95 96 Oxygen Delivery Me thod Oxygen Flow Rate 12/27/24 14:52 12/27/24 14:52 12/27/24 15:02 Temperature 100.4 F H Pulse Rate 101 H Pulse Rate [Pulse Oximeter] 102 H Respiratory Rate 32 H Blood Pressure 121/67 144/78 H Blood Pressure [Ri ght Arm] Blood Pressure [Ri ght Upper Arm] 132/74 Pulse Oximetry 95 89 Oxygen Delivery Me thod Room Air Oxygen Flow Rate 12/27/24 15:06 12/27/24 15:32 12/27/24 16:11 Temperature Pulse Rate 104 H 101 H Pulse Rate [Pulse Oximeter] Respiratory Rate Blood Pressure 145/62 H Blood Pressure [Ri ght Arm] Blood Pressure [Ri ght Upper Arm] Pulse Oximetry 94 93 Oxygen Delivery Me thod Oxygen Flow Rate 12/27/24 16:15 12/27/24 16:30 12/27/24 16:32 Temperature Pulse Rate 101 H 94 101 H Pulse Rate [Pulse Oximeter] Respiratory Rate Blood Pressure 165/77 H Blood Pressure [Ri ght Arm] Blood Pressure [Ri ght Upper Arm] Pulse Oximetry 92 93 93 Oxygen Delivery Me thod Oxygen Flow Rate 12/27/24 16:54 12/27/24 17:00 12/27/24 17:02 Temperature Pulse Rate 110 H 113 H 109 H Pulse Rate [Pulse Oximeter] Respiratory Rate Blood Pressure 157/78 H Blood Pressure [Ri ght Arm] Blood Pressure [Ri ght Upper Arm] Pulse Oximetry 90 92 91 Oxygen Delivery Me thod Oxygen Flow Rate 12/27/24 17:32 12/27/24 17:33 12/27/24 17:36 Temperature Pulse Rate 113 H 117 H Pulse Rate [Pulse Oximeter] Respiratory Rate 44 H Blood Pressure 167/78 H Blood Pressure [Ri ght Arm] Blood Pressure [Ri ght Upper Arm] Pulse Oximetry 92 91 Oxygen Delivery Me thod Oxygen Flow Rate 12/27/24 17:45 12/27/24 18:00 12/27/24 18:02 Temperature Pulse Rate 105 H 106 H 106 H Pulse Rate [Pulse Oximeter] Respiratory Rate Blood Pressure 127/71 Blood Pressure [Ri ght Arm] Blood Pressure [Ri ght Upper Arm] Pulse Oximetry 95 94 96 Oxygen Delivery Me thod OxyMask OxyMask OxyMask Oxygen Flow Rate 2 2 2 12/27/24 18:15 12/27/24 18:30 12/27/24 18:33 Temperature Pulse Rate 103 H 104 H Pulse Rate [Pulse Oximeter] Respiratory Rate Blood Pressure 140/70 H Blood Pressure [Ri ght Arm] Blood Pressure [Ri ght Upper Arm] Pulse Oximetry 95 Oxygen Delivery Me thod OxyMask OxyMask OxyMask Oxygen Flow Rate 2 2 2 12/27/24 19:11 12/27/24 19:26 12/27/24 19:26 Temperature 97.0 F L Pulse Rate Pulse Rate [Pulse Oximeter] 92 Respiratory Rate 30 H 28 H Blood Pressure Blood Pressure [Ri ght Arm] 114/57 L Blood Pressure [Ri ght Upper Arm] Pulse Oximetry 95 92 90 Oxygen Delivery Me thod Nasal Cannula Room Air Oxygen Flow Rate 2.0 12/27/24 20:02 12/27/24 20:34 12/27/24 21:01 Temperature 97.7 F 97.6 F Pulse Rate 87 Pulse Rate [Pulse Oximeter] 85 85 Respiratory Rate 28 H 30 H Blood Pressure Blood Pressure [Ri ght Arm] 115/57 L 124/78 Blood Pressure [Ri ght Upper Arm] Pulse Oximetry 93 96 Oxygen Delivery Me thod Nasal Cannula Nasal Cannula Oxygen Flow Rate 2.0 2.0 12/27/24 21:16 12/27/24 21:30 12/27/24 22:03 Temperature 97.6 F 97.7 F Pulse Rate Pulse Rate [Pulse Oximeter] 85 84 81 Respiratory Rate 30 H 32 H 30 H Blood Pressure Blood Pressure [Ri ght Arm] 124/78 107/70 108/57 L Blood Pressure [Ri ght Upper Arm] Pulse Oximetry 96 95 95 Oxygen Delivery Me thod Nasal Cannula Nasal Cannula Nasal Cannula Oxygen Flow Rate 2.0 2.0 2.0 12/27/24 23:00 12/27/24 23:00 12/27/24 23:00 Temperature Pulse Rate 80 Pulse Rate [Pulse Oximeter] Respiratory Rate 28 H Blood Pressure Blood Pressure [Ri ght Arm] Blood Pressure [Ri ght Upper Arm] Pulse Oximetry 95 96 Oxygen Delivery Me thod Nasal Cannula Oxygen Flow Rate 2.0 12/27/24 23:00 12/27/24 23:02 12/28/24 00:00 Temperature 97.5 F L 98.3 F Pulse Rate Pulse Rate [Pulse Oximeter] 73 75 Respiratory Rate 28 H 28 H 28 H Blood Pressure Blood Pressure [Ri ght Arm] 104/54 L 110/63 Blood Pressure [Ri ght Upper Arm] Pulse Oximetry 94 95 Oxygen Delivery Me thod Nasal Cannula Nasal Cannula Oxygen Flow Rate 2.0 2.0 12/28/24 00:31 12/28/24 01:00 12/28/24 02:02 Temperature 97.5 F L 98.5 F Pulse Rate Pulse Rate [Pulse Oximeter] 77 78 85 Respiratory Rate 28 H 28 H 28 H Blood Pressure Blood Pressure [Ri ght Arm] 121/54 L 122/59 L 130/64 Blood Pressure [Ri ght Upper Arm] Pulse Oximetry 96 95 96 Oxygen Delivery Me thod Nasal Cannula Nasal Cannula Nasal Cannula Oxygen Flow Rate 2.0 2.0 2.0 12/28/24 03:00 12/28/24 03:19 12/28/24 03:30 Temperature 97.1 F L Pulse Rate 83 Pulse Rate [Pulse Oximeter] 88 Respiratory Rate 28 H 30 H Blood Pressure Blood Pressure [Ri ght Arm] 137/64 Blood Pressure [Ri ght Upper Arm] Pulse Oximetry 95 Oxygen Delivery Me thod Room Air Oxygen Flow Rate 12/28/24 04:00 12/28/24 05:00 12/28/24 07:31 Temperature 97.1 F L Pulse Rate 88 Pulse Rate [Pulse Oximeter] 88 88 Respiratory Rate 30 H 28 H Blood Pressure Blood Pressure [Ri ght Arm] 124/68 135/74 Blood Pressure [Ri ght Upper Arm] Pulse Oximetry 93 93 Oxygen Delivery Me thod Room Air Room Air Oxygen Flow Rate 2.0 12/28/24 07:38 12/28/24 07:45 12/28/24 07:50 Temperature 99.1 F Pulse Rate Pulse Rate [Pulse Oximeter] 85 Respiratory Rate 26 H 26 H Blood Pressure Blood Pressure [Ri ght Arm] 128/61 Blood Pressure [Ri ght Upper Arm] Pulse Oximetry 95 95 95 Oxygen Delivery Me thod Room Air Room Air Oxygen Flow Rate 12/28/24 10:45 12/28/24 11:00 12/28/24 11:29 Temperature 98.3 F 98.8 F Pulse Rate 91 Pulse Rate [Pulse Oximeter] 91 90 Respiratory Rate 26 H 26 H Blood Pressure Blood Pressure [Ri ght Arm] 132/82 131/62 Blood Pressure [Ri ght Upper Arm] Pulse Oximetry 96 96 Oxygen Delivery Me thod Room Air Oxygen Flow Rate Labs Labs: Laboratory Results - last 24 hr 12/27/24 12/27/24 12/27/24 14:49 15:13 16:19 WBC 14.27 H RBC 3.69 L Hgb 10.7 L Hct 31.6 L MCV 86 MCH 29 MCHC 34 RDW Coeff of Marita 14.8 Plt Count 105 L Neut % (Auto) 91.6 H Lymph % (Auto) 3.6 L [place] % (Auto) 3.5 Eos % (Auto) 0.0 Baso % (Auto) 0.0 Neut # (Auto) 13.10 H Lymph # (Auto) 0.50 L [place] # (Auto) 0.50 Eos # (Auto) 0.00 Baso # (Auto) 0.00 Abs Immat Gran (auto) 0.20 Imm/Tot Granulo (auto) 1.3 Diff Slide Review INR D-Dimer Quant (PE/DVT) 16.52 H VBG pH 7.451 H VBG pCO2 33 L VBG pO2 45.5 VBG HCO3 23 Sodium 130 L Potassium 3.7 Chloride 97 Carbon Dioxide 21 Anion Gap 12 BUN 45 H Creatinine 1.8 H Estimated Creat Clear 33.25 Estimated GFR 36 Glucose 127 H Lactate 2.1 H Calcium 8.5 Phosphorus Iron TIBC % Saturation Total Bilirubin 0.8 AST 91 H ALT 30 Alkaline Phosphatase 87 Troponin I 0.08 H* C-Reactive Protein 33.3 H NT-Pro-B Natriuret Pep 8030 H Total Protein 6.7 Albumin 3.5 Procalcitonin 30.30 H TSH Urine Color Minerva A Urine Appearance Slightly Cloudy A Urine pH 5.5 Ur Specific [place] 1.025 Urine Protein 2+ A Urine Glucose (UA) Negative Urine Ketones Trace A Urine Blood 3+ A Urine Nitrite Negative Urine Bilirubin Negative Urine Urobilinogen 0.2 Ur Leukocyte Esterase Negative Urine RBC 0-2 Urine WBC 0-2 Ur Squamous Epith Cells None Amorphous Sediment Moderate A Urine Bacteria Moderate A Coarse Granular Casts Few A SARS-CoV-2 (PCR) Influenza Type A (PCR) Influenza Type B (PCR) RSV (PCR) Lab Acknowledgement 12/27/24 12/27/24 12/27/24 16:35 17:48 19:26 WBC RBC Hgb Hct MCV MCH MCHC RDW Coeff of Marita Plt Count Neut % (Auto) Lymph % (Auto) [place] % (Auto) Eos % (Auto) Baso % (Auto) Neut # (Auto) Lymph # (Auto) [place] # (Auto) Eos # (Auto) Baso # (Auto) Abs Immat Gran (auto) Imm/Tot Granulo (auto) Diff Slide Review INR D-Dimer Quant (PE/DVT) VBG pH VBG pCO2 VBG pO2 VBG HCO3 Sodium Potassium Chloride Carbon Dioxide Anion Gap BUN Creatinine Estimated Creat Clear Estimated GFR Glucose Lactate Calcium Phosphorus Iron TIBC % Saturation Total Bilirubin AST ALT Alkaline Phosphatase Troponin I C-Reactive Protein NT-Pro-B Natriuret Pep Total Protein Albumin Procalcitonin TSH Urine Color Urine Appearance Urine pH Ur Specific [place] Urine Protein Urine Glucose (UA) Urine Ketones Urine Blood Urine Nitrite Urine Bilirubin Urine Urobilinogen Ur Leukocyte Esterase Urine RBC Urine WBC Ur Squamous Epith Cells Amorphous Sediment Urine Bacteria Coarse Granular Casts SARS-CoV-2 (PCR) Negative SARS-CoV-2 Influenza Type A (PCR) Negative PCR FLU A Influenza Type B (PCR) Negative PCR FLU B RSV (PCR) Negative PCR RSV Lab Acknowledgement Test Added Test Added 12/27/24 12/27/24 12/27/24 19:40 20:19 23:27 WBC RBC Hgb Hct MCV MCH MCHC RDW Coeff of Marita Plt Count Neut % (Auto) Lymph % (Auto) [place] % (Auto) Eos % (Auto) Baso % (Auto) Neut # (Auto) Lymph # (Auto) [place] # (Auto) Eos # (Auto) Baso # (Auto) Abs Immat Gran (auto) Imm/Tot Granulo (auto) Diff Slide Review INR 1.49 H D-Dimer Quant (PE/DVT) VBG pH 7.406 VBG pCO2 36 L VBG pO2 60.0 H VBG HCO3 23 Sodium Potassium Chloride Carbon Dioxide Anion Gap BUN Creatinine Estimated Creat Clear Estimated GFR Glucose Lactate 2.2 H 2.6 H Calcium Phosphorus Iron TIBC % Saturation Total Bilirubin AST ALT Alkaline Phosphatase Troponin I 0.10 H* 0.10 H* C-Reactive Protein NT-Pro-B Natriuret Pep Total Protein Albumin Procalcitonin TSH Urine Color Urine Appearance Urine pH Ur Specific [place] Urine Protein Urine Glucose (UA) Urine Ketones Urine Blood Urine Nitrite Urine Bilirubin Urine Urobilinogen Ur Leukocyte Esterase Urine RBC Urine WBC Ur Squamous Epith Cells Amorphous Sediment Urine Bacteria Coarse Granular Casts SARS-CoV-2 (PCR) Influenza Type A (PCR) Influenza Type B (PCR) RSV (PCR) Lab Acknowledgement Test Added 12/28/24 12/28/24 12/28/24 05:07 05:44 06:38 WBC 8.16 RBC 3.62 L Hgb 10.5 L Hct 31.0 L MCV 86 MCH 29 MCHC 34 RDW Coeff of Marita 15.2 Plt Count 85 L Neut % (Auto) 91.1 H Lymph % (Auto) 4.3 L [place] % (Auto) 2.5 Eos % (Auto) 0.0 Baso % (Auto) 0.0 Neut # (Auto) 7.40 H Lymph # (Auto) 0.40 L [place] # (Auto) 0.20 Eos # (Auto) 0.00 Baso # (Auto) 0.00 Abs Immat Gran (auto) 0.17 Imm/Tot Granulo (auto) 2.1 Diff Slide Review Acceptable Review INR D-Dimer Quant (PE/DVT) VBG pH VBG pCO2 VBG pO2 VBG HCO3 Sodium 128 L Potassium 3.3 L Chloride 96 Carbon Dioxide 22 Anion Gap 10 BUN 49 H Creatinine 1.7 H Estimated Creat Clear 35.21 Estimated GFR 38 Glucose 116 H Lactate 1.7 Calcium 8.3 L Phosphorus 4.3 Iron 17 L TIBC 199 L % Saturation 9 L Total Bilirubin AST ALT Alkaline Phosphatase Troponin I 0.07 H* C-Reactive Protein 40.9 H NT-Pro-B Natriuret Pep Total Protein Albumin 3.0 L Procalcitonin 31.10 H TSH 2.220 Urine Color Urine Appearance Urine pH Ur Specific [place] Urine Protein Urine Glucose (UA) Urine Ketones Urine Blood Urine Nitrite Urine Bilirubin Urine Urobilinogen Ur Leukocyte Esterase Urine RBC Urine WBC Ur Squamous Epith Cells Amorphous Sediment Urine Bacteria Coarse Granular Casts SARS-CoV-2 (PCR) Influenza Type A (PCR) Influenza Type B (PCR) RSV (PCR) Lab Acknowledgement New Spec Needed A
--- NOTE | 2024-12-28 17:10 | PC.NURSE ---
Shift Summary: Patient pleasant and cooperative, using call light and responding appropriately. Attempted to stand patient with 2 assist, walker and gait belt but had difficulty. Patient now using ceiling lift. Tolerating regular diet, good appetite. Blister on right murillo leaking, wound culture done. Franco patent with clear yellow urine. T-max 99.8 during shift. Patient denies pain, had been offered Acetaminophen throughout shift but denied need. Right murillo with non-adhesive dressing. Mepilex placed on right elbow to cover skin tear noted this morning, no blood present. Barrier cream to bottom following skin care.
[2024-12-28] MEDS: LATANOPROST 0.005% OPHTH 1 DROP EYE-BOTH (18:21)
[2024-12-28] MEDS: VANCOMYCIN 1.75 GM/350 ML 1.75 GM/350 ML PIGGYBACK IVPB (18:28)
[2024-12-28] MEDS: ENOXAPARIN 40 MG/0.4 ML INJ SUBCUT (19:41)
[2024-12-28] MEDS: ACETAMINOPHEN 325 MG TABLET 650 MG PO (20:03)
[2024-12-28] MEDS: MELATONIN 3 MG TABLET 6 MG PO (20:03)
[2024-12-29] VITALS (19 sets, daily range): BP systolic 106–156; BP diastolic 54–73; PULSE 66–88; RESP 18–26; TEMP 36.7–37.7; O2SAT 91–95
[2024-12-29] MEDS: CEFEPIME HCL 2 GM in 0.9 % SODIUM CHLORIDE Mini-bag 100 ML IVPB ×3 (03:38→19:40)
--- NOTE | 2024-12-29 04:44 | PC.NURSE ---
Pt rested well this night. Remained Afebrile overnight. RR @ 24/min. Tele NSR with occ PVC. Reporting zero pain. Right sided cellulitis outlined. +3 edema Right leg. Unstageable ulcer rt foot. Cognition seems to have returned to baseline.
[2024-12-29 06:10] LABS: Hematocrit* 28.1 % (37.0-53.0); Hemoglobin* 9.7 gm/dL (13.5-17.5); Immature Granulocytes Abs Auto 0.02 K/uL (0.00-0.30); Immature Granulocytes Pct Auto 0.2 %; Mean Corpuscular HGB Conc 35 gm/dL (32-36); Mean Corpuscular Hemoglobin 29 pg (26-34); Mean Corpuscular Volume 85 fL (80-100); RDW Coefficient of Variation % 14.9 % (11.5-15.5); Red Blood Count* 3.32 m/uL (4.30-5.90); White Blood Count* 8.71 K/uL (4.50-11.00)
[2024-12-29 06:13] LABS: Lymphocytes Absolute Auto 0.60 K/uL (0.90-2.90); Slide Review Reflex No
[2024-12-29 06:23] LABS: Albumin* 2.7 g/dL (3.3-5.0); Chloride* 94 mmol/L (96-114); Sodium* 127 mmol/L (135-149)
[2024-12-29 06:27] LABS: Anion Gap 10 mEq/L (7-15); Blood Urea Nitrogen* 56 mg/dL (7-30); Calcium* 8.0 mg/dL (8.4-10.6); Carbon Dioxide* 23 mmol/L (20-32); Creatinine* 1.7 mg/dL (0.5-1.5); Est. Creatinine Clearance* 35.21; Estimated Glomerular Filt Rate 38 ml/min; Glucose* 113 mg/dL (60-115)
[2024-12-29 06:35] LABS: Potassium* 2.7 mmol/L (3.6-5.1)
[2024-12-29 06:43] LABS: Procalcitonin* 23.50 ng/mL (<0.50)
[2024-12-29] MEDS: POTASSIUM BICARB 25 MEQ EFFERVESCENT TAB PO ×3 (07:41→12:41)
[2024-12-29] MEDS: timoloL maleate 0.5 % 1 DROP EYE-LEFT (07:41)
[2024-12-29] MEDS: OMEPRAZOLE 20 MG CAPSULE DR PO (07:41)
[2024-12-29] MEDS: SODIUM CHLORIDE 0.9 % (FLUSH) 10 ML SYRINGE 5 ML IVF ×2 (10:01→19:32)
[2024-12-29] MEDS: ACETAMINOPHEN 325 MG TABLET 650 MG PO ×2 (10:58→19:24)
[2024-12-29 15:19] LABS: Chloride* 95 mmol/L (96-114); Potassium* 3.4 mmol/L (3.6-5.1); Sodium* 126 mmol/L (135-149)
[2024-12-29 15:22] LABS: Anion Gap 9 mEq/L (7-15); Blood Urea Nitrogen* 58 mg/dL (7-30); Calcium* 8.2 mg/dL (8.4-10.6); Carbon Dioxide* 22 mmol/L (20-32); Creatinine* 1.6 mg/dL (0.5-1.5); Est. Creatinine Clearance* 37.41; Estimated Glomerular Filt Rate 41 ml/min; Glucose* 183 mg/dL (60-115)
--- NOTE | 2024-12-29 15:37 | PC.SOCIAL ---
Addendum entered by JORDAN Mejia 12/29/24 15:54: Discharge planning: An email was sent by this worker to Kenisha at [facility] asking about short-term rehab availability. Social work to follow-up. Original Note: Discharge planning: railway track worker met with pt to discuss discharge planning, as pt is being recommended for short-term rehab at discharge from this hospital stay and stated that he would like to go back to [facility] if possible. railway track worker did share that this worker would have to check on availability with their admissions staff and also the pt's insurance coverage. Pt has a Medicare Advantage Plan with [facility], which is usually [id number] with [facility] and requires daily co-pay rates. When the pt went to [facility] earlier this summer he went under a worker's compensation insurance claim. Social work to follow-up as needed.
--- NOTE | 2024-12-29 17:41 | PM.IMPN1 ---
Assessment and Plan Assessment and plan (1) Sepsis: Problem comment: -source is right leg. No known MRSA hx. MRSA pending. Bulla noted - likely a staph infection. -high likelihood of bacteremia. B/C pending. -broad spectrum initiated with Vanc/Cefepime. -LR for fluid bolus in this patient with SULAIMAN, mild CHF and edema but intravascularly dry (30cc/kg is not appropriate given his CHF; will do 250-500cc an hour as frequent reassessments -monitor urine output (Bhatia), blood pressure, pulse, lactate, respiratory status. Admitted to CCU. -sepsis criteria: temp, HR, RR, WBC count. Lactate >2, creatinine almost 2 and platelets 105 -also given his INR of 1.5 and DDimer elevation - likely due to endothelial activation and cytokine storm from infection. - 12/28 Lactate normalized. BP stable, WBC normalized, HR and Tachypnea improving. MS improving. MRSA swab from ruptured bulla today. BCx2 G+ cocci in chains. Continue vanco/cefepime. - 12/29 Sepsis resolved. Status: Acute (2) Gram positive bacterial infection: Problem comment: - As above, continue vanco/cefepime - 12/29 Strep bacteremia. TTE no vegetation. MRSA swab neg. Await sensitivities, may need ID input, will likely need outpatient PILAR. Continue cefepime. D/c vanco. Status: Acute (3) Myocardial strain: Problem comment: -initial trop is 0.08, repeat 0.10. will follow. No acute ECG changes or symptoms of chest pain/heaviness. -EKG reviewed and compared to previous. -324mg aspirin administered -treat the sepsis - 12/28 trop improving. Asymptomatic. Status: Acute (4) Cellulitis of right lower leg: Problem comment: -no wound cultures yet -venous duplex neg -broad spectrum antibiotics -treat the sepsis -mrsa swab sent - 12/28 MRSA swab pending. Continue vanco/cefepime. - 12/29 Treat as above in G+ bacterial infection Status: Acute (5) CHF with unknown LVEF: Problem comment: -last echo in 2021 - normal LVEF (EF67%) with mild . -rec'd lasix in the ED but first priority is the sepsis, intravascular depletion and avoiding end organ assault -we can catch up diuresis once sepsis has resolved - 12/28 No exacerbation. EF lower on today's ECHO, around low 40's. Monitor, at risk for acute pulmonary edema. - 12/29 no signs of exacerbation. Stable, chronic HFpEF (formal read EF is 50-55%) Status: Acute (6) Delirium: Problem comment: -intermittent, mild. He's confused tonight on timing and duration of symptoms. -treat the sepsis RESOLVED Status: Acute (7) Essential hypertension: Problem comment: -holding home meds - 12/28 no hypertension yet, continue to hold antihypertensive medications, monitor - 12/29 BP still not elevated, continue to monitor and hold antihypertensive medications Status: Acute (8) Venous insufficiency: Problem comment: -chronic with stasis changes -ordered edemawear Status: Acute (9) Anemia: Problem comment: Hemoglobin January 2023 was 13.5. ABLA this summer with hip fracture; rec'd one unit PRBCS. abhishek was 7.9. presentation today 10.7 - 12/28 stable Status: Acute (10) BPH (benign prostatic hyperplasia): Problem comment: -bhatia placed Status: Chronic (11) Chronic kidney disease: Problem comment: Stage IIIB, baseline creatinine 1.4-1.6. Today's creatinine 1.7 which is slightly down from admission at 1.8. Monitor. Status: Acute (12) Thrombocytopenia: Problem comment: Thrombocytopenia present since September, platelets lower today than they have been, likely due to sepsis, but okay to still give enoxaparin, consider holding this if platelets get much lower. Status: Acute Plan 89-year-old male with history of CHF, hypertension, venous insufficiency, anemia, chronic kidney disease, thrombocytopenia who presented with sepsis due to streptococcal bacteremia from cellulitis of the right hand and lower extremity. He has been treated with cefepime and vancomycin. Vancomycin is now discontinued due to MRSA swab being negative and cultures growing out strep. Awaiting sensitivities and evaluating with therapies. Will likely need 2-3 more days in the hospital while we await sensitivities and determine discharge plan. Total Time Spent Total Time Spent: Today I spent 50 minutes seeing the patient, discussing with family, reviewing [facility] and EPIC notes/diagnostics/labs, discussing the care plan with our care team that includes social work, PT/OT, pharmacy, RT, mcfp and documenting my impressions and plan in the medical record. Subjective Time Seen by Provider: 07:27 Date Seen: 12/29/24 Interval history: Eben is feeling much better today, but still weak. His (in a wheelchair) and [id number] visited later in the morning and I returned to speak with them. His has some memory issues. His [id number] noted that it may be time for both of them to go to assisted living, and demonstrated understanding that he would likely need rehab before doing so. He has been to [facility] before and would like to return there. He has been sitting in the chair awhile and notes some pain in his bottom so he was repositioned to eat lunch. Exam Narrative: Exam Narrative: General: No acute distress. Awake, alert, oriented. Sitting in the bedside chair. No pallor. No jaundice. Oropharynx: Clear. Mucous membranes moist. Cardiovascular: Regular rate and rhythm. No murmurs, gallops, or rubs. Respiratory: Clear to auscultation bilateral, no crackles, no tightness or wheezing. Abdomen: Bowel sounds present. Soft, nondistended, nontender. Extremities: R dorsum of hand remains warm and edematous without much erythema. RLE edematous with warmth and domnigo erythema, receding from lines drawn. Const: Vital Signs, click to edit/add: Vital Signs - 24 hr 12/28/24 19:31 12/28/24 19:33 12/28/24 19:39 Temperature 100 F H Pulse Rate 96 Pulse Rate [Pulse Oximeter] 84 84 Respiratory Rate 24 24 Blood Pressure [Le ft Arm] Blood Pressure [Ri ght Arm] 140/51 H Pulse Oximetry 91 Oxygen Delivery Me thod Room Air Oxygen Flow Rate 12/28/24 20:03 12/28/24 21:17 12/28/24 21:23 Temperature 100 F H 99.6 F 99.6 F Pulse Rate Pulse Rate [Pulse Oximeter] 88 Respiratory Rate 28 H Blood Pressure [Le ft Arm] Blood Pressure [Ri ght Arm] 113/48 L Pulse Oximetry 92 Oxygen Delivery Me thod Room Air Oxygen Flow Rate 12/28/24 22:10 12/28/24 22:11 12/28/24 22:15 Temperature Pulse Rate 83 Pulse Rate [Pulse Oximeter] Respiratory Rate 28 H Blood Pressure [Le ft Arm] Blood Pressure [Ri ght Arm] Pulse Oximetry 93 93 Oxygen Delivery Me thod Room Air Oxygen Flow Rate 0 12/28/24 22:40 12/28/24 22:41 12/29/24 00:56 Temperature 99.0 F 98.6 F Pulse Rate Pulse Rate [Pulse Oximeter] 83 83 76 Respiratory Rate 24 24 24 Blood Pressure [Le ft Arm] Blood Pressure [Ri ght Arm] 135/50 L 139/58 L Pulse Oximetry 93 91 Oxygen Delivery Me thod Room Air Room Air Oxygen Flow Rate 0 12/29/24 01:54 12/29/24 01:55 12/29/24 01:59 Temperature 98.7 F Pulse Rate 80 Pulse Rate [Pulse Oximeter] 88 88 Respiratory Rate 24 24 Blood Pressure [Le ft Arm] Blood Pressure [Ri ght Arm] 125/64 Pulse Oximetry 92 Oxygen Delivery Me thod Room Air Oxygen Flow Rate 12/29/24 04:11 12/29/24 07:00 12/29/24 08:00 Temperature 98.5 F Pulse Rate 87 Pulse Rate [Pulse Oximeter] 66 Respiratory Rate 24 Blood Pressure [Le ft Arm] Blood Pressure [Ri ght Arm] 138/65 Pulse Oximetry 93 91 Oxygen Delivery Me thod Room Air Oxygen Flow Rate 12/29/24 08:00 12/29/24 08:00 12/29/24 08:00 Temperature Pulse Rate Pulse Rate [Pulse Oximeter] 87 87 Respiratory Rate 24 24 24 Blood Pressure [Le ft Arm] Blood Pressure [Ri ght Arm] 132/71 Pulse Oximetry 91 91 Oxygen Delivery Me thod Room Air Room Air Oxygen Flow Rate 12/29/24 09:50 12/29/24 11:00 12/29/24 11:50 Temperature Pulse Rate Pulse Rate [Pulse Oximeter] 78 78 77 Respiratory Rate 20 20 18 Blood Pressure [Le ft Arm] 118/54 L 106/58 L Blood Pressure [Ri ght Arm] Pulse Oximetry 93 95 Oxygen Delivery Me thod Room Air Room Air Oxygen Flow Rate 12/29/24 12:30 12/29/24 13:50 12/29/24 15:00 Temperature Pulse Rate 73 73 Pulse Rate [Pulse Oximeter] 77 Respiratory Rate Blood Pressure [Le ft Arm] 125/65 Blood Pressure [Ri ght Arm] Pulse Oximetry 94 Oxygen Delivery Me thod Room Air Oxygen Flow Rate 12/29/24 15:00 12/29/24 15:00 12/29/24 15:50 Temperature 98.0 F Pulse Rate Pulse Rate [Pulse Oximeter] 79 Respiratory Rate 24 Blood Pressure [Le ft Arm] 137/73 Blood Pressure [Ri ght Arm] Pulse Oximetry 94 94 94 Oxygen Delivery Me thod Room Air Room Air Oxygen Flow Rate Labs Labs: Laboratory Results - last 24 hr 12/29/24 12/29/24 12/29/24 05:59 07:13 14:58 WBC 8.71 RBC 3.32 L Hgb 9.7 L Hct 28.1 L MCV 85 MCH 29 MCHC 35 RDW Coeff of Marita 14.9 Plt Count 90 L Neut % (Auto) 87.5 H Lymph % (Auto) 7.1 L Finney % (Auto) 4.7 Eos % (Auto) 0.5 Baso % (Auto) 0.0 Neut # (Auto) 7.60 H Lymph # (Auto) 0.60 L Finney # (Auto) 0.40 Eos # (Auto) 0.04 Baso # (Auto) 0.00 Abs Immat Gran (auto) 0.02 Imm/Tot Granulo (auto) 0.2 Sodium 127 L 126 L Potassium 2.7 L* 3.4 L Chloride 94 L 95 L Carbon Dioxide 23 22 Anion Gap 10 9 BUN 56 H 58 H Creatinine 1.7 H 1.6 H Estimated Creat Clear 35.21 37.41 Estimated GFR 38 41 Glucose 113 183 H Calcium 8.0 L 8.2 L Phosphorus 3.3 Magnesium 1.7 C-Reactive Protein 43.9 H Albumin 2.7 L Procalcitonin 23.50 H Lab Acknowledgement Test Added
[2024-12-29] MEDS: LATANOPROST 0.005% OPHTH 1 DROP EYE-BOTH (19:18)
[2024-12-29] MEDS: LIDOCAINE 5% PATCH 1 PATCH TRANSDERMA (19:18)
[2024-12-29] MEDS: IPRAT-ALBUT 0.5-2.5 MG/3 ML NEB 1 NEB IH (19:18)
--- NOTE | 2024-12-29 19:23 | PC.NURSE ---
Nursing Care Hours: [id number] Pt this shift calm and cooperative, alert and oriented. Pain reported to L hip, treated with PO meds and positioning. Bandage to RLE saturated. Bandage changed with ABD pad and krelix wrap. Franco patent. Sat in chair for lunch. Required assistance with breakfast d/t weakness. Able to feed self lunch and dinner. VSS. Pt became SOB while in bed after dinner. Denies aspiration or choking. LS clear but audible wheezing heard while in room, spo2 stable on RA. One time lanre ordered end of shift. Communicated task to evening RN.
[2024-12-29] MEDS: ENOXAPARIN 40 MG/0.4 ML INJ SUBCUT (19:40)
[2024-12-29] MEDS: MELATONIN 3 MG TABLET 6 MG PO (22:26)
[2024-12-30] VITALS (8 sets, daily range): BP systolic 110–153; BP diastolic 52–78; PULSE 70–97; RESP 18–28; TEMP 36.7–37.1; O2SAT 89–95
[2024-12-30] MEDS: ACETAMINOPHEN 325 MG TABLET 650 MG PO (01:15)
[2024-12-30] MEDS: CEFEPIME HCL 2 GM in 0.9 % SODIUM CHLORIDE Mini-bag 100 ML IVPB (02:59)
[2024-12-30 06:21] LABS: Hematocrit* 26.8 % (37.0-53.0); Hemoglobin* 9.3 gm/dL (13.5-17.5); Immature Granulocytes Abs Auto 0.09 K/uL (0.00-0.30); Immature Granulocytes Pct Auto 0.9 %; Mean Corpuscular HGB Conc 35 gm/dL (32-36); Mean Corpuscular Hemoglobin 29 pg (26-34); Mean Corpuscular Volume 83 fL (80-100); RDW Coefficient of Variation % 14.9 % (11.5-15.5); Red Blood Count* 3.22 m/uL (4.30-5.90); White Blood Count* 10.24 K/uL (4.50-11.00)
[2024-12-30 06:24] LABS: Lymphocytes Absolute Auto 0.70 K/uL (0.90-2.90); Slide Review Reflex No
[2024-12-30 06:26] LABS: Albumin* 2.6 g/dL (3.3-5.0); Chloride* 95 mmol/L (96-114); Potassium* 3.0 mmol/L (3.6-5.1); Sodium* 126 mmol/L (135-149)
[2024-12-30 06:29] LABS: Anion Gap 7 mEq/L (7-15); Blood Urea Nitrogen* 58 mg/dL (7-30); Carbon Dioxide* 24 mmol/L (20-32); Creatinine* 1.7 mg/dL (0.5-1.5); Est. Creatinine Clearance* 35.21; Estimated Glomerular Filt Rate 38 ml/min
[2024-12-30 06:30] LABS: Calcium* 8.2 mg/dL (8.4-10.6); Glucose* 126 mg/dL (60-115)
--- NOTE | 2024-12-30 06:45 | PC.NURSE ---
End of?Shift Note CCU3? ? Patient has been very cooperative and pleasant throughout shift. VSS. Afebrile.?A&Ox4.?Large?blister noted on?right?lower leg. Dressing changed twice throughout shift. Serous, moderate, yellowish drainage noted. Patient?repositioned Q2H. He?states?it is ?very painful? when left left/hip is repositioned.?Hx?of left?JULIA late September. Ceiling lift.?Abrasion noted on right elbow,?mepilex?in place. Right hand elevated?on two pillows.?Saline locked.
[2024-12-30 06:47] LABS: Procalcitonin* 15.20 ng/mL (<0.50)
--- NOTE | 2024-12-30 09:16 | CRLHL7_ITS ---
For Patients: As a result of the Cures Act, medical imaging exams and procedure reports are released immediately into your electronic medical record. You may view this report before your referring provider. If you have questions, please contact your health care provider. Indication: Strep septicemia, IM nail 6 wks ago Technique: Two views of the left femur. Four total images. Comparison: 10/28/2024. Findings: Locked left femoral intramedullary nail. Healing proximal left femoral fracture. No new fracture or malalignment is seen. Degenerative changes of the hip and knee. Sjhl-ky-qmbbesch vascular calcification. Impression: Locked left femoral intramedullary nail. Healing proximal left femoral fracture. No new fracture or malalignment is seen. Dictated by Ryan Gupta MD @ 12/30/2024 10:28:38 AM (Electronically Signed)
--- NOTE | 2024-12-30 09:16 | CRLHL7_ITS ---
For Patients: As a result of the Cures Act, medical imaging exams and procedure reports are released immediately into your electronic medical record. You may view this report before your referring provider. If you have questions, please contact your health care provider. Indication: Strep septicemia, IM nail 6 wks ago Technique: Single view of the pelvis, two views of the left hip. Comparison: 12/08/2024. Findings: Postsurgical changes from left femoral intramedullary nail. Healing left femoral neck fracture is again seen. No new fracture or hardware complication. Moderate left and mild right degenerative changes of the hips. Prostate brachytherapy seeds. Moderate soft tissue swelling along the left hip. Impression: Postsurgical changes from left femoral intramedullary nail. Healing left femoral neck fracture is again seen. No new fracture or hardware complication. Dictated by Ryan Gupta MD @ 12/30/2024 10:25:38 AM (Electronically Signed)
[2024-12-30] MEDS: POTASSIUM BICARB 25 MEQ EFFERVESCENT TAB PO ×6 (10:22→23:58)
[2024-12-30] MEDS: SODIUM CHLORIDE 1 GM TABLET PO ×3 (10:22→18:33)
[2024-12-30] MEDS: SODIUM CHLORIDE 0.9 % (FLUSH) 10 ML SYRINGE 5 ML IVF ×2 (10:22→19:51)
[2024-12-30] MEDS: OMEPRAZOLE 20 MG CAPSULE DR PO (10:22)
--- NOTE | 2024-12-30 10:28 | PC.SOCIAL ---
Addendum entered by JORDAN Mejia 12/30/24 16:28: Discharge planning: fabric worker leader found out from Kenisha at [facility] that the pt will have a $225.00/day co-pay at [facility] with his insurance and there is a prior authorization that his required. [facility] is still reviewing the referral. Social work to follow-up as needed. Original Note: Discharge planning: fabric worker leader sent the pt's referral to Kenisha at [facility] for review. They are reviewing the referral. Social work to follow-up as needed.
[2024-12-30] MEDS: timoloL maleate 0.5 % 1 DROP EYE-LEFT (10:29)
--- NOTE | 2024-12-30 11:35 | PM.ORCN ---
History of Present Illness HPI Time Seen by Provider: : Date Seen: 12/30/24 Consult date: 12/30/24 Requesting physician: Matilda Cameron Chief complaint: Weakness, chest tightness Narrative: Eben is an 89-year-old male with history of CHF, hypertension, venous insufficiency, anemia, chronic kidney disease, thrombocytopenia who presented with sepsis 12/27/2024 due to streptococcal bacteremia from cellulitis of the right hand and right lower extremity. Eben presented to the hospital after sliding out of his recliner onto the floor of his home. His called his son who came and also could not get him off the floor. Paramedics were called and able to get him off the floor but he was confused. He describes left lateral thigh pain. States his left thigh/hip area hurts worse than his right hand or right leg. He has been treated with cefepime and vancomycin. Vancomycin is now discontinued due to MRSA swab being negative and cultures growing out strep. Awaiting sensitivities and evaluating with therapies. Review of Systems Narrative: Patient denies nausea, vomiting, fever, chills, chest pain, shortness of breath PFSH [facility] Medical History (Updated 12/29/24 @ 17:50 by Matilda Cameron MD) Glaucoma ?H40.9 - Unspecified glaucoma (ICD-10) Venous insufficiency (12/09/19) ?I87.2 - Venous insufficiency (chronic) (peripheral) (ICD-10) Osteoarthritis (01/20/10) ?M19.90 - Unspecified osteoarthritis, unspecified site (ICD-10) Obesity (BMI 30-39.9) (01/31/18) ?E66.9 - Obesity, unspecified (ICD-10) Malignant neoplasm of prostate (01/18/11) ?C61 - Malignant neoplasm of prostate (ICD-10) Hyperlipidemia, unspecified (02/02/20) ?E78.5 - Hyperlipidemia, unspecified (ICD-10) Essential hypertension (08/03/21) ?I10 - Essential (primary) hypertension (ICD-10) Esophageal reflux disease (10/22/12) ?K21.9 - Gastro-esophageal reflux disease without esophagitis (ICD-10) BPH (benign prostatic hyperplasia) (01/20/10) ?N40.0 - Benign prostatic hyperplasia without lower urinary tract symptoms (ICD-10) Surgical History (Updated 12/30/24 @ 11:59 by Radha Etienne PA-C) History of open reduction and internal fixation (ORIF) procedure (10/28/24) ?Z98.890 - Other specified postprocedural states (ICD-10) 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 lives in [place] with his who has dementia and physical limitations. 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 What is your current living situation?: I presently have a place to live Problems where you live: no known problems Problems where you live details: n/a In the past 12 months, utilities in danger of being shut off: no In past 12 months, lack of transportation kept you from medical appts, meetings, work, or getting things needed for daily living: no In the past 12 mos, have been you worried that your food would run out before you had money to buy more?: never true In the past 12 mos, the food you bought just didn't last and you didn't have money to buy more?: never true Highest level of school completed/degree received: high school graduate Smoking Status: Former smoker What tobacco products do you use: cigarettes Smoking quit date/years: >15 years ago Do you use any of these nicotine containing products: None Second hand tobacco smoke exposure: No How often do you have a drink containing alcohol: never AUDIT-C Alcohol total score: 0 Non-prescribed substance use: denies use Caffeine: Yes How often does anyone, including family, friends and others, physically hurt you: never How often does anyone, including family, friends and others, insult or talk down to you: never How often does anyone, including family, friends and others, threaten you with harm: never How often does anyone, including family, friends and others, scream or curse at you: never service: Yes Meds Home Medications and Allergies Home Medications ?Medication ?Instructions ?Recorded ?Confirmed ?Type hydrochlorothiazide 25 mg tablet 25 mg PO DAILY 10/27/24 12/28/24 History latanoprost 0.005 % eye drops 1 drp ophthalmic (eye) QPM 10/27/24 12/28/24 History omeprazole 20 mg capsule,delayed 20 mg PO DAILY 10/27/24 12/28/24 History release pravastatin 20 mg tablet 20 mg PO HS 10/27/24 12/28/24 History timolol maleate 0.5 % eye drops 1 drp ophthalmic (eye-left) QAM 10/27/24 12/28/24 History tamsulosin 0.4 mg capsule 0.4 mg PO QHS #30 caps 10/31/24 12/28/24 Rx Allergies Allergy/AdvReac Type Severity Reaction Status Date / Time No Known Drug Allergies Allergy Verified 12/27/24 14:41 Ortho Exam Narrative Exam Narrative: Alert. Patient is in no acute distress. Converses without labored breathing. Hearing is grossly intact. ceiling lift. Poor historian likely due to confusion. Examination of the left lower extremity shows the incisions are healed. There is no erythema or warmth or sign of infection. No fluctuance. No pain with palpation about the hip or the thigh area. With gentle log-rolling he has significant pain about his left thigh/hip area. Palpation of the left knee, no palpable effusion. No pain or erythema about the knee. Not able to straight leg raise. He cannot actively bend his knee. Not able to actively flex his hip. Full capillary refill less than 2 seconds. Any movement of the leg passively causes left lateral thigh pain. He can feel me touching his thigh. Mild edema about the hip is palpable. Examination of the right lower leg shows very large draining blister with surrounding cellulitis. Swelling and cellulitis of the right hand as well. Const Vital Signs, click to edit/add: Vital Signs - 24 hr 12/29/24 11:50 12/29/24 12:30 12/29/24 13:50 Temperature Pulse Rate 73 Pulse Rate [Pulse Oximeter] 77 77 Respiratory Rate 18 Blood Pressure [Left Arm] 106/58 L 125/65 Pulse Oximetry 95 94 Oxygen Delivery Method Room Air Room Air 12/29/24 15:00 12/29/24 15:12/29/24 15:00 Temperature Pulse Rate 73 Pulse Rate [Pulse Oximeter] Respiratory Rate Blood Pressure [Left Arm] Pulse Oximetry 94 94 Oxygen Delivery Method Room Air 12/29/24 15:00 12/29/24 15:50 12/29/24 17:50 Temperature 98.0 F Pulse Rate Pulse Rate [Pulse Oximeter] 79 79 86 Respiratory Rate 24 24 26 H Blood Pressure [Left Arm] 137/73 156/69 H Pulse Oximetry 94 93 Oxygen Delivery Method Room Air Room Air 12/29/24 19:45 12/29/24 22:34 12/29/24 22:34 Temperature 99.8 F H Pulse Rate Pulse Rate [Pulse Oximeter] 86 Respiratory Rate 24 20 Blood Pressure [Left Arm] 135/62 Pulse Oximetry 94 95 95 Oxygen Delivery Method Room Air Room Air 12/29/24 22:34 12/29/24 22:57 12/29/24 23:00 Temperature 98.8 F Pulse Rate 78 Pulse Rate [Pulse Oximeter] 79 86 Respiratory Rate 20 Blood Pressure [Left Arm] 116/54 L Pulse Oximetry 95 Oxygen Delivery Method Room Air 12/30/24 03:00 12/30/24 07:00 12/30/24 07:00 Temperature 98.7 F Pulse Rate 83 Pulse Rate [Pulse Oximeter] 70 73 Respiratory Rate 18 18 Blood Pressure [Left Arm] 110/52 L 126/64 Pulse Oximetry 94 90 Oxygen Delivery Method Room Air Room Air 12/30/24 07:00 12/30/24 07:00 Temperature Pulse Rate Pulse Rate [Pulse Oximeter] Respiratory Rate Blood Pressure [Left Arm] Pulse Oximetry 90 90 Oxygen Delivery Method Room Air Documenting provider has reviewed patient's vital signs: yes Results Labs Labs: Laboratory Results - last 48 hr 12/29/24 12/29/24 12/29/24 05:59 07:13 14:58 WBC 8.71 RBC 3.32 L Hgb 9.7 L Hct 28.1 L MCV 85 MCH 29 MCHC 35 RDW Coeff of Marita 14.9 Plt Count 90 L Neut % (Auto) 87.5 H Lymph % (Auto) 7.1 L [place] % (Auto) 4.7 Eos % (Auto) 0.5 Baso % (Auto) 0.0 Neut # (Auto) 7.60 H Lymph # (Auto) 0.60 L [place] # (Auto) 0.40 Eos # (Auto) 0.04 Baso # (Auto) 0.00 Abs Immat Gran (auto) 0.02 Imm/Tot Granulo (auto) 0.2 Sodium 127 L 126 L Potassium 2.7 L* 3.4 L Chloride 94 L 95 L Carbon Dioxide 23 22 Anion Gap 10 9 BUN 56 H 58 H Creatinine 1.7 H 1.6 H Estimated Creat Clear 35.21 37.41 Estimated GFR 38 41 Glucose 113 183 H Calcium 8.0 L 8.2 L Phosphorus 3.3 Magnesium 1.7 C-Reactive Protein 43.9 H Albumin 2.7 L Procalcitonin 23.50 H Lab Acknowledgement Test Added 12/30/24 05:52 WBC 10.24 RBC 3.22 L Hgb 9.3 L Hct 26.8 L MCV 83 MCH 29 MCHC 35 RDW Coeff of Marita 14.9 Plt Count 106 L Neut % (Auto) 86.1 H Lymph % (Auto) 6.7 L [place] % (Auto) 5.4 Eos % (Auto) 0.9 Baso % (Auto) 0.0 Neut # (Auto) 8.80 H Lymph # (Auto) 0.70 L [place] # (Auto) 0.60 Eos # (Auto) 0.09 Baso # (Auto) 0.00 Abs Immat Gran (auto) 0.09 Imm/Tot Granulo (auto) 0.9 Sodium 126 L Potassium 3.0 L Chloride 95 L Carbon Dioxide 24 Anion Gap 7 BUN 58 H Creatinine 1.7 H Estimated Creat Clear 35.21 Estimated GFR 38 Glucose 126 H Calcium 8.2 L Phosphorus 2.6 Magnesium C-Reactive Protein 31.7 H Albumin 2.6 L Procalcitonin 15.20 H Lab Acknowledgement Diagnostic results Additional Comments: 12/30/2024 single-view pelvis, two views left hip shows Postsurgical changes from left femoral intramedullary nail. Healing left femoral neck fracture is again seen. No new fracture or hardware complication. 12/30/2024 two views of left femur so, 4 total images shows Locked left femoral intramedullary nail. Healing proximal left femoral fracture. No new fracture or malalignment is seen. Bilateral lower extremity ultrasound, venous duplex shows No sonographic evidence of DVT within either lower extremity, however evaluation of the left calf veins is limited on this examination. 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 No known MRSA hx. MRSA pending. Bulla noted - likely a staph infection. -high likelihood of bacteremia. B/C pending. -broad spectrum initiated with Vanc/Cefepime. -LR for fluid bolus in this patient with SULAIMAN, mild CHF and edema but intravascularly dry (30cc/kg is not appropriate given his CHF; will do 250-500cc an hour as frequent reassessments -monitor urine output (Bhatia), blood pressure, pulse, lactate, respiratory status. Admitted to CCU. -sepsis criteria: temp, HR, RR, WBC count. Lactate >2, creatinine almost 2 and platelets 105 -also given his INR of 1.5 and DDimer elevation - likely due to endothelial activation and cytokine storm from infection. - 12/28 Lactate normalized. BP stable, WBC normalized, HR and Tachypnea improving. MS improving. MRSA swab from ruptured bulla today. BCx2 G+ cocci in chains. Continue vanco/cefepime. - 12/29 Sepsis resolved. Status: Acute Total time spent: Total time spent is greater than 50% in coordination of care (as documented) at patient's floor/unit and/or counseling patient: (2) Gram positive bacterial infection: Problem comment: - As above, continue vanco/cefepime - 12/29 Strep bacteremia. TTE no vegetation. MRSA swab neg. Await sensitivities, may need ID input, will likely need outpatient PILAR. Continue cefepime. D/c vanco. Status: Acute Total time spent: Total time spent is greater than 50% in coordination of care (as documented) at patient's floor/unit and/or counseling patient: (3) Myocardial strain: Problem comment: -initial trop is 0.08, repeat 0.10. will follow. No acute ECG changes or symptoms of chest pain/heaviness. -EKG reviewed and compared to previous. -324mg aspirin administered -treat the sepsis - 12/28 trop improving. Asymptomatic. Status: Acute Total time spent: Total time spent is greater than 50% in coordination of care (as documented) at patient's floor/unit and/or counseling patient: (4) Cellulitis of right lower leg: Problem comment: -no wound cultures yet -venous duplex neg -broad spectrum antibiotics -treat the sepsis -mrsa swab sent - 12/28 MRSA swab pending. Continue vanco/cefepime. - 12/29 Treat as above in G+ bacterial infection Status: Acute Total time spent: Total time spent is greater than 50% in coordination of care (as documented) at patient's floor/unit and/or counseling patient: (5) CHF with unknown LVEF: Problem comment: -last echo in 2021 - normal LVEF (EF67%) with mild . -rec'd lasix in the ED but first priority is the sepsis, intravascular depletion and avoiding end organ assault -we can catch up diuresis once sepsis has resolved - 12/28 No exacerbation. EF lower on today's ECHO, around low 40's. Monitor, at risk for acute pulmonary edema. - 12/29 no signs of exacerbation. Stable, chronic HFpEF (formal read EF is 50-55%) Status: Acute Total time spent: Total time spent is greater than 50% in coordination of care (as documented) at patient's floor/unit and/or counseling patient: (6) Delirium: Problem comment: -intermittent, mild. He's confused tonight on timing and duration of symptoms. -treat the sepsis RESOLVED Status: Acute Total time spent: Total time spent is greater than 50% in coordination of care (as documented) at patient's floor/unit and/or counseling patient: (7) Essential hypertension: Problem comment: -holding home meds - 12/28 no hypertension yet, continue to hold antihypertensive medications, monitor - 12/29 BP still not elevated, continue to monitor and hold antihypertensive medications Status: Acute Total time spent: Total time spent is greater than 50% in coordination of care (as documented) at patient's floor/unit and/or counseling patient: (8) Venous insufficiency: Problem comment: -chronic with stasis changes -ordered ed[place]ear Status: Acute Total time spent: Total time spent is greater than 50% in coordination of care (as documented) at patient's floor/unit and/or counseling patient: (9) Anemia: Problem comment: Hemoglobin January 2023 was 13.5. ABLA this summer with hip fracture; rec'd one unit PRBCS. abhishek was 7.9. presentation today 10.7 - 12/28 stable Status: Acute Total time spent: Total time spent is greater than 50% in coordination of care (as documented) at patient's floor/unit and/or counseling patient: (10) BPH (benign prostatic hyperplasia): Problem comment: -bhatia placed Status: Chronic Total time spent: Total time spent is greater than 50% in coordination of care (as documented) at patient's floor/unit and/or counseling patient: (11) Chronic kidney disease: Problem comment: Stage IIIB, baseline creatinine 1.4-1.6. Today's creatinine 1.7 which is slightly down from admission at 1.8. Monitor. Status: Acute Total time spent: Total time spent is greater than 50% in coordination of care (as documented) at patient's floor/unit and/or counseling patient: (12) Thrombocytopenia: Problem comment: Thrombocytopenia present since September, platelets lower today than they have been, likely due to sepsis, but okay to still give enoxaparin, consider holding this if platelets get much lower. Status: Acute Total time spent: Total time spent is greater than 50% in coordination of care (as documented) at patient's floor/unit and/or counseling patient: (13) History of open reduction and internal fixation (ORIF) procedure: Problem comment: Left hip fracture ORIF (10/28/2024, Dr. Mcmanus) Status: Acute Assessment and Plan: Left leg pain. Left femoral intramedullary nail appears well placed and well-fixed. Significant bony callus formation about the fracture. Healing appropriately. No new fractures or malalignment is noted. MRI scan is scheduled of the left hip and prosthesis to evaluate for infection. If this is negative, his severe end-stage left knee osteoarthritis could be a source of his thigh pain. Orthopedics will follow along. He has generalized weakness. Currently he is ceiling lift. Note, dictation performed with voice recognition, and as a result, wrong word or sound like substitutions may have occurred. There may be areas in the script that have gone undetected. Please consider this when interpreting information found in the chart.
[2024-12-30] MEDS: FUROSEMIDE 10 MG/ML inj 40 MG IVP ×2 (14:55→20:33)
[2024-12-30] MEDS: cefTRIAXone 2 GM in 0.9 % SODIUM CHLORIDE Mini-bag 100 ML IVPB (14:56)
--- NOTE | 2024-12-30 15:00 | PM.IMPN1 ---
Assessment and Plan Assessment and plan (1) Gram positive bacterial infection: Problem comment: - As above, continue vanco/cefepime - 12/29 Strep bacteremia. TTE no vegetation. MRSA swab neg. Await sensitivities, may need ID input, will likely need outpatient PILAR. Continue cefepime. D/c vanco. - 12/30 Mello sensitive group C strep infection of hand, legs and bacteremia, was possibly toxic shock syndrome. Discussed with ID (Dr. Kely Carlos) over the phone today who recommended obtaining daily blood cultures until these are neg. We discussed that he had a TTE this hospital stay, she did not think he needed a PILAR. She recommended ceftriaxone 2 g IV daily to continue for 14 day after blood cultures become neg. Status: Acute (2) Left hip pain: Problem comment: - Recent IM nail for hip fracture. - 12/30 Now having pain. Concerned for the possibility of infection of the hardware (hip joint was not involved in fracture or recent surgery/hardware). Ortho consult. XR left hip above. Obtain MRI left hip (this had to be put on hold today due to wheezing and inability to lay flat for almost an hour today). Status: Acute (3) Cellulitis of right lower leg: Problem comment: -venous duplex neg -broad spectrum antibiotics -treat the sepsis -mrsa swab neg - 12/28 MRSA swab pending. Continue vanco/cefepime. - 12/29 Treat as above in G+ bacterial infection - 12/30 Wound culture G+ cocci #1 and #2 Status: Acute (4) CHF with unknown LVEF: Problem comment: -last echo in 2021 - normal LVEF (EF67%) with mild . -rec'd lasix in the ED but first priority is the sepsis, intravascular depletion and avoiding end organ assault -we can catch up diuresis once sepsis has resolved - 12/28 No exacerbation. EF lower on today's ECHO, around low 40's. Monitor, at risk for acute pulmonary edema. - 12/29 no signs of exacerbation. Stable, chronic HFpEF (formal read EF is 50-55%) - 12/30 Wheezing this afternoon. No hypoxia. Give one dose IV lasix. Continuous pulse ox. Recheck labs in am. Status: Acute (5) Essential hypertension: Problem comment: -holding home meds - 12/28 no hypertension yet, continue to hold antihypertensive medications, monitor - 12/29 BP still not elevated, continue to monitor and hold antihypertensive medications - 12/30 no BP elevation. Continue to monitor and hold antihypertensive medications Status: Acute (6) Venous insufficiency: Problem comment: -chronic with stasis changes -ordered edemawear Status: Acute (7) Anemia: Problem comment: Hemoglobin January 2023 was 13.5. ABLA this summer with hip fracture; rec'd one unit PRBCS. abhishek was 7.9. presentation today 10.7 - 12/28 stable - 12/30 slow downward trend. No obvious bleeding. Plts low, but stable. Hold enoxaparin. Monitor. Status: Acute (8) BPH (benign prostatic hyperplasia): Problem comment: -bhatia placed Status: Chronic (9) Chronic kidney disease: Problem comment: Stage IIIB, baseline creatinine 1.4-1.6. Today's creatinine is stable at 1.7 which is slightly down from admission at 1.8. Monitor. Status: Acute (10) Thrombocytopenia: Problem comment: Thrombocytopenia present since September, platelets lower today than they have been, likely due to sepsis. Holding enoxaparin due to downward trending hemoglobin Status: Acute (11) Sepsis: Problem comment: -source is right leg. No known MRSA hx. MRSA pending. Bulla noted - likely a staph infection. -high likelihood of bacteremia. B/C pending. -broad spectrum initiated with Vanc/Cefepime. -LR for fluid bolus in this patient with SULAIMAN, mild CHF and edema but intravascularly dry (30cc/kg is not appropriate given his CHF; will do 250-500cc an hour as frequent reassessments -monitor urine output (Bhatia), blood pressure, pulse, lactate, respiratory status. Admitted to CCU. -sepsis criteria: temp, HR, RR, WBC count. Lactate >2, creatinine almost 2 and platelets 105 -also given his INR of 1.5 and DDimer elevation - likely due to endothelial activation and cytokine storm from infection. - 12/28 Lactate normalized. BP stable, WBC normalized, HR and Tachypnea improving. MS improving. MRSA swab from ruptured bulla today. BCx2 G+ cocci in chains. Continue vanco/cefepime. - 12/29 Sepsis resolved. Status: Acute (12) Myocardial strain: Problem comment: -initial trop is 0.08, repeat 0.10. will follow. No acute ECG changes or symptoms of chest pain/heaviness. -EKG reviewed and compared to previous. -324mg aspirin administered -treat the sepsis - 12/28 trop improving. Asymptomatic. Status: Acute (13) Delirium: Problem comment: -intermittent, mild. He's confused tonight on timing and duration of symptoms. -treat the sepsis RESOLVED Status: Acute Plan 89-year-old male with history of CHF, hypertension, venous insufficiency, anemia, chronic kidney disease, thrombocytopenia who presented with sepsis due to streptococcal bacteremia from cellulitis of the right hand and lower extremity. He has been treated with cefepime and vancomycin. Vancomycin is now discontinued due to MRSA swab being negative and cultures growing out strep. Awaiting sensitivities and evaluating with therapies. Will likely need 2-3 more days in the hospital while we await sensitivities and determine discharge plan. Total Time Spent Total Time Spent: Today I spent 70 minutes seeing the patient, discussing with family, discussing with ortho, reviewing Expanse and EPIC notes/diagnostics/labs, discussing the care plan with our care team that includes social work, PT/OT, pharmacy, RT, intermediate and documenting my impressions and plan in the medical record. Subjective Time Seen by Provider: 08:41 Date Seen: 12/30/24 Interval history: Eben feels much better today. His and [id number] also note how much better his arm and legs look. He c/o persistent left hip pain. This afternoon his nurse told me she now hears him wheezing. Exam Narrative: Exam Narrative: General: No acute distress. Awake, alert, oriented. Sitting in the bedside chair. No pallor. No jaundice. Oropharynx: Clear. Mucous membranes moist. Cardiovascular: Regular rate and rhythm. No murmurs, gallops, or rubs. Respiratory: Clear to auscultation bilateral, no crackles, no tightness or wheezing. Abdomen: Bowel sounds present. Soft, nondistended, nontender. Extremities: R dorsum of hand remains edematous, no longer erythematous. RLE less edematous with mild warmth and [place]ingo erythema, continues to recede from lines drawn. Const: Vital Signs, click to edit/add: Vital Signs - 24 hr 12/29/24 15:50 12/29/24 17:50 12/29/24 19:45 Temperature 98.0 F 99.8 F H Pulse Rate Pulse Rate [Pulse Oximeter] 79 86 86 Respiratory Rate 24 26 H 24 Blood Pressure [Le ft Arm] 137/73 156/69 H 135/62 Pulse Oximetry 94 93 94 [facility] Room Air 12/29/24 22:34 12/29/24 22:34 12/29/24 22:34 Temperature 98.8 F Pulse Rate Pulse Rate [Pulse Oximeter] 79 Respiratory Rate 20 20 Blood Pressure [Le ft Arm] 116/54 L Pulse Oximetry 95 95 95 [facility] Room Air 12/29/24 22:57 12/29/24 23:00 12/30/24 03:00 Temperature 98.7 F Pulse Rate 78 Pulse Rate [Pulse Oximeter] 86 70 Respiratory Rate 18 Blood Pressure [Le ft Arm] 110/52 L Pulse Oximetry 94 Oxygen Delivery [facility] Room Air 12/30/24 07:00 12/30/24 07:00 12/30/24 07:00 Temperature Pulse Rate 83 Pulse Rate [Pulse Oximeter] 73 Respiratory Rate 18 Blood Pressure [Le ft Arm] 126/64 Pulse Oximetry 90 90 Oxygen Delivery [facility] Room Air 12/30/24 07:00 12/30/24 11:00 Temperature Pulse Rate Pulse Rate [Pulse Oximeter] 76 Respiratory Rate 18 Blood Pressure [Le ft Arm] 136/69 Pulse Oximetry 90 95 Oxygen Delivery [facility] Room Air Room Air Labs Labs: Laboratory Results - last 24 hr 12/29/24 12/30/24 14:58 05:52 WBC 10.24 RBC 3.22 L Hgb 9.3 L Hct 26.8 L MCV 83 MCH 29 MCHC 35 RDW Coeff of Marita 14.9 Plt Count 106 L Neut % (Auto) 86.1 H Lymph % (Auto) 6.7 L Hand % (Auto) 5.4 Eos % (Auto) 0.9 Baso % (Auto) 0.0 Neut # (Auto) 8.80 H Lymph # (Auto) 0.70 L Hand # (Auto) 0.60 Eos # (Auto) 0.09 Baso # (Auto) 0.00 Abs Immat Gran (auto) 0.09 Imm/Tot Granulo (auto) 0.9 Sodium 126 L 126 L Potassium 3.4 L 3.0 L Chloride 95 L 95 L Carbon Dioxide 22 24 Anion Gap 9 7 BUN 58 H 58 H Creatinine 1.6 H 1.7 H Estimated Creat Clear 37.41 35.21 Estimated GFR 41 38 Glucose 183 H 126 H Calcium 8.2 L 8.2 L Phosphorus 2.6 C-Reactive Protein 31.7 H Albumin 2.6 L Procalcitonin 15.20 H Ordering Physician: Matilda Cameron M.D. Date of Service: 12/30/24 Procedure(s): XR femur LT 2V Accession Number(s): [id number] cc: Matilda Cameron M.D.; Diane Sharp M.D.~ For Patients: As a result of the Cures Act, medical imaging exams and procedure reports are released immediately into your electronic medical record. You may view this report before your referring provider. If you have questions, please contact your health care provider. Indication: Strep septicemia, IM nail 6 wks ago Technique: Two views of the left femur. Four total images. Comparison: 10/28/2024. Findings: Locked left femoral intramedullary nail. Healing proximal left femoral fracture. No new fracture or malalignment is seen. Degenerative changes of the hip and knee. [id number] vascular calcification. Impression: Locked left femoral intramedullary nail. Healing proximal left femoral fracture. No new fracture or malalignment is seen. Dictated by Ryan Gupta MD @ 12/30/2024 10:28:38 AM (Electronically Signed) Ordering Physician: Matilda Cameron M.D. Date of Service: 12/30/24 Procedure(s): XR hip LT min 2V Accession Number(s): [id number] cc: Matilda Cameron M.D.; Diane Sharp M.D.~ For Patients: As a result of the Cures Act, medical imaging exams and procedure reports are released immediately into your electronic medical record. You may view this report before your referring provider. If you have questions, please contact your health care provider. Indication: Strep septicemia, IM nail 6 wks ago Technique: Single view of the pelvis, two views of the left hip. Comparison: 12/08/2024. Findings: Postsurgical changes from left femoral intramedullary nail. Healing left femoral neck fracture is again seen. No new fracture or hardware complication. Moderate left and mild right degenerative changes of the hips. Prostate brachytherapy seeds. Moderate soft tissue swelling along the left hip. Impression: Postsurgical changes from left femoral intramedullary nail. Healing left femoral neck fracture is again seen. No new fracture or hardware complication. Dictated by Ryan Gupta MD @ 12/30/2024 10:25:38 AM (Electronically Signed)
[2024-12-30] MEDS: LATANOPROST 0.005% OPHTH 1 DROP EYE-BOTH (18:33)
[2024-12-30] MEDS: LIDOCAINE 5% PATCH 1 PATCH TRANSDERMA (18:33)
--- NOTE | 2024-12-30 19:39 | PC.NURSE ---
Pt is pleasant to care for. VSS. Reports pain to left hip. Pt continues to have moderate swelling to the lower extremities and right hand. This afternoon pt did have increased SOB and expiratory wheezes, provider notified, see orders. Pt is a heavy two assist with ceiling lift. Adequate appetite. Pt is resting comfortably in bed at this time.
[2024-12-31] VITALS (11 sets, daily range): BP systolic 115–148; BP diastolic 54–71; PULSE 71–93; RESP 16–30; TEMP 36.9–38.2; O2SAT 88–91
[2024-12-31] MEDS: POTASSIUM BICARB 25 MEQ EFFERVESCENT TAB PO ×3 (02:00→21:48)
[2024-12-31] MEDS: FUROSEMIDE 10 MG/ML inj 40 MG IVP ×3 (04:22→19:56)
[2024-12-31 06:27] LABS: Hematocrit* 29.1 % (37.0-53.0); Hemoglobin* 10.2 gm/dL (13.5-17.5); Immature Granulocytes Pct Auto 6.7 %; Mean Corpuscular HGB Conc 35 gm/dL (32-36); Mean Corpuscular Hemoglobin 29 pg (26-34); Mean Corpuscular Volume 82 fL (80-100); RDW Coefficient of Variation % 15.0 % (11.5-15.5); Red Blood Count* 3.54 m/uL (4.30-5.90); White Blood Count* 13.82 K/uL (4.50-11.00)
[2024-12-31 06:29] LABS: Immature Granulocytes Abs Auto 0.90 K/uL (0.00-0.30); Lymphocytes Absolute Auto 0.90 K/uL (0.90-2.90)
--- NOTE | 2024-12-31 06:38 | PC.NURSE ---
patient is alert and pleasant. Has fine crackles and SOB when talking, provider updated see EMAR. Pt on room air. VSS, dressing changed and is c/d/i. bhatia in place, pt is 2 assist w/ceiling lift.
[2024-12-31 06:50] LABS: Chloride* 93 mmol/L (96-114); Sodium* 127 mmol/L (135-149)
[2024-12-31 06:51] LABS: Albumin* 2.9 g/dL (3.3-5.0); Potassium* 3.4 mmol/L (3.6-5.1)
[2024-12-31 06:54] LABS: Anion Gap 5 mEq/L (7-15); Blood Urea Nitrogen* 61 mg/dL (7-30); Calcium* 8.5 mg/dL (8.4-10.6); Carbon Dioxide* 29 mmol/L (20-32); Creatinine* 1.8 mg/dL (0.5-1.5); Est. Creatinine Clearance* 33.25; Estimated Glomerular Filt Rate 36 ml/min; Glucose* 153 mg/dL (60-115)
[2024-12-31 07:08] LABS: Slide Review Reflex Yes
[2024-12-31 07:10] LABS: Procalcitonin* 10.90 ng/mL (<0.50)
--- NOTE | 2024-12-31 07:24 | CRLHL7_ITS ---
For Patients: As a result of the Century Cures Act, medical imaging exams and procedure reports are released immediately into your electronic medical record. You may view this report before your referring provider. If you have questions, please contact your health care provider. INDICATION: Wheezing, shortness of breath TECHNIQUE: Chest 1 view, 2 images. COMPARISON: Chest radiograph and chest CT 12/27/2024 FINDINGS: Cardiovasculature and mediastinum: Heart size is normal. Unremarkable mediastinum. Lungs and pleural spaces: Similar prominent interstitial markings, may be secondary to low lung volumes. No consolidative opacity. No pleural effusion. No pneumothorax. Bones and soft tissues: No significant findings. IMPRESSION: Similar prominent interstitial markings, may be secondary to low lung volumes or mild pulmonary edema. No consolidative opacity. No significant change compared to prior chest radiograph Dictated by Mariela Bridges MD @ 12/31/2024 7:57:17 AM (Electronically Signed)
--- NOTE | 2024-12-31 07:29 | PM.IMPN1 ---
Assessment and Plan Assessment and plan (1) Gram positive bacterial infection: Problem comment: - As above, continue vanco/cefepime - 12/29 Strep bacteremia. TTE no vegetation. MRSA swab neg. Await sensitivities, may need ID input, will likely need outpatient PILAR. Continue cefepime. D/c vanco. - 12/30 Mello sensitive group C strep infection of hand, legs and bacteremia, was possibly toxic shock syndrome. Discussed with ID (Dr. Kely Carlos) over the phone today who recommended obtaining daily blood cultures until these are neg. We discussed that he had a TTE this hospital stay, she did not think he needed a PILAR. She recommended ceftriaxone 2 g IV daily to continue for 14 day after blood cultures become neg. - 12/31 Bl Cx on 12/30 still negative. +ve murmer. outpatient PILAR D/W pt and family. Status: Acute (2) Acute exacerbation of chronic heart failure: Problem comment: -last echo in 2021 - normal LVEF (EF67%) with mild . -rec'd lasix in the ED but first priority is the sepsis, intravascular depletion and avoiding end organ assault -we can catch up diuresis once sepsis has resolved - 12/28 No exacerbation. EF lower on today's ECHO, around low 40's. Monitor, at risk for acute pulmonary edema. - 12/29 no signs of exacerbation. Stable, chronic HFpEF (formal read EF is 50-55%) - 12/30 Wheezing this afternoon. No hypoxia. Give one dose IV lasix. Continuous pulse ox. Recheck labs in am. - 12/31: Increase freq of lasix 40 IV to TID. CXR today; congested. Status: Acute (3) Left hip pain: Problem comment: - Recent IM nail for hip fracture. - 12/30 Now having pain. Concerned for the possibility of infection of the hardware (hip joint was not involved in fracture or recent surgery/hardware). Ortho consult. XR left hip above. Obtain MRI left hip (this had to be put on hold today due to wheezing and inability to lay flat for almost an hour today). - 12/31: He c/o left hip pain, but was unable to do MRI d/t orthopnea. Started lasix IV 40 x 8h . Status: Acute (4) Cellulitis of right lower leg: Problem comment: -venous duplex neg -broad spectrum antibiotics -treat the sepsis -mrsa swab neg - 12/28 MRSA swab pending. Continue vanco/cefepime. - 12/29 Treat as above in G+ bacterial infection - 12/30 Wound culture G+ cocci #1 and #2 - 12/31: slight improvement. MRSA screen -ve Status: Acute (5) Essential hypertension: Problem comment: -holding home meds - 12/28 no hypertension yet, continue to hold antihypertensive medications, monitor - 12/29 BP still not elevated, continue to monitor and hold antihypertensive medications - 12/30 no BP elevation. Continue to monitor and hold antihypertensive medications Status: Acute (6) Venous insufficiency: Problem comment: -chronic with stasis changes -ordered edemawear Status: Acute (7) Anemia: Problem comment: Hemoglobin January 2023 was 13.5. ABLA this summer with hip fracture; rec'd one unit PRBCS. abhishek was 7.9. presentation today 10.7 - 12/28 stable - 12/30 slow downward trend. No obvious bleeding. Plts low, but stable. Hold enoxaparin. Monitor. Status: Acute (8) BPH (benign prostatic hyperplasia): Problem comment: -bhatia placed Status: Chronic (9) Chronic kidney disease: Problem comment: Stage IIIB, baseline creatinine 1.4-1.6. Today's creatinine is stable at 1.7 which is slightly down from admission at 1.8. Monitor. Status: Acute (10) Thrombocytopenia: Problem comment: Thrombocytopenia present since September, platelets lower today than they have been, likely due to sepsis. Holding enoxaparin due to downward trending hemoglobin Status: Acute (11) Sepsis: Problem comment: -source is right leg. No known MRSA hx. MRSA pending. Bulla noted - likely a staph infection. -high likelihood of bacteremia. B/C pending. -broad spectrum initiated with Vanc/Cefepime. -LR for fluid bolus in this patient with SULAIMAN, mild CHF and edema but intravascularly dry (30cc/kg is not appropriate given his CHF; will do 250-500cc an hour as frequent reassessments -monitor urine output (Bhatia), blood pressure, pulse, lactate, respiratory status. Admitted to CCU. -sepsis criteria: temp, HR, RR, WBC count. Lactate >2, creatinine almost 2 and platelets 105 -also given his INR of 1.5 and DDimer elevation - likely due to endothelial activation and cytokine storm from infection. - 12/28 Lactate normalized. BP stable, WBC normalized, HR and Tachypnea improving. MS improving. MRSA swab from ruptured bulla today. BCx2 G+ cocci in chains. Continue vanco/cefepime. - 12/29 Sepsis resolved. Status: Acute (12) Myocardial strain: Problem comment: -initial trop is 0.08, repeat 0.10. will follow. No acute ECG changes or symptoms of chest pain/heaviness. -EKG reviewed and compared to previous. -324mg aspirin administered -treat the sepsis - 12/28 trop improving. Asymptomatic. Status: Acute (13) Delirium: Problem comment: -intermittent, mild. He's confused tonight on timing and duration of symptoms. -treat the sepsis RESOLVED Status: Acute Total Time Spent Total Time Spent: Time spent: Today I spent 50 minutes seeing the patient, discussing the patient with ER staff, reviewing Expanse and EPIC notes/diagnostics, discussing the care plan with our care time that includes social work, PT/OT, pharmacy, RT, long term and documenting my impressions and plan in the medical record. Subjective Date Seen: 12/31/24 Interval history: Patient has been wheezing overnight. Started lasix IV 40 x 8h . He c/o left hip pain, but was unable to do MRI d/t orthopnea. Exam Narrative: Exam Narrative: Physical exam GENERAL: Pt looks tired. HEAD AND NECK: Atraumatic, normocephalic CARDIOVASCULAR: RRR. Normal S1, S2. Positive murmur. RESPIRATORY: Good air entry B/L. +ve wheezes & rhonchi. GASTROINTESTINAL: Not distended, not tender to palpation. MSK : RLE w/ edema & erythema, but continues to recede from lines drawn. Rt hand edema. NEUROLOGY: Alert, awake. Normal speech. Const: Vital Signs, click to edit/add: Vital Signs - 24 hr 12/30/24 11:00 12/30/24 15:12/30/24 15:00 Temperature 98.0 F Pulse Rate Pulse Rate [Pulse Oximeter] 76 82 Respiratory Rate 18 26 H Blood Pressure [Le ft Arm] 136/69 153/78 H Pulse Oximetry 95 95 95 Oxygen Delivery Me thod Room Air Room Air Oxygen Flow Rate 12/30/24 15:00 12/30/24 15:00 12/30/24 15:00 Temperature Pulse Rate 89 Pulse Rate [Pulse Oximeter] 82 Respiratory Rate Blood Pressure [Le ft Arm] Pulse Oximetry 95 Oxygen Delivery Me thod Room Air Oxygen Flow Rate 0 12/30/24 19:53 12/30/24 22:17 12/30/24 23:00 Temperature 98.5 F Pulse Rate 92 Pulse Rate [Pulse Oximeter] 88 Respiratory Rate 28 H Blood Pressure [Le ft Arm] 134/68 Pulse Oximetry 92 89 Oxygen Delivery Me thod Room Air Room Air Oxygen Flow Rate 12/30/24 23:00 12/30/24 23:55 12/31/24 03:00 Temperature 98.7 F 98.8 F Pulse Rate Pulse Rate [Pulse Oximeter] 97 89 Respiratory Rate 20 21 Blood Pressure [Le ft Arm] 146/70 H 129/63 Pulse Oximetry 89 89 91 Oxygen Delivery Me thod Room Air Room Air Oxygen Flow Rate Labs Labs: Laboratory Results - last 24 hr 12/31/24 05:58 WBC 13.82 H RBC 3.54 L Hgb 10.2 L Hct 29.1 L MCV 82 MCH 29 MCHC 35 RDW Coeff of Marita 15.0 Plt Count 141 Neut % (Auto) 78.5 H Lymph % (Auto) 6.7 L [place] % (Auto) 7.2 Eos % (Auto) 0.8 Baso % (Auto) 0.1 Neut # (Auto) 10.80 H Lymph # (Auto) 0.90 [place] # (Auto) 1.00 H Eos # (Auto) 0.10 Baso # (Auto) 0.00 Abs Immat Gran (auto) 0.90 H Imm/Tot Granulo (auto) 6.7 Sodium 127 L Potassium 3.4 L Chloride 93 L Carbon Dioxide 29 Anion Gap 5 L BUN 61 H Creatinine 1.8 H Estimated Creat Clear 33.25 Estimated GFR 36 Glucose 153 H Calcium 8.5 Phosphorus 2.2 L Albumin 2.9 L Procalcitonin 10.90 H Imaging Chest x-ray: Attestation: I have reviewed the pertinent imaging results. Radiologist's impression: INDICATION: Wheezing, shortness of breath TECHNIQUE: Chest 1 view, 2 images. COMPARISON: Chest radiograph and chest CT 12/27/2024 FINDINGS: Cardiovasculature and mediastinum: Heart size is normal. Unremarkable mediastinum. Lungs and pleural spaces: Similar prominent interstitial markings, may be secondary to low lung volumes. No consolidative opacity. No pleural effusion. No pneumothorax. Bones and soft tissues: No significant findings. IMPRESSION: Similar prominent interstitial markings, may be secondary to low lung volumes or mild pulmonary edema. No consolidative opacity. No significant change compared to prior chest radiograph Dictated by Mariela Bridges MD @ 12/31/2024 7:57:17 AM
[2024-12-31 07:57] LABS: Slide Review Acceptable Review (Acceptable)
[2024-12-31] MEDS: OMEPRAZOLE 20 MG CAPSULE DR PO (08:08)
[2024-12-31] MEDS: SODIUM CHLORIDE 1 GM TABLET PO ×3 (08:09→17:19)
[2024-12-31] MEDS: MORPHINE 4 MG/ML INJ 2 MG IVP ×4 (08:09→13:38)
[2024-12-31] MEDS: SODIUM CHLORIDE 0.9 % (FLUSH) 10 ML SYRINGE 5 ML IVF ×3 (08:10→21:49)
--- NOTE | 2024-12-31 08:15 | PM.ORPN ---
Subjective Subjective Time Seen by Provider: 07:15 Date Seen: 12/31/24 Principal diagnosis: Sepsis, cellulitis, left thigh pain Interval history: Eben was not able to have the MRI yesterday due to wheezing/respiratory. His MRI is on hold. He continues to have left thigh pain. Ortho Exam Narrative Exam Narrative: Alert and conversive. Patient is in no acute distress. Converses without labored breathing. Hearing is grossly intact. 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 He has not been mobile. Right lower leg cellulitis, large draining blister, right hand swollen erythematous/cellulitis Examination of the left lower extremity shows he is able to flex and extend his left ankle. Pedal pulses are palpable and 2+ on the left. Calf is soft and nontender. Incisions are well healed. No erythema or warmth or sign of infection. He he does have edema posterior hip. No fluctuance is palpable. Palpation of the femur and toggling of the femur does not cause any pain. I am able to passively flex his hip without significant pain. He does put his hand on his thigh stating he has pain when log-rolling the leg and lifting the leg however. CMS intact left lower extremity. End-stage arthritis right knee, however no effusion, no erythema or warmth or sign of infection. I am able to range the knee without significant pain. Const Vital Signs, click to edit/add: Vital Signs - 24 hr 12/30/24 11:00 12/30/24 15:00 12/30/24 15:00 Temperature 98.0 F Pulse Rate Pulse Rate [Pulse Oximeter] 76 82 Respiratory Rate 18 26 H Blood Pressure [Left Arm] 136/69 153/78 H Pulse Oximetry 95 95 95 Oxygen Delivery Method Room Air Room Air Oxygen Flow Rate 12/30/24 15:00 12/30/24 15:00 12/30/24 15:00 Temperature Pulse Rate 89 Pulse Rate [Pulse Oximeter] 82 Respiratory Rate Blood Pressure [Left Arm] Pulse Oximetry 95 Oxygen Delivery Method Room Air Oxygen Flow Rate 0 12/30/24 19:53 12/30/24 22:17 12/30/24 23:00 Temperature 98.5 F Pulse Rate 92 Pulse Rate [Pulse Oximeter] 88 Respiratory Rate 28 H Blood Pressure [Left Arm] 134/68 Pulse Oximetry 92 89 Oxygen Delivery Method Room Air Room Air Oxygen Flow Rate 12/30/24 23:00 12/30/24 23:55 12/31/24 03:00 Temperature 98.7 F 98.8 F Pulse Rate Pulse Rate [Pulse Oximeter] 97 89 Respiratory Rate 20 21 Blood Pressure [Left Arm] 146/70 H 129/63 Pulse Oximetry 89 89 91 Oxygen Delivery Method Room Air Room Air Oxygen Flow Rate Assessment and Plan Assessment and plan (1) Left hip pain: Problem details: - Recent IM nail for hip fracture. - 12/30 Now having pain. Concerned for the possibility of infection of the hardware (hip joint was not involved in fracture or recent surgery/hardware). Ortho consult. XR left hip above. Obtain MRI left hip (this had to be put on hold today due to wheezing and inability to lay flat for almost an hour today). Status: Acute Assessment and Plan: MRI left hip was ordered to rule out infection/osteomyelitis. MRI is on hold, due to respiratory concerns. MRI of the left hip/prosthesis with metal suppression is on hold. X-rays taken yesterday show no sign of new fractures. His hip fracture shows signs of healing. Prosthesis/short IM chaim is well placed and well-fixed. Orthopedics will watch for MRI results. (2) History of open reduction and internal fixation (ORIF) procedure: Problem details: Left hip fracture ORIF (10/28/2024, Dr. Mcmanus) Status: Acute (3) Sepsis: Problem details: -source is right leg. No known MRSA hx. MRSA pending. Bulla noted - likely a staph infection. -high likelihood of bacteremia. B/C pending. -broad spectrum initiated with Vanc/Cefepime. -LR for fluid bolus in this patient with SULAIMAN, mild CHF and edema but intravascularly dry (30cc/kg is not appropriate given his CHF; will do 250-500cc an hour as frequent reassessments -monitor urine output (Franco), blood pressure, pulse, lactate, respiratory status. Admitted to CCU. -sepsis criteria: temp, HR, RR, WBC count. Lactate >2, creatinine almost 2 and platelets 105 -also given his INR of 1.5 and DDimer elevation - likely due to endothelial activation and cytokine storm from infection. - 12/28 Lactate normalized. BP stable, WBC normalized, HR and Tachypnea improving. MS improving. MRSA swab from ruptured bulla today. BCx2 G+ cocci in chains. Continue vanco/cefepime. - 12/29 Sepsis resolved. Status: Acute
[2024-12-31] MEDS: timoloL maleate 0.5 % 1 DROP EYE-LEFT (08:21)
[2024-12-31] MEDS: cefTRIAXone 2 GM in 0.9 % SODIUM CHLORIDE Mini-bag 100 ML IVPB (13:39)
--- NOTE | 2024-12-31 14:34 | PC.NURSE ---
End of shift report [id number]: Alert and oriented x 4. Shortness of breath at rest, tachypneic with respirations 30 upon start of shift. Pain to left hip reported. PRN morphine utilized for pain and for shortness of breath, medication did reduce respirations to 24 with use and pain level reduced as well. Continues with edema to right upper extremity, BLE and LUE. Fine crackles throughout lung moreira. O2 90-91% on room air, patient does not tolerate head below 35 degrees, patient becomes increasingly short of breath and O2 sats decreased to mid 80's. Turn and reposition q2h while in bed. Franco catheter patent, draining straw colored urine. Dressing clean, dry and intact to RLE. OT placed call to lymphedema specialist to bring edema wear for patient. BLE elevated on pillows throughout the shift.
[2024-12-31] MEDS: LATANOPROST 0.005% OPHTH 1 DROP EYE-BOTH (17:19)
[2024-12-31] MEDS: LIDOCAINE 5% PATCH 1 PATCH TRANSDERMA (18:54)
[2024-12-31] MEDS: ACETAMINOPHEN 325 MG TABLET 650 MG PO (22:08)
--- NOTE | 2024-12-31 22:59 | PC.NURSE ---
end of shift: Pt. is AOx4. VSS. Pt. restful and sleepy. Mepilex placed on coccyx. T/Repo. w/ X2 assist. Franco catheter in place and patent. Pt. had low grade temp; Tylenol given. MD notified. See EMAR. Pt. R arm and R LE swollen, hot, and red. R inner thigh increase redness; MD notified.
[2025-01-01 03:05] VITALS: BP 127/55; PULSE 75; RESP 20; TEMP 37.1; O2SAT 90
[2025-01-01] MEDS: SODIUM CHLORIDE 0.9 % (FLUSH) 10 ML SYRINGE 5 ML IVF ×2 (04:18→08:36)
[2025-01-01] MEDS: FUROSEMIDE 10 MG/ML inj 40 MG IVP ×2 (04:18→13:08)
--- NOTE | 2025-01-01 05:41 | PC.NURSE ---
Pt alert and oriented x3. Afebrile. Pt reports 3/10 pain in left hip, offered pt pain medications pt refused stating no, I am fine. Pt's bhatia is patent and draining. Pt was turned and repositioned throughout night.
[2025-01-01 06:39] LABS: Hematocrit* 30.2 % (37.0-53.0); Hemoglobin* 10.2 gm/dL (13.5-17.5); Immature Granulocytes Pct Auto 5.8 %; Mean Corpuscular HGB Conc 34 gm/dL (32-36); Mean Corpuscular Hemoglobin 28 pg (26-34); Mean Corpuscular Volume 83 fL (80-100); RDW Coefficient of Variation % 15.4 % (11.5-15.5); Red Blood Count* 3.63 m/uL (4.30-5.90); White Blood Count* 15.40 K/uL (4.50-11.00)
[2025-01-01] MEDS: OMEPRAZOLE 20 MG CAPSULE DR PO (06:39)
[2025-01-01 06:46] VITALS: PULSE 81
[2025-01-01 06:49] LABS: Immature Granulocytes Abs Auto 0.90 K/uL (0.00-0.30); Lymphocytes Absolute Auto 1.30 K/uL (0.90-2.90); Slide Review Reflex No
[2025-01-01 06:51] LABS: Albumin* 2.8 g/dL (3.3-5.0); Chloride* 91 mmol/L (96-114); Sodium* 130 mmol/L (135-149)
[2025-01-01 06:52] LABS: Potassium* 3.2 mmol/L (3.6-5.1)
[2025-01-01 06:54] LABS: Blood Urea Nitrogen* 77 mg/dL (7-30); Creatinine* 2.2 mg/dL (0.5-1.5); Est. Creatinine Clearance* 27.21; Estimated Glomerular Filt Rate 28 ml/min
[2025-01-01 06:55] LABS: Anion Gap 5 mEq/L (7-15); Calcium* 8.4 mg/dL (8.4-10.6); Carbon Dioxide* 34 mmol/L (20-32); Glucose* 136 mg/dL (60-115)
--- NOTE | 2025-01-01 07:27 | PM.IMPN1 ---
Assessment and Plan Assessment and plan (1) Gram positive bacterial infection: Problem comment: - As above, continue vanco/cefepime - 12/29 Strep bacteremia. TTE no vegetation. MRSA swab neg. Await sensitivities, may need ID input, will likely need outpatient PILAR. Continue cefepime. D/c vanco. - 12/30 Mello sensitive group C strep infection of hand, legs and bacteremia, was possibly toxic shock syndrome. Discussed with ID (Dr. Kely Carlos) over the phone today who recommended obtaining daily blood cultures until these are neg. We discussed that he had a TTE this hospital stay, she did not think he needed a PILAR. She recommended ceftriaxone 2 g IV daily to continue for 14 day after blood cultures become neg. - 12/31 Bl Cx on 12/30 still negative. +ve murmer. outpatient PILAR D/W pt and family. Status: Acute (2) Acute exacerbation of chronic heart failure: Problem comment: -last echo in 2021 - normal LVEF (EF67%) with mild . -rec'd lasix in the ED but first priority is the sepsis, intravascular depletion and avoiding end organ assault -we can catch up diuresis once sepsis has resolved - 12/28 No exacerbation. EF lower on today's ECHO, around low 40's. Monitor, at risk for acute pulmonary edema. - 12/29 no signs of exacerbation. Stable, chronic HFpEF (formal read EF is 50-55%) - 12/30 Wheezing this afternoon. No hypoxia. Give one dose IV lasix. Continuous pulse ox. Recheck labs in am. - 12/31: Increase freq of lasix 40 IV to TID. CXR today; congested. Status: Acute (3) Left hip pain: Problem comment: - Recent IM nail for hip fracture. - 12/30 Now having pain. Concerned for the possibility of infection of the hardware (hip joint was not involved in fracture or recent surgery/hardware). Ortho consult. XR left hip above. Obtain MRI left hip (this had to be put on hold today due to wheezing and inability to lay flat for almost an hour today). - 12/31: He c/o left hip pain, but was unable to do MRI d/t orthopnea. Started lasix IV 40 x 8h . Status: Acute (4) Cellulitis of right lower leg: Problem comment: -venous duplex neg -broad spectrum antibiotics -treat the sepsis -mrsa swab neg - 12/28 MRSA swab pending. Continue vanco/cefepime. - 12/29 Treat as above in G+ bacterial infection - 12/30 Wound culture G+ cocci #1 and #2 - 12/31: slight improvement. MRSA screen -ve Status: Acute (5) Essential hypertension: Problem comment: -holding home meds - 12/28 no hypertension yet, continue to hold antihypertensive medications, monitor - 12/29 BP still not elevated, continue to monitor and hold antihypertensive medications - 12/30 no BP elevation. Continue to monitor and hold antihypertensive medications Status: Acute (6) Venous insufficiency: Problem comment: -chronic with stasis changes -ordered edem[place]ear Status: Acute (7) Anemia: Problem comment: Hemoglobin January 2023 was 13.5. ABLA this summer with hip fracture; rec'd one unit PRBCS. abhishek was 7.9. presentation today 10.7 - 12/28 stable - 12/30 slow downward trend. No obvious bleeding. Plts low, but stable. Hold enoxaparin. Monitor. Status: Acute (8) BPH (benign prostatic hyperplasia): Problem comment: -bhatia placed Status: Chronic (9) Chronic kidney disease: Problem comment: Stage IIIB, baseline creatinine 1.4-1.6. Today's creatinine is stable at 1.7 which is slightly down from admission at 1.8. Monitor. Status: Acute (10) Thrombocytopenia: Problem comment: Thrombocytopenia present since September, platelets lower today than they have been, likely due to sepsis. Holding enoxaparin due to downward trending hemoglobin Status: Acute (11) Sepsis: Problem comment: -source is right leg. No known MRSA hx. MRSA pending. Bulla noted - likely a staph infection. -high likelihood of bacteremia. B/C pending. -broad spectrum initiated with Vanc/Cefepime. -LR for fluid bolus in this patient with SULAIMAN, mild CHF and edema but intravascularly dry (30cc/kg is not appropriate given his CHF; will do 250-500cc an hour as frequent reassessments -monitor urine output (Bhatia), blood pressure, pulse, lactate, respiratory status. Admitted to CCU. -sepsis criteria: temp, HR, RR, WBC count. Lactate >2, creatinine almost 2 and platelets 105 -also given his INR of 1.5 and DDimer elevation - likely due to endothelial activation and cytokine storm from infection. - 12/28 Lactate normalized. BP stable, WBC normalized, HR and Tachypnea improving. MS improving. MRSA swab from ruptured bulla today. BCx2 G+ cocci in chains. Continue vanco/cefepime. - 12/29 Sepsis resolved. Status: Acute (12) Myocardial strain: Problem comment: -initial trop is 0.08, repeat 0.10. will follow. No acute ECG changes or symptoms of chest pain/heaviness. -EKG reviewed and compared to previous. -324mg aspirin administered -treat the sepsis - 12/28 trop improving. Asymptomatic. Status: Acute (13) Delirium: Problem comment: -intermittent, mild. He's confused tonight on timing and duration of symptoms. -treat the sepsis RESOLVED Status: Acute Total Time Spent Total Time Spent: Today I spent 50 minutes seeing the patient, reviewing Expanse and EPIC notes/diagnostics, discussing the care plan with our care time that includes social work, PT/OT, pharmacy, RT, long-term and documenting my impressions and plan in the medical record. Subjective Interval history: But no acute events overnight. He c/o left hip pain, but was unable to do MRI d/t orthopnea. Exam Narrative: Exam Narrative: Physical exam GENERAL: Comfortable, no acute distress. HEAD AND NECK: Atraumatic, normocephalic CARDIOVASCULAR: RRR. Normal S1, S2. No murmurs. RESPIRATORY: Clear to auscultation B/L. Good air entry B/L. No wheezes or rhonchi. GASTROINTESTINAL: Not distended, not tender to palpation. NEUROLOGY: Alert, awake, oriented X 3. Normal speech. No focal weakness. PSYCH: Normal mood, normal affect. Const: Vital Signs, click to edit/add: Vital Signs - 24 hr 12/31/24 11:00 12/31/24 16:00 12/31/24 16:00 Temperature 98.4 F 98.6 F Pulse Rate Pulse Rate [Pulse Oximeter] 71 85 Respiratory Rate 26 H 18 Blood Pressure [Le ft Arm] 126/58 L 123/58 L Blood Pressure [Ri ght Arm] Pulse Oximetry 90 89 89 Oxygen Delivery Me thod Room Air Room Air Oxygen Flow Rate 12/31/24 16:00 12/31/24 16:00 12/31/24 18:14 Temperature Pulse Rate 89 Pulse Rate [Pulse Oximeter] 85 Respiratory Rate 18 Blood Pressure [Le ft Arm] Blood Pressure [Ri ght Arm] Pulse Oximetry 89 Oxygen Delivery Me thod Room Air Oxygen Flow Rate 0 12/31/24 19:41 12/31/24 22:08 12/31/24 23:18 Temperature 98.7 F 100.8 F H 100.8 F H Pulse Rate Pulse Rate [Pulse Oximeter] 93 Respiratory Rate 16 Blood Pressure [Le ft Arm] 136/54 L Blood Pressure [Ri ght Arm] 132/71 Pulse Oximetry 90 Oxygen Delivery Me thod Room Air Oxygen Flow Rate 0 12/31/24 23:30 12/31/24 23:30 12/31/24 23:30 Temperature Pulse Rate Pulse Rate [Pulse Oximeter] 90 Respiratory Rate 24 24 Blood Pressure [Le ft Arm] Blood Pressure [Ri ght Arm] Pulse Oximetry 88 88 Oxygen Delivery Me thod Room Air Oxygen Flow Rate 0 12/31/24 23:31 12/31/24 23:35 12/31/24 23:35 Temperature 99.5 F 99.5 F Pulse Rate 90 Pulse Rate [Pulse Oximeter] 90 Respiratory Rate 24 Blood Pressure [Le ft Arm] 115/67 Blood Pressure [Ri ght Arm] Pulse Oximetry 88 Oxygen Delivery Me thod Room Air Oxygen Flow Rate 01/01/25 03:05 01/01/25 06:46 Temperature 98.8 F Pulse Rate 81 Pulse Rate [Pulse Oximeter] 75 Respiratory Rate 20 Blood Pressure [Le ft Arm] 127/55 L Blood Pressure [Ri ght Arm] Pulse Oximetry 90 Oxygen Delivery Me thod Room Air Oxygen Flow Rate Labs Labs: Laboratory Results - last 24 hr 12/31/24 01/01/25 05:58 05:56 WBC 15.40 H RBC 3.63 L Hgb 10.2 L Hct 30.2 L MCV 83 MCH 28 MCHC 34 RDW Coeff of Marita 15.4 Plt Count 158 Neut % (Auto) 78.0 H Lymph % (Auto) 8.3 L [place] % (Auto) 6.8 Eos % (Auto) 1.0 Baso % (Auto) 0.1 Neut # (Auto) 12.00 H Lymph # (Auto) 1.30 [place] # (Auto) 1.00 H Eos # (Auto) 0.20 Baso # (Auto) 0.00 Abs Immat Gran (auto) 0.90 H Imm/Tot Granulo (auto) 5.8 Diff Slide Review Acceptable Review Sodium 130 L Potassium 3.2 L Chloride 91 L Carbon Dioxide 34 H Anion Gap 5 L BUN 77 H Creatinine 2.2 H Estimated Creat Clear 27.21 Estimated GFR 28 Glucose 136 H Calcium 8.4 Phosphorus 4.1 C-Reactive Protein 31.2 H Albumin 2.8 L
[2025-01-01 07:40] VITALS: BP 133/59; PULSE 79; RESP 20; TEMP 36.7; O2SAT 90; O2SAT 92
[2025-01-01 08:17] LABS: Procalcitonin* 8.85 ng/mL (<0.50)
[2025-01-01 08:32] LABS: ABG PCO2 41 mmHG (35-45); HCO3 ABG 31 mmol/L (21-28); Oxygen Saturation ABG 92 % (92-100); PO2 ABG 57.9 mmHG (80-105); TCO2 ABG 28 mmol/l (21-30)
[2025-01-01] MEDS: SODIUM CHLORIDE 1 GM TABLET PO ×2 (08:35→13:08)
[2025-01-01] MEDS: POTASSIUM CHLORIDE 10 MEQ CAPSULE ER 60 MEQ PO (08:35)
[2025-01-01] MEDS: LACTOBACILLUS ACIDOPHILUS 1 TABLET 1 TAB PO (08:35)
[2025-01-01] MEDS: POTASSIUM BICARB 25 MEQ EFFERVESCENT TAB PO (08:36)
[2025-01-01] MEDS: timoloL maleate 0.5 % 1 DROP EYE-LEFT (08:38)
--- NOTE | 2025-01-01 10:02 | PC.PHA ---
Vancomycin consult note: Indication for vancomycin: + BC, sepsis, worsening condition Age: [89] Height: [190.5 cm] Weight: [117 kg] Most recent SCr: [2.2] Estimated CrCL: [approx 20] Recommended dose and frequency: [1.75 gm iv q48 hr] to obtain an estimated AUC/ANÍBAL of 400-600 mcg*hr/m Additional comment: []
[2025-01-01] MEDS: VANCOMYCIN 1.75 GM/350 ML 1.75 GM/350 ML PIGGYBACK IVPB (10:03)
[2025-01-01 11:15] VITALS: BP 130/55; PULSE 81; RESP 20; TEMP 36.8; O2SAT 90
--- NOTE | 2025-01-01 11:55 | PM.DS1 ---
DS: Providers Provider Date Seen: 01/01/25 Date of admission: 12/27/24 20:12 Primary care physician: Diane Sharp MD Admitting Clinician: Keturah Juarez MD Consults: 12/27/24 19:26 Consult to Occupational Therapy [CONS] Routine Comment: Reason(s) for OT Consult:: Evaluate and Treat Any Restrictions?:: No Restrictions Consult to Physical Therapy [CONS] Routine Comment: Reason(s) for PT Consult:: Evaluate and Treat Any Restrictions?:: No Restrictions Consult to Respiratory Therapy [CONS] Routine Comment: Reason(s) for RT Consult:: Consult Consult to [employer] [CONS] Routine Comment: Reason for Consult:: Social Service Consult 12/30/24 09:17 Consult to Physician [CONS] Routine Comment: Consulting Provider: Radha Etienne Has provider been notified: Yes 12/30/24 13:09 Consult to Infectious Diseases [CONS] Routine Comment: Consulting Provider: Franci TeleInfectious Disease Attending Physician on discharge: Keturah Juarez MD DS: Diagnosis Discharge Diagnosis (1) Gram positive bacterial infection: Status: Acute Problem details: - As above, continue vanco/cefepime - 12/29 Strep bacteremia. TTE no vegetation. MRSA swab neg. Await sensitivities, may need ID input, will likely need outpatient PILRA. Continue cefepime. D/c vanco. - 12/30 Mello sensitive group C strep infection of hand, legs and bacteremia, was possibly toxic shock syndrome. Discussed with ID (Dr. Kely Carlos) over the phone today who recommended obtaining daily blood cultures until these are neg. We discussed that he had a TTE this hospital stay, she did not think he needed a PILAR. She recommended ceftriaxone 2 g IV daily to continue for 14 day after blood cultures become neg. - 12/31 Bl Cx on 12/30 still negative. +ve murmer. outpatient PILAR D/W pt and family. - 01/01: Patient is transferred to [place] as he needed PILAR for suspected infective endocarditis and for more evaluation of his cellulitis in addition to the pending MRI that we were not able to do as patient was having severe orthopnea. (2) Acute exacerbation of chronic heart failure: Status: Acute Problem details: -last echo in 2021 - normal LVEF (EF67%) with mild . -rec'd lasix in the ED but first priority is the sepsis, intravascular depletion and avoiding end organ assault -we can catch up diuresis once sepsis has resolved - 12/28 No exacerbation. EF lower on today's ECHO, around low 40's. Monitor, at risk for acute pulmonary edema. - 12/29 no signs of exacerbation. Stable, chronic HFpEF (formal read EF is 50-55%) - 12/30 Wheezing this afternoon. No hypoxia. Give one dose IV lasix. Continuous pulse ox. Recheck labs in am. - 12/31: Increase freq of lasix 40 IV to TID. CXR today; congested. - 01/01: Patient is transferred to [place] as he needed PILAR for suspected infective endocarditis and for more evaluation of his cellulitis in addition to the pending MRI that we were not able to do as patient was having severe orthopnea. (3) Cellulitis of right lower leg: Status: Acute Problem details: -venous duplex neg -broad spectrum antibiotics -treat the sepsis -mrsa swab neg - 12/28 MRSA swab pending. Continue vanco/cefepime. - 12/29 Treat as above in G+ bacterial infection - 12/30 Wound culture G+ cocci #1 and #2 - 12/31: slight improvement. 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 (5) Left hip pain: Status: Acute Problem details: - Recent IM nail for hip fracture. - 12/30 Now having pain. Concerned for the possibility of infection of the hardware (hip joint was not involved in fracture or recent surgery/hardware). Ortho consult. XR left hip above. Obtain MRI left hip (this had to be put on hold today due to wheezing and inability to lay flat for almost an hour today). - 12/31: He c/o left hip pain, but was unable to do MRI d/t orthopnea. Started lasix IV 40 x 8h . (6) Acute kidney injury superimposed on CKD: Status: Acute Problem details: Stage IIIB, baseline creatinine 1.4-1.6. Creatinine on presentation is 1.8 creatinine increased to 2.2 after aggressive diuresing him (7) Essential hypertension: Status: Acute Problem details: -holding home meds - 12/28 no hypertension yet, continue to hold antihypertensive medications, monitor - 12/29 BP still not elevated, continue to monitor and hold antihypertensive medications - 12/30 no BP elevation. Continue to monitor and hold antihypertensive medications (8) Venous insufficiency: Status: Acute Problem details: -chronic with stasis changes -ordered ed[place]ear (9) Anemia: Status: Acute Problem details: Hemoglobin January 2023 was 13.5. ABLA this summer with hip fracture; rec'd one unit PRBCS. abhishek was 7.9. presentation today 10.7 - 12/28 stable - 12/30 slow downward trend. No obvious bleeding. Plts low, but stable. Hold enoxaparin. Monitor. (10) BPH (benign prostatic hyperplasia): Status: Chronic Problem details: -bhatia placed (11) Thrombocytopenia: Status: Acute Problem details: Thrombocytopenia present since September, platelets lower today than they have been, likely due to sepsis. Holding enoxaparin due to downward trending hemoglobin (12) Sepsis: Status: Acute Problem details: -source is right leg. No known MRSA hx. MRSA pending. Bulla noted - likely a staph infection. -high likelihood of bacteremia. B/C pending. -broad spectrum initiated with Vanc/Cefepime. -LR for fluid bolus in this patient with SULAIMAN, mild CHF and edema but intravascularly dry (30cc/kg is not appropriate given his CHF; will do 250-500cc an hour as frequent reassessments -monitor urine output (Bhatia), blood pressure, pulse, lactate, respiratory status. Admitted to CCU. -sepsis criteria: temp, HR, RR, WBC count. Lactate >2, creatinine almost 2 and platelets 105 -also given his INR of 1.5 and DDimer elevation - likely due to endothelial activation and cytokine storm from infection. - 12/28 Lactate normalized. BP stable, WBC normalized, HR and Tachypnea improving. MS improving. MRSA swab from ruptured bulla today. BCx2 G+ cocci in chains. Continue vanco/cefepime. - 12/29 Sepsis resolved. (13) Myocardial strain: Status: Acute Problem details: -initial trop is 0.08, repeat 0.10. will follow. No acute ECG changes or symptoms of chest pain/heaviness. -EKG reviewed and compared to previous. -324mg aspirin administered -treat the sepsis - 12/28 trop improving. Asymptomatic. (14) Delirium: Status: Acute Problem details: -intermittent, mild. He's confused tonight on timing and duration of symptoms. -treat the sepsis RESOLVED (15) CKD stage 3b, GFR 30-44 ml/min: Status: Acute Problem details: Stage IIIB, baseline creatinine 1.4-1.6. Creatinine on presentation is 1.8 creatinine increased to 2.2 after aggressive diuresing him DS: Summary Hospital Course Hospital Course: An 89-year-old male patient with past medical history of hypertension, CHF, CKD in thrombocytopenia who presents to the ED with right upper extremity and right lower extremity cellulitis. Patient was found to have bacteremia and his blood cultures grew group C strep infection. Discussed with ID (Dr. Kely Carlos) over the phone today who recommended obtaining daily blood cultures until these are neg. She recommended ceftriaxone 2 g IV daily to continue for 14 day after blood cultures become neg. Echo was done during this admission at did not show valve vegetations. During his stay patient was found to have exacerbation of his heart failure + fluid overload in the lungs and he needed aggressive diuresis, and though patient received IV Lasix in adequate dosing and frequency ( he was giving really good urine output), he was still complaining or of orthopnea and desatting once he is laying down flat which also was a problem because we could not do an MRI for him to rule out infection of the hardware of his left hip that he received during the recent orthopedic procedure. Patient was found to have a new murmer. Patient is transferred to [place] as he needed PILAR for suspected infective endocarditis and for more evaluation of his cellulitis in addition to the pending MRI that we were not able to do as patient was having severe orthopnea. Status at Discharge Overall status at discharge: patient is not back to baseline Time Spent with Patient Time attestation: Total time spent providing and/or coordinating discharge services: Exam Narrative: Exam Narrative: Physical exam GENERAL: Pt looks tired. HEAD AND NECK: Atraumatic, normocephalic CARDIOVASCULAR: RRR. Normal S1, S2. Positive murmur. RESPIRATORY: Good air entry B/L. +ve wheezes & rhonchi. GASTROINTESTINAL: Not distended, not tender to palpation. MSK : RLE w/ edema & erythema, but continues to recede from lines drawn. Rt hand edema. NEUROLOGY: Alert, awake. Normal speech. Const: Vital Signs, click to edit/add: Vital Signs - 24 hr 12/31/24 16:00 12/31/24 16:00 12/31/24 16:00 Temperature 98.6 F Pulse Rate Pulse Rate [Pulse Oximeter] 85 Respiratory Rate 18 18 Blood Pressure [Le ft Arm] 123/58 L Blood Pressure [Ri ght Arm] Pulse Oximetry 89 89 89 Oxygen Delivery Me thod Room Air Room Air Oxygen Flow Rate 0 Fraction of Inspir ed Oxygen 12/31/24 16:00 12/31/24 18:14 12/31/24 19:41 Temperature 98.7 F Pulse Rate 89 Pulse Rate [Pulse Oximeter] 85 93 Respiratory Rate 16 Blood Pressure [Le ft Arm] 136/54 L Blood Pressure [Ri ght Arm] 132/71 Pulse Oximetry 90 Oxygen Delivery Me thod Room Air Oxygen Flow Rate 0 Fraction of Inspir ed Oxygen 12/31/24 22:08 12/31/24 23:18 12/31/24 23:30 Temperature 100.8 F H 100.8 F H Pulse Rate Pulse Rate [Pulse Oximeter] Respiratory Rate Blood Pressure [Le ft Arm] Blood Pressure [Ri ght Arm] Pulse Oximetry 88 Oxygen Delivery Me thod Oxygen Flow Rate Fraction of Inspir ed Oxygen 12/31/24 23:30 12/31/24 23:30 12/31/24 23:31 Temperature Pulse Rate 90 Pulse Rate [Pulse Oximeter] 90 Respiratory Rate 24 24 Blood Pressure [Le ft Arm] Blood Pressure [Ri ght Arm] Pulse Oximetry 88 Oxygen Delivery Me thod Room Air Oxygen Flow Rate 0 Fraction of Inspir ed Oxygen 12/31/24 23:35 12/31/24 23:35 01/01/25 03:05 Temperature 99.5 F 99.5 F 98.8 F Pulse Rate Pulse Rate [Pulse Oximeter] 90 75 Respiratory Rate 24 20 Blood Pressure [Le ft Arm] 115/67 127/55 L Blood Pressure [Ri ght Arm] Pulse Oximetry 88 90 Oxygen Delivery Me thod Room Air Room Air Oxygen Flow Rate Fraction of Inspir ed Oxygen 01/01/25 06:46 01/01/25 07:40 01/01/25 07:40 Temperature Pulse Rate 81 Pulse Rate [Pulse Oximeter] Respiratory Rate 20 Blood Pressure [Le ft Arm] Blood Pressure [Ri ght Arm] Pulse Oximetry 92 90 Oxygen Delivery Me thod Room Air Oxygen Flow Rate 0 Fraction of Inspir ed Oxygen 01/01/25 07:40 01/01/25 07:40 01/01/25 10:05 Temperature 98.0 F Pulse Rate Pulse Rate [Pulse Oximeter] 79 79 Respiratory Rate 20 20 Blood Pressure [Le ft Arm] Blood Pressure [Ri ght Arm] 133/59 L Pulse Oximetry 92 Oxygen Delivery Me thod Room Air Room Air Oxygen Flow Rate 0 Fraction of Inspir ed Oxygen 0.21 01/01/25 11:15 Temperature 98.3 F Pulse Rate Pulse Rate [Pulse Oximeter] 81 Respiratory Rate 20 Blood Pressure [Le ft Arm] Blood Pressure [Ri ght Arm] 130/55 L Pulse Oximetry 90 Oxygen Delivery Me thod Room Air Oxygen Flow Rate 0 Fraction of Inspir ed Oxygen 0.21 DS: Data Data Completed and Pending Completed studies during hospitalization: Procedures Reposition Left Upper Femur with Intramedullary Internal Fixation Device, Open Approach (10/27/24) Transfusion of Nonautologous Red Blood Cells into Peripheral Vein, Percutaneous Approach (10/27/24) Labs on day of discharge: Labs from last 24 hours 01/01/25 01/01/25 01/01/25 11:17 08:20 07:39 WBC RBC Hgb Hct MCV MCH MCHC RDW Coeff of Marita Plt Count Neut % (Auto) Lymph % (Auto) Curry % (Auto) Eos % (Auto) Baso % (Auto) Neut # (Auto) Lymph # (Auto) Curry # (Auto) Eos # (Auto) Baso # (Auto) Abs Immat Gran (auto) Imm/Tot Granulo (auto) ABG pH 7.48 H ABG pCO2 41 ABG pO2 57.9 L ABG HCO3 31 H ABG Total CO2 28 ABG O2 Saturation 92 ABG Base Excess 6.5 H Sodium Potassium Chloride Carbon Dioxide Anion Gap BUN Creatinine Estimated Creat Clear Estimated GFR Glucose Calcium Phosphorus Magnesium Troponin I C-Reactive Protein NT-Pro-B Natriuret Pep Albumin Procalcitonin Lab Acknowledgement Test Added Test Added 01/01/25 05:56 WBC 15.40 H RBC 3.63 L Hgb 10.2 L Hct 30.2 L MCV 83 MCH 28 MCHC 34 RDW Coeff of Marita 15.4 Plt Count 158 Neut % (Auto) 78.0 H Lymph % (Auto) 8.3 L Curry % (Auto) 6.8 Eos % (Auto) 1.0 Baso % (Auto) 0.1 Neut # (Auto) 12.00 H Lymph # (Auto) 1.30 Curry # (Auto) 1.00 H Eos # (Auto) 0.20 Baso # (Auto) 0.00 Abs Immat Gran (auto) 0.90 H Imm/Tot Granulo (auto) 5.8 ABG pH ABG pCO2 ABG pO2 ABG HCO3 ABG Total CO2 ABG O2 Saturation ABG Base Excess Sodium 130 L Potassium 3.2 L Chloride 91 L Carbon Dioxide 34 H Anion Gap 5 L BUN 77 H Creatinine 2.2 H Estimated Creat Clear 27.21 Estimated GFR 28 Glucose 136 H Calcium 8.4 Phosphorus 4.1 Magnesium 1.6 Troponin I Pending C-Reactive Protein 30.2 H NT-Pro-B Natriuret Pep Pending Albumin 2.8 L Procalcitonin 8.85 H Lab Acknowledgement Preliminary micro results at discharge 12/31/24 06:04 Blood Culture - Preliminary Blood NO GROWTH AFTER 24 HOURS 12/31/24 05:58 Blood Culture - Preliminary Blood NO GROWTH AFTER 24 HOURS 12/30/24 14:44 Blood Culture - Preliminary Blood NO GROWTH AFTER 24 HOURS 12/30/24 14:48 Blood Culture - Preliminary Blood NO GROWTH AFTER 24 HOURS Discharge Plan Discharge Disposition: [facility] Date of Admission: 12/27/24 20:12 Attending Provider on Discharge: Jovita Zapien Primary Care Provider: Diane Sharp Discharge Orders: Transfer of Care to Other Hospital (ORDER); Ordered 01/01/25 Ordered By: Jovita Zapien Oxygen: No Urinary Catheter: Yes Services not available here: cardiology, Infectious Disease
--- NOTE | 2025-01-01 13:25 | PC.NURSE ---
Transfer. pt has been very pleasant. Pt. is AOx4. he has left hip pain and got po oxycodone. VSS. Mepilex placed on coccyx. T/Repo. w/ X2 assist every 2-3 hours/ . Franco catheter in place and patent. Pt. R arm and R LE swollen, hot, and red. R inner thigh increase redness; it is outlined. 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 he is not able to use the right arm due to the swelling./ tele shows NSR. SL is patent. 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 am cares where done
[2025-01-01 13:40] LABS: NT Pro B Type NatriureticPept* 3380 pg/mL (See Note)
== END 2025-01-01 13:45 | disposition short-term general hospital (02) | DRG 871 ==
LOC: ED 17:16 → MEDSURG 18:39
PROVIDERS: Family Medicine; Student in an Organized Health Care Education/Training Program; Admitting Provider Family Medicine; Emergency Provider Internal Medicine; PCP Podiatrist Foot & Ankle Surgery; Visit Provider Family Medicine
DX: A40.8 Other streptococcal sepsis (principal); A48.3 Toxic shock syndrome; I33.0 Acute and subacute infective endocarditis; I50.33 Acute on chronic diastolic (congestive) heart failure; L03.115 Cellulitis of right lower limb; N17.9 Acute kidney failure, unspecified; L97.419 Non-pressure chronic ulcer of right heel and midfoot with unspecified severity; L97.219 Non-pressure chronic ulcer of right calf with unspecified severity; I13.0 Hypertensive heart and chronic kidney disease with heart failure and stage 1 through stage 4 chronic kidney disease, or unspecified chronic kidney disease; L03.113 Cellulitis of right upper limb; N18.32 Chronic kidney disease, stage 3b; B95.4 Other streptococcus as the cause of diseases classified elsewhere; I87.2 Venous insufficiency (chronic) (peripheral); E66.9 Obesity, unspecified; R41.0 Disorientation, unspecified; D64.9 Anemia, unspecified; D69.6 Thrombocytopenia, unspecified; M25.552 Pain in left hip; S72.002D Fracture of unspecified part of neck of left femur, subsequent encounter for closed fracture with routine healing; E78.5 Hyperlipidemia, unspecified; N40.0 Benign prostatic hyperplasia without lower urinary tract symptoms; Z85.46 Personal history of malignant neoplasm of prostate
CPT/HCPCS: 36415; 36600; 51701; 71045; 71275; 73502; 73552; 74177; 80048; 80053; 80069; 81001; 81003; 82803; 83540; 83550; 83605; 83735; 83880; 84132; 84145; 84443; 84484; 85025; 85379; 85610; 86140; 87040; 87070; 87081; 87086; 87186; 87205; 87631; 87800; 93005; 93306; 93970; 94664; 94761; 97110; 97162; 97166; 97530; 97535; 99285; A9270; J0692; J0696; J1171; J1650; J1938; J2060; J2270; J2470; J3375; J7050; J7120; Q9967

== ENCOUNTER 2025-01-01 13:30 | Outpatient (CLI) | payer MEDICARE, SELFPAY | END 2025-01-01 13:31 | disposition home or self-care (01) | LOC: AMB 01-06 10:22 | PROVIDERS: PCP Podiatrist Foot & Ankle Surgery; Visit Provider Student in an Organized Health Care Education/Training Program | DX: A49.9 Bacterial infection, unspecified (principal); L03.115 Cellulitis of right lower limb; I50.9 Heart failure, unspecified | CPT/HCPCS: A0425; A0427 ==